=== PATIENT | male | born 1945 | race Caucasian/White ===

== ENCOUNTER 2021-07-11 19:16 | Emergency (ER) | payer MEDICARE, SELFPAY ==
[2021-07-11 19:18] VITALS: BP 145/95; PULSE 98; RESP 18; TEMP 36.8; O2SAT 99
--- NOTE | 2021-07-11 20:59 | ED.WOUNDLAC ---
HPI - Wound/Laceration General Chief Complaint: Wound/Laceration Stated Complaint: cellulitis Time Seen by Provider: 07/11/21 20:35 Source: patient History of Present Illness HPI narrative: Patient presents with concern for cellulitis. Ports a history of cellulitis and reports its painful and warm however his findings today are not the same but he was not sure what it was he came to ER for evaluation. Patient was been golfing all day had no injury that he can remember he got home and noted some redness on his right ankle that was on painful took pictures and his and was encouraged to go to the ER for further evaluation. Denies any trauma to the area denies any pain to the area denies any focal numbness or weakness denies any draining wounds denies any fevers, cough, congestion, nausea, vomiting Related Data Allergies Allergy/AdvReac Type Severity Reaction Status Date / Time No Known Allergies Allergy Unknown NONE Verified 07/11/21 19:22 Review of Systems Review of Systems: CONSTITUTIONAL: Denies fever, chills, or sweats. EYES: Denies visual changes, redness, or discharge. ENT: Denies rhinorrhea, congestion, sore throat, or otalgia. CARDIOVASCULAR: Denies chest pain, palpitations, or edema. RESPIRATORY: Denies cough or dyspnea. GASTROINTESTINAL: Denies abdominal pain, nausea, vomiting, or diarrhea. GENITOURINARY: Denies dysuria or hematuria. SKIN: Denies rash or itching. MUSCULOSKELETAL: Denies back pain, joint pain, or myalgia. NEUROLOGIC: Denies headache, numbness, dizziness, or weakness. PSYCHIATRIC: Denies anxiety or depression. All systems reviewed & are unremarkable except as noted in HPI and below PMFSH Family History Family History Other Family history of cardiovascular disease Social History Social History Smoking status: Smoker, status unknown Alcohol intake: current Exam Narrative: GENERAL: Well-appearing, well-nourished, and in no acute distress. HEAD: Normocephalic, atraumatic. EYES: PERRLA and EOMI. ENT: Nares clear, no rhinorrhea or epistaxis. Mucous membranes moist. NECK: Supple. No masses. No JVD EXTREMITIES: Normal range of motion. Nonblanching erythema on the medial aspect of the right ankle no tenderness no warmth no deformity no fluctuance SKIN: Warm, dry, no rash. NEURO: No focal deficits. Alert and oriented x3. PSYCH: Normal mood and affect. Course Vital Signs Vital signs: Vital Signs Temperature 36.8 C 07/11/21 19:18 Pulse Rate 98 07/11/21 19:18 Respiratory Rate 18 07/11/21 19:18 Blood Pressure 145/95 H 07/11/21 19:18 Pulse Oximetry 99 07/11/21 19:18 Oxygen Delivery Room Air 07/11/21 19:18 Temperature 36.8 C 07/11/21 19:18 Pulse Rate 98 07/11/21 19:18 Respiratory Rate 18 07/11/21 19:18 Blood Pressure 145/95 H 07/11/21 19:18 Pulse Oximetry 99 07/11/21 19:18 Oxygen Delivery Room Air 07/11/21 19:18 MDM - Wound/Laceration MDM Narrative Medical decision making narrative: H&P as above, vss, pt looks clinically well, exam redness without tenderness or warmth, labs/img considered, symptomatic relief available as needed, on reevaluation pt continues to looks clinically well. Suspect ruptured capillary, dns cellulitis, abscess's, fracture, major neurovascular compromise. plan to tx/monitor as op w/ pcm f/u findings/plan discussed with pt, pt agree/comfortable with plan, return precautions given Discharge Plan Discharge Clinical Impression: Blood vessel injury Patient Disposition: Home, Self-Care Condition: Improved Instructions: Antibiotic Form Additional Instructions: Please return if your symptoms worsen or fail to improve. If you develop a fever, can not eat/drink anything or if you have any other concerns. Follow-up/Referrals: Corey,Jesus Pritchard MD [Primary Care Provider] - Time of Disposition: 21:04
== END 2021-07-11 21:14 | disposition home or self-care (01) ==
LOC: ANHED 21:05
PROVIDERS: Emergency Provider Emergency Medicine; PCP Internal Medicine
DX: S95.901A Unspecified injury of unspecified blood vessel at ankle and foot level, right leg, initial encounter (principal); X58.XXXA Exposure to other specified factors, initial encounter
CPT/HCPCS: 99282

== ENCOUNTER 2021-11-05 10:45 | Outpatient (CLI) | payer MEDICARE, SELFPAY ==
--- NOTE | ~2021-11-05 | US_ITS ---
EXAMINATION:US venous doppler LE BI INDICATION:Lower extremity edema TECHNIQUE: Multiple grayscale, color flow and Doppler images of the right and left lower extremity de ep venous systems were obtained and reviewed. COMPARISON:No prior studies for comparison. FINDINGS: The common femoral, superficial femoral and popliteal veins demonstrate normal respiratory variation, augmentation and compressibility. Color flow is also seen within the posterior tibial, pe roneal, greater saphenous and profunda veins. IMPRESSION: 1: No lower extremity deep venous thrombosis. Reviewed, dictated and finalized at location B.
== END 2021-11-05 10:46 | disposition home or self-care (01) ==
PROVIDERS: PCP Internal Medicine; Visit Provider Orthopaedic Surgery
DX: R60.0 Localized edema (principal)
CPT/HCPCS: 93970

== ENCOUNTER 2021-12-18 12:32 | Outpatient (CLI) | payer MEDICARE, SELFPAY ==
--- NOTE | 2021-12-18 | ECHO_ITS ---
Patient Info Name: Aly Downey Age: 75 years : 1945 Gender: Male Ht: 67 in Wt: 189 lbs BSA: 2.04 m2 HR: 78 bpm BP: 136 / 88 mmHg Heart Rhythm: Sinus Rhythm Exam Date: 12/18/2021 1:06 PM Exam Location: [facility] Patient Status: Outpatient Admit Date: 12/18/2021 Staff Ordering Physician: Elin*Jesus MD Dry Starch Supervisor: Tali Garcia RDCS Attending Provider: Elin*Jesus MD Referring Physician: Corey CORTEZ; Exam Type: CA echo doppler color flow Study Info Indications - coronary microvascular disease Complete two-dimensional, color flow and Doppler transthoracic echocardiogram is performed. Summary 1. Complete two-dimensional, color flow and Doppler transthoracic echocardiogram is performed. 2. Left ventricular systolic function is normal, estimated at 50-55%. 3. Right ventricular chamber dimension is enlarged. 4. Right ventricular systolic function is normal. 5. Right atrial chamber dimension is mildly enlarged. 6. There is trace tricuspid valve regurgitation. 7. The aortic root size at the sinus of Valsalva is dilated. Left Ventricle Left ventricular chamber dimension is normal. Left ventricular systolic function is normal, estimated at 50-55%. There is no increased left ventricular wall thickness. Right Ventricle Right ventricular chamber dimension is enlarged. Right ventricular systolic function is normal. Left Atria Left atrial chamber dimension is normal. Right Atria Right atrial chamber dimension is mildly enlarged. Atrial Septum Intact interatrial septum visualized by color flow imaging. Aortic Valve The aortic valve is probable trileaflet. There is no aortic valve stenosis. There is no aortic valve regurgitation. Pulmonic Valve The pulmonic valve is not well visualized. Mitral Valve The mitral valve has normal leaflets. There is no mitral valve stenosis. There is no mitral valve regurgitation. Tricuspid Valve The tricuspid valve leaflets are normal. There is no significant tricuspid valve stenosis. There is trace tricuspid valve regurgitation. Pericardium/Pleural There is no pericardial effusion. Inferior Vena Cava Normal inferior vena cava with >50% collapse upon inspiration consistent with normal right atrial pressure. Aorta The aortic root size at the sinus of Valsalva is dilated. Left Ventricular Outflow Tract Name Value Normal LVOT 2D LVOT Diameter 2.0 cm LVOT Doppler LVOT Peak Gradient 3 mmHg LVOT Mean Gradient 2 mmHg LVOT VTI 15 cm LVOT VTI/AV VTI Ratio 0.7 LVOT Stroke Volume 48 ml LVOT CO 4.1 l/min LVOT CI 2.0 l/min/m2 Mitral Valve Name Value Normal MV Doppler
--- NOTE | 2021-12-19 12:44 | WPDPFTINT ---
PFT Procedure Performed PFT Procedure Performed Spirometry with Pre/Post Bronchodilator Plethysmography (Lung Vol) Diffusing Cap (DLCO) Flow Vol Loop PFT Interpretation Lung volumes were measured with the body plethysmography method. The elevated residual volume and FRC could be due to air trapping. Lung volumes are unremarkable. Spirometry showed normal FVC, normal FEV1 but diminished mid expiratory flow rates and a diminished FEV1 to FVC ratio 62%, suggestive of mild obstructive airway disease. Following administration of a bronchodilator there was no significant increase in expiratory flow rates. Lung diffusion capacity is within the normal range at 92% predicted. In comparison to previous study in 2019, the FVC is now greater by approximately 1.3 L and FEV1 is also greater by approximately 1.45 L. Lung volumes are essentially unchanged as is the lung diffusion capacity. Impression: Mild obstructive airway disease with no response to bronchodilators on this testing. Significantly improved since 2019.
== END 2021-12-18 12:33 | disposition home or self-care (01) ==
LOC: ANHCARD 12:33
PROVIDERS: PCP Internal Medicine; Visit Provider Internal Medicine
DX: I24.8 Other forms of acute ischemic heart disease (principal)
CPT/HCPCS: 93306; 94060; 94726; 94729

== ENCOUNTER 2022-03-15 21:37 | Emergency (ER) | payer MEDICARE, SELFPAY ==
--- NOTE | ~2022-03-15 | XR_ITS ---
Clinical Indication: Shortness of breath PA and lateral views of the chest: Comparison: None Findings: The lungs are clear, without evidence of focal consolidation or pleural effusion. Cardiome diastinal silhouette is within normal limits. Bones and soft tissues are unremarkable. Impression: Normal chest. Reviewed, dictated and finalized at [facility]. CAL AUTHORIZATION SPECIALIST Impression: Normal chest.
[2022-03-15 21:37] VITALS: BP 165/80; PULSE 90; RESP 18; TEMP 36.4; O2SAT 100
--- NOTE | 2022-03-15 21:59 | ECG_ITS ---
Measurements Intervals Wayne Rate: 80 P: 52 MD: 177 QRS: -71 QRSD: 174 T: 79 QT: 411 QTc: 475 Interpretive Statements SINUS RHYTHM RIGHT BUNDLE BRANCH BLOCK LEFT ANTERIOR FASCICULAR BLOCK LEFT VENTRICULAR HYPERTROPHY AND ST-T CHANGE CANNOT RULE OUT ANTEROSEPTAL INFARCT AGE INDETERMINATE ABNORMAL ECG NO PREVIOUS ECG AVAILABLE FOR COMPARISON Electronically Signed On 03-16-2022 16:15:20 SPECIAL PROCEDURES TECH by Storm Montano M.D.
[2022-03-15 22:28] LABS: Basophils Absolute Auto 0.1 K/mm3 (0.0-0.1); Basophils Percent Auto 0.8 % (0.2-1.2); Eosinophils Absolute Auto 0.5 K/mm3 (0-0.3); Eosinophils Percent Auto 7.5 % (0-4.4); Hematocrit 41.2 % (42.0-52.0); Immature Granulocyte Absolute 0.02 K/mm3 (0.00-0.031); Immature Granulocyte Percent A 0.3 % (0-0.5); Lymphocytes Absolute Auto 1.85 K/mm3 (0.9-3.2); Lymphocytes Percent Auto 25.7 % (18.3-44.2); Mean Corpuscular HGB Conc 31.6 g/dl (32-36); Mean Corpuscular Hemoglobin 29.2 pg (26-34); Mean Corpuscular Volume 92.6 fl (80-100); Mean Platelet Volume 9.7 fl (7.4-10.4); Monocytes Absolute Auto 0.6 K/mm3 (0.1-0.6); Monocytes Percent Auto 8.8 % (2.6-8.5); Neutrophils Absolute Auto 4.1 K/mm3 (1.3-6.7); Neutrophils Percent Auto 56.9 % (45.5-73.1); Platelet Count Result 232 k/mm3 (150-375); Red Blood Count 4.45 M/mm3 (4.6-6.20); Red Cell Distribution Width 13.2 % (11.5-14.5); White Blood Count 7.2 K/mm3 (4.5-10.0)
[2022-03-15 22:39] LABS: Alanine Aminotransferase 24 U/L (6-50); Albumin Level 3.9 g/dL (3.5-5.1); Alkaline Phosphatase 63 U/L (38-126); Anion Gap 4 mmol/L (8-16); Aspartate Amino Transferase 31 U/L (17-59); Bilirubin,Total 0.5 mg/dL (0.2-1.3); Blood Urea Nitrogen 18 mg/dL (9-20); Calcium 9.1 mg/dL (8.4-10.2); Carbon Dioxide 29 mmol/L (22-30); Chloride 106 mmol/L (98-107); Estimated CRCL calculation 61 ml/min; Estimated Glomerular Filt Rate > 60; Glucose 102 mg/dL (65-110); Potassium 4.4 mmol/L (3.4-5.0); Sodium 139 mmol/L (137-145)
--- NOTE | 2022-03-15 23:34 | ED.GENADULT ---
HPI - General Adult General Chief complaint: Shortness of Breath/Dyspnea Stated complaint: trouble breathing Time Seen by Provider: 03/15/22 23:06 History of Present Illness HPI narrative: 76-year-old male presented emerged department for evaluation of shakiness. Patient recently had his Symbicort switched and has been using his rescue inhaler more frequently. Patient states that intermittently after using the inhaler he had increased anxiety and shakiness. Patient states that he has been using inhaler multiple times a day but has not been using a spacer with this. Patient was concerned and using the inhaler more frequently because he felt that it was not working for him. Patient states he does have a spacer at home but has not been using it In the emergency room and patient states that he feels he is breathing without difficulty and denies any anxiety and has no shaking. Patient states he does have follow-up scheduled with his primary care physician to discuss the maintenance medication but they were concerned due to the shaking so they presented to the emergency department for evaluation Related Data Allergies Allergy/AdvReac Type Severity Reaction Status Date / Time No Known Allergies Allergy Unknown NONE Verified 07/11/21 19:22 Review of Systems Review of Systems: CONSTITUTIONAL: Denies fever, chills, or sweats. EYES: Denies visual changes, redness, or discharge. ENT: Denies rhinorrhea, congestion, sore throat, or otalgia. CARDIOVASCULAR: Denies chest pain, palpitations, or edema. RESPIRATORY: See HPI GASTROINTESTINAL: Denies abdominal pain, nausea, vomiting, or diarrhea. GENITOURINARY: Denies dysuria or hematuria. SKIN: Denies rash or itching. MUSCULOSKELETAL: Denies back pain, joint pain, or myalgia. NEUROLOGIC: Denies headache, numbness, or weakness. PSYCHIATRIC: Denies anxiety or depression. PMFSH Family History Family History Other Family history of cardiovascular disease Social History Social History Smoking status: Smoker, status unknown Alcohol intake: current Exam Narrative: APPEARANCE: Well appearing, no pain, no distress, well-nourished. HEAD: normocephalic, atraumatic. EYES: PERRLA/EOMI, conjunctivae clear. NOSE: Normal no drainage NECK: Supple. No adenopathy, no masses. RESPIRATORY: Airway patent, respirations nonlabored. Clear to auscultation bilaterally, no rales, rhonchi, wheezing. CARDIOVASCULAR: Regular rate and rhythm without murmurs rubs or gallops. ABDOMINAL: Soft, nontender, nondistended, normal bowel sounds MUSCULOSKELETAL: Moves all extremities. Strength/ROM intact, No edema, No calf tenderness. NEURO: Alert. Cranial nerves II through XII intact. Grossly intact SKIN: Warm, dry. Normal Color PSYCHIATRIC: Anxious affect Course Course Emergency Course: Patient is afebrile and is saturating 100% on room air. Patient did have elevated blood pressure upon arrival but this has improved. Patient's labs are within normal limits and chest x-ray showed no acute cardiopulmonary normality. Patient appears to be using his albuterol rescue inhaler increased frequency and incorrectly. Patient was advised to start using the spacer and to only use his albuterol 1 to 2 puffs every 4-6 hours. Patient and are comfortable with the plan for follow-up. They will have close follow-up with her primary care physician to discuss maintenance medication to help control his shortness of breath. At time of discharge patient's lungs were clear to auscultation he was saturating 100% on room air. Patient had no baseline tremor and patient's blood pressure was improved. Patient was afebrile with no leukocytosis. Patient's CMP was similar to his baseline. Differential diagnosis of pneumonia/rigors was also considered but with a negative chest x-ray and normal vitals this was less likely. Vital Signs Vital
[2022-03-16 00:18] VITALS: BP 134/59; PULSE 80; RESP 16; O2SAT 100
== END 2022-03-16 00:19 | disposition home or self-care (01) ==
PROVIDERS: Emergency Provider Emergency Medicine; PCP Internal Medicine
DX: T48.6X1A Poisoning by antiasthmatics, accidental (unintentional), initial encounter (principal); R25.8 Other abnormal involuntary movements; I45.2 Bifascicular block; R94.31 Abnormal electrocardiogram [ECG] [EKG]; I51.7 Cardiomegaly
CPT/HCPCS: 36415; 71046; 80053; 85025; 93005; 99284

== ENCOUNTER 2023-01-06 09:04 | Emergency (ER) | payer MEDICARE, SELFPAY ==
--- NOTE | ~2023-01-06 | US_ITS ---
EXAMINATION:US venous doppler LE LT INDICATION:Leg edema. TECHNIQUE: Multiple grayscale, color flow and Doppler images of the left lower extremity deep venous systems were obtained and reviewed. COMPARISON:11/05/2021 FINDINGS: The common femoral, superficial femoral and popliteal veins demonstrate normal respiratory variation, augmentation and compressibility. Color flow is also seen within the posterior tibial, pe roneal, greater saphenous and profunda veins. IMPRESSION: 1: No lower extremity deep venous thrombosis. Reviewed, dictated and finalized at location B. S AND EVENTS COORDINATOR
[2023-01-06 09:05] VITALS: BP 156/86; PULSE 98; RESP 16; TEMP 36.6; O2SAT 100
--- NOTE | 2023-01-06 10:02 | ED.EXTPRO ---
HPI - Extremity Problem General Chief complaint: Extremity Problem,Nontraumatic Stated complaint: extremity swelling Time Seen by Provider: 01/06/23 09:15 History of Present Illness HPI Narrative: 77-year-old male presenting to the emergency department for evaluation of left lower extremity swelling. Patient does have a history of a left hip replacement approximately 1 year ago. Patient states he has had some intermittent swelling of that left leg and has had previous ultrasounds that ruled out DVT. Patient reports that he was feeling poorly on Wednesday after smoking a turkey but then felt improved on Wednesday. Patient denies any other complaints. Patient states he has had swelling of the leg but denies any pain of the leg. Patient denies any associated chest pain or shortness of breath. Patient denies any fevers. Related Data Allergies Allergy/AdvReac Type Severity Reaction Status Date / Time No Known Allergies Allergy Unknown NONE Verified 01/06/23 09:08 Review of Systems Review of Systems: All systems reviewed & are unremarkable except as noted in HPI and below PMFSH Family History Family History Other Family history of cardiovascular disease Social History Social History Smoking status: Smoker, status unknown Alcohol intake: current Exam Narrative: APPEARANCE: Well appearing, no pain, no distress, well-nourished. HEAD: normocephalic, atraumatic. EYES: PERRLA/EOMI, conjunctivae clear. NOSE: Normal no drainage EARS:TMS clear with good light reflex. THROAT: Pharynx clear, no exudate. NECK: Supple. No adenopathy, no masses. RESPIRATORY: Airway patent, respirations nonlabored. Clear to auscultation bilaterally, no rales, rhonchi, wheezing. CARDIOVASCULAR: Regular rate and rhythm without murmurs rubs or gallops. ABDOMINAL: Soft, nontender, nondistended, normal bowel sounds MUSCULOSKELETAL: Left lower extremity edema, +3 pitting edema. NEURO: Alert. Cranial nerves II through XII intact. Good gait. Good coordination SKIN: No significant concerning for cellulitis bilateral lower legs, no skin breakdown between toes or on feet. Course Course Emergency Course: 77-year-old male presenting to the emergency department for evaluation of left lower extremity swelling. Patient is afebrile with no leukocytosis and a stable hemoglobin. No significant abnormalities on the CMP and patient was negative for the influenza RSV and for COVID. Doppler was negative for DVT. No evidence of cellulitis and patient is not being started on antibiotics. Patient was encouraged to have close follow-up with his primary care physician for the left lower extremity edema. All questions and concerns were addressed and patient was comfortable with the plan for discharge and close follow-up. Vital Signs Vital signs: Vital Signs Temperature 97.9 F 01/06/23 09:05 Pulse Rate 98 01/06/23 09:05 Respiratory Rate 16 01/06/23 09:05 Blood Pressure 156/86 H 01/06/23 09:05 Pulse Oximetry 100 01/06/23 09:05 Temperature 97.9 F 01/06/23 09:05 Pulse Rate 98 01/06/23 09:05 Respiratory Rate 16 01/06/23 09:05 Blood Pressure 156/86 H 01/06/23 09:05 Pulse Oximetry 100 01/06/23 09:05 MDM - Extremity (Nontraumatic) Differential Diagnosis Differential diagnosis: Likely cellulitis, superficial thrombophlebitis, lower extremity edema and deep vein thrombosis of lower extremity Lab Data 01/06/23 10:10 01/06/23 10:10 Labs: Lab Results 01/06/23 01/06/23 Range/Units 10:04 10:10 WBC 6.7 (4.5-10.0) K/mm3 RBC 4.67 (4.6-6.20) M/mm3 Hgb 13.6 L (14.0-18.0) g/dL Hct 43.2 (42.0-52.0) % MCV 92.5 (80-100) fl MCH 29.1 (26-34) pg MCHC 31.5 L (32-36) g/dl RDW 13.1 (11.5-14.5) % Plt Count 320 (150-375) k/mm3 MPV 9.8 (7.4-10.4) fl Immature Gr
[2023-01-06 10:17] LABS: Basophils Percent Auto 0.6 % (0.2-1.2); Eosinophils Absolute Auto 0.2 K/mm3 (0-0.3); Hematocrit 43.2 % (42.0-52.0); Hemoglobin 13.6 g/dL (14.0-18.0); Immature Granulocyte Absolute 0.08 K/mm3 (0.00-0.031); Immature Granulocyte Percent A 1.2 % (0-0.5); Lymphocytes Absolute Auto 1.45 K/mm3 (0.9-3.2); Lymphocytes Percent Auto 21.6 % (18.3-44.2); Mean Corpuscular HGB Conc 31.5 g/dl (32-36); Mean Corpuscular Hemoglobin 29.1 pg (26-34); Mean Corpuscular Volume 92.5 fl (80-100); Mean Platelet Volume 9.8 fl (7.4-10.4); Monocytes Absolute Auto 0.6 K/mm3 (0.1-0.6); Neutrophils Absolute Auto 4.3 K/mm3 (1.3-6.7); Neutrophils Percent Auto 64.6 % (45.5-73.1); Platelet Count Result 320 k/mm3 (150-375); Red Blood Count 4.67 M/mm3 (4.6-6.20); Red Cell Distribution Width 13.1 % (11.5-14.5); White Blood Count 6.7 K/mm3 (4.5-10.0)
[2023-01-06 10:24] LABS: Anion Gap 9 mmol/L (8-16); Blood Urea Nitrogen 13 mg/dL (9-20); Calcium 9.5 mg/dL (8.4-10.2); Carbon Dioxide 26 mmol/L (22-30); Chloride 104 mmol/L (98-107); Estimated CRCL calculation 78 ml/min; Estimated Glomerular Filt Rate > 60; Glucose 111 mg/dL (65-110); Potassium 4.2 mmol/L (3.4-5.0); Sodium 139 mmol/L (137-145)
[2023-01-06 10:31] LABS: INR 0.9; Prothrombin Time 13.1 Seconds (11.1-14.7)
[2023-01-06 10:32] LABS: Partial Thromboplastin Time 29.6 SECONDS (22.3-36.8)
[2023-01-06 10:46] LABS: Influenza A QL RT-PCR Negative (Negative); Influenza B QL RT-PCR Negative (Negative); RSV RNA, RT-PCR Negative (Negative); SARS-CoV-2 RNA PCR Negative (Negative)
== END 2023-01-06 13:32 | disposition home or self-care (01) ==
PROVIDERS: Emergency Provider Emergency Medicine; PCP Internal Medicine
DX: M79.89 Other specified soft tissue disorders (principal); Z20.822 Contact with and (suspected) exposure to COVID-19
CPT/HCPCS: 36415; 80048; 85025; 85610; 85730; 87637; 93971; 99284

== ENCOUNTER 2023-11-11 10:40 | Outpatient (CLI) | payer MEDICARE, SELFPAY ==
--- NOTE | ~2023-11-11 | MR_ITS ---
EXAMINATION: MR shoulder RT wo con DATE: 11/11/2023 11:34 INDICATION: Right shoulder pain TECHNIQUE: Magnetic resonance imaging (MRI) of the right shoulder was performed without intravenous c ontrast. Sequences included axial PD-weighted FS FSE, coronal oblique PD-weighted FS FSE, coronal obl ique T2-weighted FS FSE, sagittal PD-weighted FS FSE, and sagittal T1-weighted SE. COMPARISON: None. FINDINGS: Coracoacromial arch: The acromion undersurface is curved in morphology (type II). There is a normal variant unfused meso a cromial os acromiale he with tiny inferiorly directed osteophytes along the pseudoarthrosis. The cassie coacromial ligament is normal. Moderate acromioclavicular osteoarthritis. Rotator cuff: There is a full-thickness tear involving nearly the entire supraspinatus and infraspinatus tendons wi th only minimal residual intact portion of the posterior most infraspinatus and anterior most suprasp inatus tendons. Mild tendinopathy without tear of the teres minor tendon. The tear extends across the rotator cuff interval with complete subscapular tendon tear along the cephalad three fourths of the lesser tuberosity footplate. The caudal-most attachment of the the tendon and the subscapularis muscu lar attachment the lesser tuberosity remain intact. The bursal side of the more cephalad portion of t he tendon remains intact and contiguous with the intact transverse humeral ligament. There is mild fa tty atrophy of the supraspinatus, infraspinatus and subscapularis tendons. There is also prominent fe athery muscular edema in the infraspinatus muscle belly with mild feathery edema in the posterior sup raspinatus muscle belly. Biceps tendon, glenoid labrum and glenohumeral cartilage: Moderate tendinopathy of the long head biceps tendon without discrete tear. The biceps tendon is subl uxed across the medial rim of the intertubercular groove passing over the lesser tuberosity footplate of the torn portion of the subscapularis tendon. Glenoid labrum is normal. There is partial thicknes s cartilage loss along the superior glenoid with fissuring along the superior chondral labral junctio n with mild underlying subarticular edema-like signal change. There is additional partial thickness c hondral fissuring without degenerative subchondral changes which appears to involve at least 50% the cartilage thickness at the central to anterior glenoid. There is shallow chondral ulceration with cho ndral surface regularity at the anterior inferomedial aspect of the humeral head. There are small mar ginal osteophytes about the humeral head along the posterior rim of the glenoid. Fluid: Moderate-sized right humeral joint effusion which extends through the full-thickness rotator cuff tea r to communicate with additional moderate amount fluid in the subacromial/subdeltoid bursa. No loose osteochondral bodies. Bones: No fracture or pathologic marrow replacing process. Mild cortical irregularity and mild subcortical e za-like signal change along the greater tuberosity likely related to chronic rotator cuff disease. IMPRESSION: 1. Large full-thickness tear involving nearly the entire supraspinatus and infraspinatus tendons with additional tear involving the cephalad three fourths of the lesser tuberosity footplate of the subsc apularis tendon. There is mild fatty associated fatty muscular atrophy along with feathery muscular e za most prominent in the infraspinatus which along with the presence of a moderate-sized joint effu lona suggests the injury is relatively recent. 2. Moderate tendinopathy without tear of the long head biceps tendon which is subluxed across the med ial rim of the intertubercular groove and overlies the lesser tuberosity subscapularis tendon tear de fect. 3. Mild glenohumeral and moderate acromioclavicular osteoarthritis. Reviewed, dictated and finalized at lo
== END 2023-11-11 10:41 | disposition home or self-care (01) ==
LOC: GOSHIMG 10:42
PROVIDERS: PCP Orthopaedic Surgery; Visit Provider Orthopaedic Surgery
DX: S46.821A Laceration of other muscles, fascia and tendons at shoulder and upper arm level, right arm, initial encounter (principal); X58.XXXA Exposure to other specified factors, initial encounter; S46.221A Laceration of muscle, fascia and tendon of other parts of biceps, right arm, initial encounter; M62.521 Muscle wasting and atrophy, not elsewhere classified, right upper arm; M25.411 Effusion, right shoulder; M19.011 Primary osteoarthritis, right shoulder
CPT/HCPCS: 73221

== ENCOUNTER 2024-08-26 09:52 | Emergency (ER) | payer MEDICARE, SELFPAY ==
--- OUTSIDE RECORDS SUMMARY | 2024-08-26 09:54 | XMS_ITS | Encounter Summary ---
Author Organization [facility] Address [address] [place] [address] Care Team Providers Care School Director Name Role Phone Unavailable Primary Care Provider Unavailabl e Encounter Details Date Type Department Care Team (Late st Contact Info) Description 12/29/2022 Lab Requisition [facility] - DermPath Lab [address] [place] [address] Reena Barton DO [address] [facility] 3 [place] [address] Social History Tobacco Use Types Packs/Day Years Used Date Smoking Tobacco: Never Assessed Sex and Gender Information Value Date Recorded Sex Assigned at Not on file Legal Sex Male 11:53 AM CDT Gender Identity Not on file Sexual Orientation Not on file documented as of this encounter Plan of Treatment Not on file documented as of this encounter Procedures Procedure Name Priority Date/Time Associated Diagnosis Comments DERMATOPATHOLOGY Routine 12/29/2022 10:0 8 AM RADIOLOGY TRANSCRIPTIONIST documented in this encounter Results * DERMATOPATHOLOGY (12/29/2022 10:08 AM RADIOLOGY TRANSCRIPTIONIST) Case Report Dermatopathology Report Case: [id number] Authorizing Provider: Reena Barton DO Collected: 12/29/2022 10:08 AM Ordering Location: [facility] DermPath Lab Received: 12/29/2022 03:54 PM Pathologist: Mily Morgan MD Specimen: Skin, left upper arm 3 3:46 PM RADIOLOGY TRANSCRIPTIONIST DERMATOPATHOLOGY LABORATORY Final Diagnosis Specimen A. 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 The specimen consists of a shave biopsy measuring 7x6x1 mm. Jar 0. 3 3:46 PM [facility] DERMATOPATHOLOGY LABORATORY Microscopic Description Specimen A. SKIN, left upper arm: The epidermis shows parakeratosis, full thickness disorderly maturation of keratinocytes, mitoses at different levels, and dyskeratotic cells. 3 3:46 PM [facility] DERMATOPATHOLOGY LABORATORY Disclaimer An external and internal positive and negative controls are appropriate for the histochemical, immunohistochemical and immunofluorescence stain(s) in this case (if any), except where stated explicitly. The performance characteristics of the stain(s) cited in this report were developed and its performance characteristic determined by the Dermatopathology Laboratory at [facility], directed by Dr. Rosey Lipscomb. These tests need not be, and therefore are not, approved by the [place] Food and Drug Administration. The tests are used for clinical purposes. Billing Codes Specimen Charges Stain Charges 61954 1 3 3:46 PM [facility] DERMATOPATHOLOGY LABORATORY Embedded Images 3 3:46 PM [facility] DERMATOPATHOLOGY LABORATORY Pathology/Cytolo gy TISSUE SPECIMEN FROM SKIN / Unknown 12/29/2022 10:08 AM RADIOLOGY TRANSCRIPTIONIST 12/29/2022 3:54 PM [facility] us Reena Barton DO LAB - PATHOLOGY/CYTOLOGY ORDERABLES Final Result DERMATOPATHOLOGY LABORATORY [facility] - Department of Dermatology [address] [place] [address], [facility] [phone] documented in this encounter Visit Diagnoses Not on filedocumented in this encounter
--- OUTSIDE RECORDS SUMMARY | 2024-08-26 09:54 | XMS_ITS | Encounter Summary ---
Author Organization [facility] Address [address] [place] [address] Care Team Providers Care Adjunct Nursing Faculty Name Role Phone Unavailable Primary Care Provider Unavailabl e Encounter Details Date Type Department Care Team (Late st Contact Info) Description 02/24/2023 Lab Requisition [facility] - DermPath Lab [address] [facility] [place] [address] Reena Barton DO [address] [facility] 3 [place] [address] Social History Tobacco Use Types Packs/Day Years [...] Priority Date/Time Associated Diagnosis Comments DERMATOPATHOLOGY Routine 02/24/2023 8:43 AM PROGRAM HOST documented in this encounter Results * DERMATOPATHOLOGY (02/24/2023 8:43 AM PROGRAM HOST) Case Report Dermatopathology Report Case: [id number] Authorizing Provider: Reena Barton DO Collected: 02/24/2023 08:43 AM Ordering Location: [facility] DermPath Lab Received: 02/24/2023 01:31 PM Pathologist: Jennifer Galvez MD Specimen: Skin, left upper arm 4 4:06 PM PROGRAM HOST DERMATOPATHOLOGY LABORATORY Final Diagnosis Specimen A. SKIN, left upper arm: DERMAL SCAR RESIDUAL SQUAMOUS CELL CARCINOMA IN SITU NOT IDENTIFIED (L90.5) 4 4:06 PM PROGRAM HOST DERMATOPATHOLOGY LABORATORY at 1606 PROGRAM HOST Clinical History BX proven SCCIS 4 4:06 PM [facility] DERMATOPATHOLOGY LABORATORY Gross Description Specimen A: Received is one formalin filled container labeled with the patient's name and designated left upper arm. The specimen consists of a non-oriented ellipse of skin measuring 73x92u2 mm. The margin is inked green. The 12 o'clock and 6 o'clock tips are submitted in cassette 1. The remainder of the ellipse is serially sectioned and submitted in cassette 2 - 3. Jar 0. 4 4:06 PM [facility] DERMATOPATHOLOGY LABORATORY Microscopic Description Specimen A. SKIN, left upper arm: There are fibroblasts and collagen bundles oriented parallel to the skin surface. There are elongated blood vessels, some of which are oriented perpendicular to the skin surface. No residual squamous cell carcinoma is identified. 4 4:06 PM [facility] DERMATOPATHOLOGY LABORATORY Disclaimer An external and internal positive and negative controls are appropriate for the histochemical, immunohistochemical and immunofluorescence stain(s) in this case (if any), except where stated explicitly. The performance characteristics of the stain(s) cited in this report were developed and its performance characteristic determined by the Dermatopathology Laboratory at [facility], directed by Dr. Rosey Lipscomb. These tests need not be, and therefore are not, approved by the [place] Food and Drug Administration. The tests are used for clinical purposes. Billing Codes Specimen Charges Stain Charges 57419 1 4 4:06 PM [facility] DERMATOPATHOLOGY LABORATORY Embedded Images 4 4:06 PM [facility] DERMATOPATHOLOGY LABORATORY Pathology/Cytolo gy TISSUE SPECIMEN FROM SKIN / Unknown 02/24/2023 8:43 AM PROGRAM HOST 02/24/2023 1:31 PM [facility] us Reena Barton DO LAB - PATHOLOGY/CYTOLOGY ORDERABLES Final Result DERMATOPATHOLOGY LABORATORY [facility] - Department of Dermatology [address] Floor [address] [phone] documented in this encounter Visit Diagnoses Not on filedocumented in this encounter
--- OUTSIDE RECORDS SUMMARY | 2024-08-26 09:54 | XMS_ITS | Clinical Summary ---
Author Organization [facility] Address [address] [place] [address] Care Team Providers Care Customer Service Advocate Name Role Phone Unavailable Primary Care Provider Unavailabl e Source Comments [facility],non-owned Affiliates and Associated Physician Practices is amultiple site organization consisting of ambulatory clinics and hospital sitesin [place], [place], [place] and [place]. This disclosure is being madepursuant to the Care Everywhere program and may not contain all information available regarding this patient. Last updated 17.[facility] Social History Tobacco Use Types Packs/Day Years Used Date Smoking Tobacco: Never Assessed Sex and Gender Information Value Date Recorded Sex Assigned at Not on file Legal Sex Male 11:53 AM CDT Gender Identity Not on file Sexual Orientation Not on file Plan of Treatment Health Maintenance Due Date Last Done Comments MEDICARE AWV 12 MONTHS 1945 HEPATITIS C SCREENING 12/20/1965 DTAP/TDAP/TD VACCINES (1 - Tdap) 12/24/1966 PNEUMOCOCCAL VACCINE 50+ (1 of 1 - PCV) 12/24/1997 ZOSTER VACCINE (1 of 2) 12/24/1997 Respiratory Syncytial Virus (RSV) Vaccine Pt: or over 60 yrs (1 - 1-dose 75+ series) 12/24/2022 COVID-19 VACCINE (1 - 2023-2 5 season) 2023 DEPRESSION SCREENING 02/09/2024 INFLUENZA VACCINE (#1) 2024 HEPATITIS B VACCINE Aged Out No longe r eligible based on patient's age to complete this topic HIB VACCINE Aged Out No longer eligi ble based on patient's age to complete this topic HPV VACCINE Aged Out No longer eligi ble based on patient's age to complete this topic MENINGOCOCCAL (Group B) VACC INE SHARED DECISION-MAKING Aged Out No longer eligibl e based on patient's age to complete this topic MENINGOCOCCAL GROUPS A/C/Y/W VACCINE Aged Out No longer eligible b ased on patient's age to complete this topic Insurance MEDICARE [facility] Address: [address] [place] [address] MEDICARE [facility]
--- OUTSIDE RECORDS SUMMARY | 2024-08-26 09:54 | XMS_ITS | Referral Summary ---
Author Organization [facility] [address] Address [address] [place] [address] Care Team Providers Care Design Painter Name Role Phone Jesus Nicole MD Primary Care Provider Blayne Capone MD Unavailable [phone] Allergies No known active allergies Medications VENTOLIN HFA 90 mcg/actuation inhaler Take 2 puffs by mouth every 6 (six) hours as needed 0 8 Active levothyroxine (SYNTHROID, LEVOTHROID) 150 mcg tablet Take 150 mcg by mouth silk folder before breakfast 1 9 Active budesonide-form oterol (SYMBICORT) 160-4.5 mcg/actuation inhaler Inhale 2 puffs 2 (two) times a day Rinse mouth with water after use. Do not swallow. Active ezetimibe (ZETIA) 10 mg tablet Take 10 mg by mouth daily Active ibuprofen (ADVIL,MOTRIN) 200 mg tab/cap Take 400 mg by mouth every 6 (six) hours as needed for pain Active Active Problems Problem Noted Date Diagnosed Date Carpal tunnel syndrome on right 12/12/2020 Overview (12/12/2020): Added automatically from request for surgery [id number] Left carpal tunnel syndrome 11/08/2020 Overview (11/08/2020): Added automatically from request for surgery [id number] Social History Tobacco Use Types Packs/Day Years Used Date Smoking Tobacco: Never Smokeless Tobacco: Never Tobacco Cessation:Counseling Given: Not Answered Alcohol Use Standard Drinks/Week Comments Yes 7 (1 standard drink = 0.6 oz pur e alcohol) AUDIT-C Answer Date Recorded Q1: How often do you have a drink containing alcohol? 4 or more times a week 11/14/2020 Q2: How many drinks containi ng alcohol do you have on a typical day when you are drinking? 1 or 2 Q3: How often do you have si x or more drinks on one occasion? Less than monthly 11/14/2020 Sex and Gender Information Value Date Recorded Sex Assigned at Not on file Legal Sex Male 12:59 PM CATEGORY CONSULTANT Gender Identity Not on file Sexual Orientation Not on file Last Filed Vital Signs Vital Sign Reading Time Taken Comments Blood Pressure 158/84 12/02/2021 8:23 AM CDT Pulse 90 12/02/2021 8:23 AM CDT Temperature 36.4 C (97.5 F) 02/24/2021 8:49 AM CATEGORY CONSULTANT Respiratory Rate 15 12/02/2021 8:23 AM CDT Oxygen Saturation 98% 12/24/2020 8:15 AM CATEGORY CONSULTANT Inhaled Oxygen Concentration - - Weight 85.3 kg (188 lb) 12/02/2021 8:23 AM CDT Height 170.2 cm (5' 7) 12/02/2021 8:23 AM CDT Body Mass Index 29.44 12/02/2021 8:23 AM CDT Plan of Treatment Not on file Insurance MEDICARE [facility] MEDICARE [facility] Care Teams Design Painter Relationship Specialty Start Date End Date Jesus Nicole MD PCP - General Internal Medicine 02/21/18 Blayne Capone MD Consulting Physician Plastic Surgery 11/26/20
--- OUTSIDE RECORDS SUMMARY | 2024-08-26 09:54 | XMS_ITS | Continuity of Care Document ---
Author Organization [facility] Address [address] [place] [address] [address] [place] [address] Phone Care Team Providers Care Textile Converter Name Role Phone Mitchell Hughes Unavailable Unavailable Procedures Procedure Date Eye Exam Established Pt Advance Directives Directive Yes / No Effective Date File Name No Information Encounters Encounter Description Practice Location Reason(s) For Visit Diagnoses Date Provider Providers Copied on Encounter [facility], [address] [place] [address] [address], [place], [place], [id number], [place] tel:[phone] [facility] No Information [address] [facility] , [address], [place], [address], [place]. tel:[phone] Family History Family Member Type Diagnosis Age At Onset No Information Payers Payer name Insurance type Covered alliance party ID Authoriza tion(s) No Information Social History Type Description Quantity Date Captured Comments Sex Male Smoking Status No Information Chief Complaint And Reason For Visit No Information Reason For Referral Reason For Referral No Information History Of Present Illness Encounter Date Complaint History Of Prese nt Illness No Information Functional Status Date Functional Assessmen t No Information Instructions Date Instruction Additional Infor mation No Information Assessments Type Assessment Date No Information Patient Care Teams Name Effective Dates (start - stop) Status Members No Information
--- OUTSIDE RECORDS SUMMARY | 2024-08-26 09:54 | XMS_ITS | Clinical Summary ---
Author Organization [facility] Address [address] [place] [address] Care Team Providers Care Information Technology Project Manager Name Role Phone Jesus Nicole MD Primary Care Provider [phone] Social History Tobacco Use Types Packs/Day Years Used Date Smoking Tobacco: Never Assessed Sex and Gender Information Value Date Recorded Sex Assigned at Not on file Legal Sex Male 8:17 AM CDT Gender Identity Not on file Sexual Orientation Not on file Plan of Treatment Health Maintenance Due Date Last Done Comments Hepatitis C 12/24/1965 Annual Medicare Wellness Visit 12/24/2012 Zoster Vaccines (2 of 3) 01/04/2013 11/09/2012 DTaP, Tdap and Td Vaccines (2 - Tdap) 09/23/2022 09/23/2012 RSV Immunization or 60+ Years (1 - 1-dose 75+ series) 12/24/2022 COVID-19 Vaccine ( season) 2023 10/31/2022, 07/02/2022, 10/21/2021, Additional history exists Pneumococcal Vaccine: 50+ Years Completed 11/17/2015, 11/14/2014 Meningococcal B Vaccine Aged Out No l onger eligible based on patient's age to complete this topic Meningococcal Vaccine Aged Out No justin jennifer eligible based on patient's age to complete this topic RSV Immunizations Under 20 Months Aged Out No longer eligible based on patient's age to complete this topic Insurance MEDICARE [facility] Care Teams Information Technology Project Manager Relationship Specialty Start Date End Date Jesus Nicole MD [address] [address] PCP - General INTERNAL MEDICINE 12/08/22
--- OUTSIDE RECORDS SUMMARY | 2024-08-26 09:54 | XMS_ITS | Clinical Summary ---
Author Organization [facility] [address] Address [address] [place] [address] Care Team Providers Care Server Name Role Phone Jesus Nicole MD Primary Care Provider Blayne Capone MD Unavailable [phone] Allergies No known active allergies Medications VENTOLIN HFA 90 mcg/actuation inhaler Take 2 puffs by mouth every 6 (six) hours as needed 0 8 Active levothyroxine (SYNTHROID, LEVOTHROID) 150 mcg tablet Take 150 mcg by mouth early childhood associate teacher before breakfast 1 9 Active budesonide-form oterol [...] (12/12/2020): Added automatically from request for surgery [id number] Left carpal tunnel syndrome 11/08/2020 Overview (11/08/2020): Added automatically from request for surgery [id number] Surgical History Surgery Date Site/Laterality Comments CATARACT EXTRACTION 02/08/2017 - 02/07/2018 Right CARDIAC CATHETERIZATION 02/08/2017 - 02/07/2018 Negative per pt UMBILICAL HERNIA REPAIR 02/08/2017 - 02/07/2018 CARPAL TUNNEL RELEASE 11/26/2020 Left release left carpal tunnel Medical History Medical History Date Comments Hyperlipidemia Thyroid disease Allergic rhinitis Sinusitis Acid indigestion Cataract Asthma Bronchitis Hypothyroidism Sciatica Bilateral, R>L History of shortness of breath P t states was having increasing SOB, and was given NTG, as PCP thought it could be R/T cardiac issues. After cardiac testing and PFT, SOB was R/T asthma exacerbation. History of hyperthyroidism Pt [facility] was given R.I., and now has hypothyroidism. Family History Medical History Relation Name Comments Heart attack Brother Heart attack Father Heart attack Mother Relation Name Status Comments Brother (Age 66) Father (Age 51) Mother (Age 59) Sister Alive Social History Tobacco Use Types Packs/Day Years [...] on file Legal Sex Male 12:59 PM INVENTORY MANAGEMENT SPECIALIST Gender Identity Not on file Sexual Orientation Not on file Obstetrics History Last Filed Vital Signs Vital Sign Reading Time Taken Comments Blood Pressure 158/84 12/02/2021 8:23 AM CDT Pulse 90 12/02/2021 8:23 AM CDT Temperature 36.4 C (97.5 F) 02/24/2021 8:49 AM INVENTORY MANAGEMENT SPECIALIST Respiratory Rate 15 12/02/2021 8:23 AM CDT Oxygen Saturation 98% 12/24/2020 8:15 AM INVENTORY MANAGEMENT SPECIALIST Inhaled Oxygen Concentration - - Weight 85.3 kg (188 lb) 12/02/2021 8:23 AM CDT Height 170.2 cm (5' 7) 12/02/2021 8:23 AM CDT Body Mass Index 29.44 12/02/2021 8:23 AM CDT Plan of Treatment Health Maintenance Due Date Last Done Comments Depression Screening 1945 Hepatitis C Screening 1945 Hepatitis B Screening 12/24/1965 Abdominal Aortic Aneurysm (A AA) Screen 12/24/2012 Well Visit 65+ 12/24/2012 Zoster Vaccine (2 of 3) 01/04/2013 11/09/2012 DTaP/Tdap/Td Vaccine (2 - Tdap) 09/23/2022 3 Fall Risk Assessment 12/02/2022 12/02/2021, 11/26/2020, 04/13/2018 Influenza Vaccine (Season Ended) 2024 11/04/2021, 11/09/2019, 10/13/2019, Additional history exists Pneumococcal vaccine 65+ Completed 11/17/2015, 08/2014 Insurance [facility]ICARE [facility] Care Teams Server Relationship Specialty Start Date End Date Jesus Nicole MD PCP - General Internal Medicine 02/21/18 Blayne Capone MD Consulting Physician Plastic Surgery 11/26/20
--- OUTSIDE RECORDS SUMMARY | 2024-08-26 09:54 | XMS_ITS | Patient Health Record ---
Author Organization [facility] Address [address] [place] [address] [place] [address] Care Team Providers Care Net Fisher Name Role Phone JEM SANDHU MD Primary Care Provider Bernarda paige ALLERGIES No Known Allergies REASON FOR REFERRAL No Information MEDICATIONS Medication SIG (Take, Route, Frequency, Duration) Notes Start Date End Date Status Ezetimibe 10 MG 1 tablet Orally Once a day for 30 day(s) Active Levothyroxine Sodium 150 MCG 1 tablet in the morning on an empty stomach Orally Once a day for 30 day(s) Active Advil 200 MG 1 tablet with food o r milk as needed Orally Three times a day Active Symbicort 160-4.5 MCG/ACT 2 puffs Inhala tion Twice a day Active Ventolin HFA 108 (90 Base) MCG/ACT 1 puff as needed Inhalation every 4 hrs Active PROBLEMS Problem Type ICD Code Onset Dates Problem Status W/U Status Risk SNOMED Code Notes Problem Osseous stenosis of neural canal of lumbar region (M99.33) Active confirmed Spinal stenosis of lumbar region (44430681) Problem Radiculopathy, lumbar region (M54.16) Active confirmed Lumbar radiculopathy (358923071) Problem Other intervertebral disc degeneration, lumbar region (M51.36) Active confirmed Degeneration of lumbar intervertebral disc (60343982) Problem Spondylosis without myelopathy or radiculopathy, lumbosacral region (M47.817) Active confirmed Lumbosacral spondylosis without myelopathy (disorder) (91215546) Problem Spondylosis without myelopathy or radiculopathy, lumbar region (M47.816) Active confirmed Lumbosacral spondylosis without myelopathy (34631903) Problem Pain in left hip (M25.552) Active confirmed Pain of left hi p joint (finding) (463309300723216) Problem Osteoarthritis of hip, unspecified (M16.9) Active confirmed Osteoarthritis of hip (702566755) Problem Unilateral primary osteoarthritis, left hip (M16.12) Active confirmed Localized, primary osteoarthritis of the pelvic region and thigh (432984709) Problem Sacroiliitis, not elsewhere classified (M46.1) Active confirmed Solitary sacroiliitis (498770719) PLAN OF TREATMENT No Information Insurance Providers Payer Name Payer Address Payer Phone Subscriber Number Group Number Insured Name Patient Relationship to Insured Coverage Start Date Coverage End Date Medicare [place] [address] [address] [place] [address] [id number] BO MARTINEZ Self - patient is the insured [facility] [address] [place] [address] [id number] BO MARTINEZ Self - patient is the insured MEDICAL (GENERAL) HISTORY Medical History History ICD Code Hyperthyroidism Asthma BPH Umbilical hernia Skin cancer Hypothyroidism Surgical History Surgery Date(Month/Year) Bilateral carpal tunnel release 2020
--- OUTSIDE RECORDS SUMMARY | 2024-08-26 09:55 | XMS_ITS | Encounter Summary ---
Author Organization [facility] Address [address] [place] [address] Care Team Providers Care Advance Agent Name Role Phone Unavailable Primary Care Provider Unavailabl e Encounter Details Date Type Department Care Team (Late st Contact Info) Description 08/05/2022 Lab Requisition [facility] - DermPath Lab [address] [place] [id number] Naveed Borges MD [address] [place] [address] Social History Tobacco Use Types Packs/Day Years [...] Priority Date/Time Associated Diagnosis Comments DERMATOPATHOLOGY Routine 08/04/2022 12:0 0 AM CDT documented in this encounter Results * DERMATOPATHOLOGY (08/04/2022 12:00 AM CDT) Case Report Dermatopathology Report Case: [id number] Authorizing Provider: Naveed Borges MD Collected: 08/04/2022 12:00 AM Ordering Location: [facility] DermPath Lab Received: 08/05/2022 02:24 PM Pathologist: Sophy Galvez MD Specimen: Skin, left preauricular cheek 4:50 PM CDT DERMATOPATHOLOGY LABORATORY Final Diagnosis Specimen A. SKIN, left preauricular cheek: SQUAMOUS CELL CARCINOMA, WELL DIFFERENTIATED (C44.329) (see microscopic description) 3 4:50 PM CDT DERMATOPATHOLOGY LABORATORY at 1650 CDT Clinical History R/O SCC 3 4:50 PM CDT DERMATOPATHOLOGY LABORATORY Gross Description Specimen A: Received is one formalin filled container labeled with the patient's name and designated left preauricular cheek. The specimen consists of a shave biopsy measuring 71m85n4 mm. Jar 0. 3 4:50 PM CDT DERMATOPATHOLOGY LABORATORY Microscopic Description Specimen A. SKIN, left preauricular cheek: Arising in the epidermis and extending into the dermis there are irregularly shaped aggregates of keratinocytes showing evidence of premature cornification. Focal acantholysis is noted. 3 4:50 PM CDT DERMATOPATHOLOGY LABORATORY Disclaimer An external and internal positive and negative controls are appropriate for the histochemical, immunohistochemical and immunofluorescence stain(s) in this case (if any), except where stated explicitly. The performance characteristics of the stain(s) cited in this report were developed and its performance characteristic determined by the Dermatopathology Laboratory at [facility], directed by Dr. Rosey Lipscomb. These tests need not be, and therefore are not, approved by the [place] Food and Drug Administration. The tests are used for clinical purposes. Billing Codes Specimen Charges Stain Charges 60332 1 3 4:50 PM CDT DERMATOPATHOLOGY LABORATORY Embedded Images 3 4:50 PM CDT DERMATOPATHOLOGY LABORATORY Pathology/Cytolog y TISSUE SPECIMEN FROM SKIN / Unknown 08/04/2022 08/05/2022 2:24 PM CDT Naveed Borges MD LAB - PATHOLOGY/CYTOLOGY ORD ERABLES Final Result DERMATOPATHOLOGY LABORATORY [facility] - Department of Dermatology [address], [address] [phone] documented in this encounter Visit Diagnoses Not on filedocumented in this encounter
--- OUTSIDE RECORDS SUMMARY | 2024-08-26 09:55 | XMS_ITS | Data Portability ---
Author Organization [facility], Main Office Address [address] [place] [address] Care Team Providers Care Nicker Name Role Phone JEM NICOLE Primary Care Provider JEM NICOLE Referring Provider Assessment Encounter Date Assessment Date Assessment LastModified by Organization Details LastModified Time 01/08/2023 01/08/2023 HPI: Patient returns. 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 Hip is doing very well having no complaints or problems with it. Physical exam: Patient is walking very well today. He has no limp. He has excellent range of motion of the hip without discomfort. He has elhc-hu-[id number] e edema in the left lower extremity none on the right. 2+ dorsalis pedis pulse. impression patient is 1 year out left anterior total hip arthroplasty. His x-rays look excellent. Has chronic swelling in left lower extremity that has been evaluated for DVT in the past. This has gotten a little bit more problematic over last year he states. I did recommend that he use compression sock on a full-time basis. He is at risk for cellulitis in the leg if it gets too swollen which could in turn cause in infection into his hip. We talked about all this. He is going to go purchase compression stockings start wearing them on a regular basis. He also had some issues with his right foot and ankle. He has severe pes planus and overpronation. Recommended some custom orthotics script for that as well. With regards to his hip he is doing very well and we can see back 5 years for routine x-ray surveillance or sooner if he problems. 20 minutes was spent in treatment patient more than half of this [id number] conversation [email or web address] Not available 01/08/2023 10:29:04 Plan of Treatment Reminders Order Date Submit Date Provider Last Modified By Organization Details Last Modified Time Details Appointments None recorded. Lab PSA, serum or plasma 2024 025 [employer] [facility], [address], [place], [place], [address], 5 08:14:30 lipid panel, serum 2024 025 [email or web address] [facility], [address], [place], [place], [address], 5 08:18:55 lipid panel, serum 2024 025 [employer] [facility], [address], [place], [place], [address], 5 08:14:24 CMP, serum or plasma 2024 025 [employer] [facility], [address], [place], [address], 5 08:14:26 TSH, serum or plasma 2024 025 [employer] [facility], [address], [place], [place], [address], 5 08:14:29 CBC w/ auto diff 2024 025 [employer] [facility], [address], [place], [address], 5 08:14:27 T4, free, serum 2024 025 [employer] [facility], [address], [place], [address], 5 08:14:28 lipoprotein a, qn, serum 2024 025 [employer] [facility], [address], [place], [address], 5 08:14:31 TSH, serum or plasma 2023 024 [employer] [facility], [address], [place], [place], [address], 4 04:15:03 T4, free, serum 2023 024 [employer] [facility], [address], [place], [address], 4 04:15:01 lipid panel, serum 2023 024 [employer] [facility], [address], [place], [address], 4 04:14:57 CMP, serum or plasma 2023 024 [employer] [facility], [address], [place], [address], 4 04:14:59 CBC w/ auto diff 2023 024 [employer] [facility], [address], [place], [address], 4 04:15:00 PSA, serum or plasma 2022 023 [email or web address] [employer] [facility], [address], [place], [address], 3 12:51:22 lipid panel, serum 2022 023 [email or web address] [employer] [facility], [address], [place], [address], 3 12:51:22 CMP, serum or plasma 2022 023 [id number] [employer] [facility], [address], [place], [address], 12:51:22 Referral None recorded. Procedures None recorded. Surgeries None recorded. Imaging XR, hip + pelvis, unilateral 2022 023 [email or web address] [facility], [address], [place], [address], 11:34:53 Medication Orders None recorded. Patient TargetsNo targets recorded. Patient Instructions Encounter Date Encounter Id Patient Instructions Last Modified By Organization Details Last Modified Time 12/22/2022 [id number] Hypertension, hyperlipidemia, asthma and spinal stenosis of the cervical area. Will continue on current Rx. Will check a lipid panel and PSA at the end of next month. Otherwise is clinically stable. Follow-up in six months Portions of the record may have been created with voice recognition software. Occasional wrong-word or mdhup-a-kjik substitutions may have occurred due to the inherent limitations of voice recognition software. Read the chart carefully and recognize, using context, where substitutions have occurred. [email or web address] Not available 12/22/2022 11:54:52 06/24/2023 [id number] Follow-up hypertension, hypothyroidism, hyperlipidemia, asthma, cervical radiculopathy and obesity class one. All clinically stable. Overall is doing approximately the same. Still has some problems with the neck in cervical radicular symptoms but no balance problems. Has been seen by Neurology who recommends no additional testing at this time. Overall is doing reasonably well. Had blood work performed back in February. At that time cholesterol 209 HDL 65 LDL 125. Last PSA in January was 2.92. Will continue on current Rx follow-up in six months. Next Appointment: 6 Months Approximate Date: 12/21/2023 Portions of the record may have been created with voice recognition software. Occasional wrong-word or dibki-r-bhhu substitutions may have occurred due to the inherent limitations of voice recognition software. Read the chart carefully and recognize, using context, where substitutions have occurred. [email or web address] Not available 06/24/2023 10:39:03 12/23/2023 [id number] dementia rating scale-2* [email or web address] Not available 12/23/2023 11:11:25 alcohol misuse* Not available 12/23/2023 11:11:25 depression screening* [email or web address] Not available 12/23/2023 11:11:25 multi-dimensiona l health assessment questionnaire* Not available 12/23/2023 11:11:25 Personalized Hea lt Plan and Screening Recommendations Advance Directives - Do you have one? Yes Advance Directives - Do we have your advance directive on file in your health record? No, please bring in a copy at your earliest convenience Primary Prevention/Interven tion (prevents or decreases the chance of common diseases from occurring) Smoking Risk: Non Smoker Alcohol Misuse Screening: Negative Weight: Overweight try to lose 10% of your body weight Physical activity: Need more exercise/physical activity Nutrition: Average Eat heart healthy diet Fall Risk (screened today): Low Vaccines Pneumococcal: No further needed Influenza: Your next one in the fall of this year Chronic Disease Risks Stroke: Intermediate Risk Active diagnosis, Continue current treatment plan Heart Attack: Intermediate Risk Active diagnosis, Continue current treatment plan Clogging of the Arteries: Intermediate Risk Active diagnosis, Continue current treatment plan Diabetes: Low Risk I have no recommendations Secondary Prevention/Interven tion (detects treatable diseases before they may cause symptoms, disability, or ) Prostate Cancer Screening: up to date Colon Cancer Screening: Colonoscopy Recommended Date Screening Last Performed: __2013___ Eye Disease Screening: Your next exam in: goes yearly Dementia Risk: Low I have no recommendations Depression Screening: Negative I have no recommendations [email or web address] Not available 12/23/2023 11:01:58 Medicare wellnes s examination and risk assessment stable. Follow-up for essential hypertension, hyperlipidemia, acquired hypothyroidism and asthma all clinically stable. No interval complaints of any new problems. Will check blood work in the form of CBC, CMP, lipid and thyroid. Is not quite due for a PSA. Does need a Cologuard test. Has had his influenza as well as COVID booster. Follow-up in six months. Additional Orders - Directives - Recommendations 1. Cologuard Follow Up: 6 Months Approximate Date: 06/20/2024 [email or web address] Not available 12/23/2023 11:11:04 06/22/2024 [id number] Follow-up essent ial hypertension, hyperlipidemia, hypothyroidism as well as asthma. Check blood work consisting of CBC, CMP, lipid, thyroid, Lipoprotein A and PSA. Continue on current medications follow-up in six months Portions of record are template driven. When necessary additional context will be provided. Additionally some portions have been created with voice recognition software. Occasional wrong-word or ktbhz-k-obgu substitutions may have occurred due to the inherent limitations of voice recognition software. Read the chart carefully and recognize, using context, where substitutions may have occurred. Created: Jem Nicole M.D. 06.22.2024 09:53 AM [email or web address] Not available 06/22/2024 10:53:07 Reason for Referral None Reported. Results Created Date Observation Date Name Description Value Unit Range Abnormal Flag Note LastModifiedBy Organization Detail LastModifiedTime 01/29/2002/02/2023 LIPID PANEL , STAND GOPAL cholesterol, total 209 mg/dL <200 high Not Available [address] [address] [place], [address], 02/02/2023 18:36:29 01/29/20 23 02/02/2023 LIPID PANEL , STAND GOPAL HDL cholesterol 65 mg/dL > or = 40 normal Not Available [address] [address] [place], [address], 02/02/2023 18:36:29 01/29/20 23 02/02/2023 LIPID PANEL , STAND GOPAL triglyceride s 90 mg/dL <150 normal Not Available [address] [address] [place], [address], 02/02/2023 18:36:29 01/29/2002/02/2023 LIPID PANEL , STAND GOPAL LDL-choleste rol 125 mg/dL _(quintin c) high Refer ence range : <100 Paola able range <100 mg/dL for prima ry preve ntion ; <70 mg/dL for patie nts with CHD or diabe tic patie nts with > or = 2 CHD risk facto rs. LDL-C is now calcu lated using the Unique n-Hop kins calcu osman n, which is a valid ated novel metho d jessika sapp r accur acy than the Fried krissy equat ion in the estim ation of LDL-C . Unique holman SS et al. MARIANO. 2013; 310(1 9): 2061- 2068 (http ://ed ucati on.[employer] [place] guid[employer]Spot. com/f aq/FA Q164) Not Available [facility] [address] [address] [place], [address], 02/02/2023 18:36:29 01/29/20 23 02/02/2023 LIPID PANEL , STAND GOPAL chol/HDLC ratio 3.2 (calc ) <5.0 normal Not Available [address] [address] [address], [place], [address], 02/02/2023 18:36:29 01/29/2002/02/2023 LIPID PANEL , STAND GOPAL non HDL cholesterol 144 mg/dL _(quintin c) <130 high For patie nts with diabe mahesh plus 1 major ASCVD risk facto r, treat ing to a non-H DL-C goal of <100 mg/dL (LDL- C of <70 mg/dL ) is consi dered a thera peuti c optio n. Not Available [address] [address] [place], [address], 02/02/2023 18:36:29 01/29/2002/02/2023 COMPR EHENS GENEVIEVE METAB OLIC PANEL glucose 105 mg/dL 65-99 high Fasti ng refer ence inter cruz For someo ne witho ut known diabe mahesh, a gluco se value betwe en 100 and 125 mg/dL is consi stent with predi abete s and shoul d be confi rmed with a follo w-up test. Not Available [facility] [address] [address] [place], [address], 02/02/2023 18:36:30 01/29/20 23 02/02/2023 COMPR EHENS GENEVIEVE METAB OLIC PANEL urea nitrogen (BUN) 15 mg/dL 7-25 normal Not Available [facility] [address] [address] [place], [address], 02/02/2023 18:36:30 01/29/20 23 02/02/2023 COMPR EHENS GENEVIEVE METAB OLIC PANEL creatinine 0.90 mg/dL 0.70-1 .28 normal Not Available [address], [address], 02/02/2023 18:36:30 01/29/20 23 02/02/2023 COMPR EHENS GENEVIEVE METAB OLIC PANEL eGFR 89 mL/mi n/1.7 3m2 > or = 60 normal Not Available [address], [address], 02/02/2023 18:36:30 01/29/20 23 02/02/2023 COMPR EHENS GENEVIEVE METAB OLIC PANEL BUN/creatini ne ratio SEE NOTE: (calc ) 6-22 Not Repor ligia: BUN and Creat inine are withi n refer ence range . Not Available [address], [address], 02/02/2023 18:36:30 01/29/20 23 02/02/2023 COMPR EHENS GENEVIEVE METAB OLIC PANEL sodium 140 mmol/ L 135-14 6 normal Not Available [address], [address], 02/02/2023 18:36:30 01/29/20 23 02/02/2023 COMPR EHENS GENEVIEVE METAB OLIC PANEL potassium 4.3 mmol/ L 3.5-5. 3 normal Not Available [address], [address], 02/02/2023 18:36:30 01/29/20 23 02/02/2023 COMPR EHENS GENEVIEVE METAB OLIC PANEL chloride 104 mmol/ L 98-110 normal Not Available [address], [address], 02/02/2023 18:36:30 01/29/20 23 02/02/2023 COMPR EHENS GENEVIEVE METAB OLIC PANEL carbon dioxide 28 mmol/ L 20-32 normal Not Available [address], [address], 02/02/2023 18:36:30 01/29/20 23 02/02/2023 COMPR EHENS GENEVIEVE METAB OLIC PANEL calcium 9.2 mg/dL 8.6-10 .3 normal Not Available [address], [address], 02/02/2023 18:36:30 01/29/20 23 02/02/2023 COMPR EHENS GENEVIEVE METAB OLIC PANEL protein, total 7.0 g/dL 6.1-8. 1 normal Not Available [address], [address], 02/02/2023 18:36:30 01/29/20 23 02/02/2023 COMPR EHENS GENEVIEVE METAB OLIC PANEL albumin 4.3 g/dL 3.6-5. 1 normal Not Available [address], [address], 02/02/2023 18:36:30 01/29/20 23 02/02/2023 COMPR EHENS GENEVIEVE METAB OLIC PANEL globulin 2.7 g/dL_ (calc ) 1.9-3. 7 normal Not Available [address], [address], 02/02/2023 18:36:30 01/29/20 23 02/02/2023 COMPR EHENS GENEVIEVE METAB OLIC PANEL albumin/glob ulin ratio 1.6 (calc ) 1.0-2. 5 normal Not Available [address], [address], 02/02/2023 18:36:30 01/29/20 23 02/02/2023 COMPR EHENS GENEVIEVE METAB OLIC PANEL bilirubin, total 0.6 mg/dL 0.2-1. 2 normal Not Available [facility] [address] [address] [place], [address], 02/02/2023 18:36:30 01/29/20 23 02/02/2023 COMPR EHENS GENEVIEVE METAB OLIC PANEL alkaline phosphatase 63 U/L 35-144 normal Not Available [facility] [employer] [address] [address] [place], [address], 02/02/2023 18:36:30 01/29/20 23 02/02/2023 COMPR EHENS GENEVIEVE METAB OLIC PANEL AST 18 U/L 10-35 normal Not Available [facility] [address] [address] [place], [address], 02/02/2023 18:36:30 01/29/20 23 02/02/2023 COMPR EHENS GENEVIEVE METAB OLIC PANEL ALT 13 U/L 9-46 normal Not Available [address] [address] [place], [address], 02/02/2023 18:36:30 01/29/20 23 02/02/2023 PSA, POST- PROST ATECT CALEB PSA, icma 2.92 NG/mL REFER ENCE RANGE S for PSA: LESS THAN 0.10 ng/mL AFTER RADIC AL PROST ATECT CALEB. 4.0 ng/mL OR LESS IN HEALT HY MALES WITHO UT PROST ATECT CALEB. PSA value s obtai bonny with diffe rent assay metho ds or kits canno t be used inter roth eably . This test was perfo rmed using the Beck an Coult er DxI metho d. PSA, ICMA is not to be used as a diagn ostic proce dure witho ut confi rmati on of the diagn osis by anoth er estab lishe d produ ct or proce dure. The lower limit of accur ate quant ifica tion for this assay is 0.02 ng/mL . PSA value s less than 0.02 ng/mL canno t be accur ately measu red and will be repor ligia as less than 0.02 ng/mL . Speci mens with PSA level s below the lower limit of accur ate quant ifica tion shoul d be consi dered as negat genevieve. In patie nts with a negat genevieve resul t for post prost atect caleb PSA, javier silva of PSA level s at regul ar inter vals, along with physi quintin exami natio ns and other tests , may help to detec t recur rent prost ate cance r. Not Available [address] [address] [place], [address], 02/02/2023 18:36:31 12/27/19 24 12/28/2023 LIPID PANEL , STAND GOPAL cholesterol, total 192 mg/dL <200 normal Not Available [address], [address], 12/28/2023 04:14:57 12/27/19 24 12/28/2023 LIPID PANEL , STAND GOPAL HDL cholesterol 60 mg/dL > or = 40 normal Not Available [address] [address] [place], [address], 12/28/2023 04:14:57 12/27/19 24 12/28/2023 LIPID PANEL , STAND GOPAL triglyceride s 80 mg/dL <150 normal Not Available [address], [address], 12/28/2023 04:14:57 12/27/19 24 12/28/2023 LIPID PANEL , STAND GOPAL LDL-choleste rol 115 mg/dL _(quintin c) high Refer ence range : <100 Paola able range <100 mg/dL for prima ry preve ntion ; <70 mg/dL for patie nts with CHD or diabe tic patie nts with > or = 2 CHD risk facto rs. LDL-C is now calcu lated using the Unique n-Hop kins calcu osman n, which is a valid ated novel metho d provi ding sekou r accur acy than the Fried krissy equat ion in the estim ation of LDL-C . Unique holman SS et al. MARIANO. 2013; 310(1 9): 2061- 2068 (http ://ed ucati on.[employer] [place] [employer]. com/f aq/FA Q164) Not Available [address] [address] [place], [address], 12/28/2023 04:14:57 12/27/19 24 12/28/2023 LIPID PANEL , STAND GOPAL chol/HDLC ratio 3.2 (calc ) <5.0 normal Not Available [facility] [address] [address] [place], [address], 12/28/2023 04:14:57 12/27/1912/28/2023 LIPID PANEL , STAND GOPAL non HDL cholesterol 132 mg/dL _(quintin c) <130 high For patie nts with diabe mahesh plus 1 major ASCVD risk facto r, treat ing to a non-H DL-C goal of <100 mg/dL (LDL- C of <70 mg/dL ) is consi dered a thera peuti c optio n. Not Available [address] [address] [place], [address], 12/28/2023 04:14:57 12/27/1912/28/2023 COMPR EHENS GENEVIEVE METAB OLIC PANEL glucose 107 mg/dL 65-99 high Fasti ng refer ence inter cruz For someo ne witho ut known diabe mahesh, a gluco se value betwe en 100 and 125 mg/dL is consi stent with predi abete s and shoul d be confi rmed with a follo w-up test. Not Available [facility] [address] [address] [place], [address], 12/28/2023 04:14:59 12/27/1912/28/2023 COMPR EHENS GENEVIEVE METAB OLIC PANEL urea nitrogen (BUN) 17 mg/dL 7-25 normal Not Available [facility] [address] [address] [place], [address], 12/28/2023 04:14:59 12/27/19 24 12/28/2023 COMPR EHENS GENEVIEVE METAB OLIC PANEL creatinine 0.88 mg/dL 0.70-1 .28 normal Not Available [address], [address], 12/28/2023 04:14:59 12/27/19 24 12/28/2023 COMPR EHENS GENEVIEVE METAB OLIC PANEL eGFR 89 mL/mi n/1.7 3m2 > or = 60 normal Not Available [address], [address], 12/28/2023 04:14:59 12/27/1912/28/2023 COMPR EHENS GENEVIEVE METAB OLIC PANEL BUN/creatini ne ratio SEE NOTE: (calc ) 6-22 Not Repor ligia: BUN and Creat inine are withi n refer ence range . Not Available [address], [address], 12/28/2023 04:14:59 12/27/19 24 12/28/2023 COMPR EHENS GENEVIEVE METAB OLIC PANEL sodium 140 mmol/ L 135-14 6 normal Not Available [address], [address], 12/28/2023 04:14:59 12/27/19 24 12/28/2023 COMPR EHENS GENEVIEVE METAB OLIC PANEL potassium 4.6 mmol/ L 3.5-5. 3 normal Not Available [address], [address], 12/28/2023 04:14:59 12/27/19 24 12/28/2023 COMPR EHENS GENEVIEVE METAB OLIC PANEL chloride 105 mmol/ L 98-110 normal Not Available [address], [address], 12/28/2023 04:14:59 12/27/19 24 12/28/2023 COMPR EHENS GENEVIEVE METAB OLIC PANEL carbon dioxide 29 mmol/ L 20-32 normal Not Available [address], [address], 12/28/2023 04:14:59 12/27/19 24 12/28/2023 COMPR EHENS GENEVIEVE METAB OLIC PANEL calcium 9.1 mg/dL 8.6-10 .3 normal Not Available [address], [address], 12/28/2023 04:14:59 12/27/19 24 12/28/2023 COMPR EHENS GENEVIEVE METAB OLIC PANEL protein, total 6.5 g/dL 6.1-8. 1 normal Not Available [address], [address], 12/28/2023 04:14:59 12/27/19 24 12/28/2023 COMPR EHENS GENEVIEVE METAB OLIC PANEL albumin 4.0 g/dL 3.6-5. 1 normal Not Available [address], [address], 12/28/2023 04:14:59 12/27/19 24 12/28/2023 COMPR EHENS GENEVIEVE METAB OLIC PANEL globulin 2.5 g/dL_ (calc ) 1.9-3. 7 normal Not Available [address], [address], 12/28/2023 04:14:59 12/27/19 24 12/28/2023 COMPR EHENS GENEVIEVE METAB OLIC PANEL albumin/glob ulin ratio 1.6 (calc ) 1.0-2. 5 normal Not Available [address], [address], 12/28/2023 04:14:59 12/27/19 24 12/28/2023 COMPR EHENS GENEVIEVE METAB OLIC PANEL bilirubin, total 0.5 mg/dL 0.2-1. 2 normal Not Available [address] [address] [place], [address], 12/28/2023 04:14:59 12/27/19 24 12/28/2023 COMPR EHENS GENEVIEVE METAB OLIC PANEL alkaline phosphatase 58 U/L 35-144 normal Not Available [facility] [employer] [address] [address] [place], [address], 12/28/2023 04:14:59 12/27/19 24 12/28/2023 COMPR EHENS GENEVIEVE METAB OLIC PANEL AST 23 U/L 10-35 normal Not Available [address], [address], 12/28/2023 04:14:59 12/27/19 24 12/28/2023 COMPR EHENS GENEVIEVE METAB OLIC PANEL ALT 16 U/L 9-46 normal Not Available [address], [address], 12/28/2023 04:14:59 12/27/19 24 12/28/2023 CBC (INCL UDES DIFF/ PLT) white blood cell count 6.2 thous and/u L 3.8-10 .8 normal Not Available [address], [address], 12/28/2023 04:15:00 12/27/19 24 12/28/2023 CBC (INCL UDES DIFF/ PLT) red blood cell count 4.69 abigail on/uL 4.20-5 .80 normal Not Available [address] [address] [place], [address], 12/28/2023 04:15:00 12/27/19 24 12/28/2023 CBC (INCL UDES DIFF/ PLT) hemoglobin 13.9 g/dL 13.2-1 7.1 normal Not Available [facility] [address], [address], 12/28/2023 04:15:00 12/27/19 24 12/28/2023 CBC (INCL UDES DIFF/ PLT) hematocrit 42.8 % 38.5-5 0.0 normal Not Available [address], [address], 12/28/2023 04:15:00 12/27/19 24 12/28/2023 CBC (INCL UDES DIFF/ PLT) MCV 91.3 fL 80.0-1 00.0 normal Not Available [address], [address], 12/28/2023 04:15:00 12/27/1912/28/2023 CBC (INCL UDES DIFF/ PLT) MCH 29.6 pg 27.0-3 3.0 normal Not Available [address], [address], 12/28/2023 04:15:00 12/27/19 24 12/28/2023 CBC (INCL UDES DIFF/ PLT) MCHC 32.5 g/dL 32.0-3 6.0 normal For adult s, a sligh t decre ase in the calcu lated MCHC value (in the range of 30 to 32 g/dL) is most likel y not clini parisa signi fican t; stefani er, it shoul d be inter prete d with cauti on in [facility] n with other red cell zac eters and the patie nt's clini quintin condi tion. Not Available [address], [address], 12/28/2023 04:15:00 12/27/1912/28/2023 CBC (INCL UDES DIFF/ PLT) RDW 12.3 % 11.0-1 5.0 normal Not Available [address], [address], 12/28/2023 04:15:00 12/27/19 24 12/28/2023 CBC (INCL UDES DIFF/ PLT) platelet count 261 thous and/u L 140-40 0 normal Not Available [address], [address], 12/28/2023 04:15:00 12/27/19 24 12/28/2023 CBC (INCL UDES DIFF/ PLT) MPV 10.4 fL 7.5-12 .5 normal Not Available [address], [address], 12/28/2023 04:15:00 12/27/1912/28/2023 CBC (INCL UDES DIFF/ PLT) absolute neutrophils 3993 cells /uL 1500-7 800 normal Not Available [address], [address], 12/28/2023 04:15:00 12/27/1912/28/2023 CBC (INCL UDES DIFF/ PLT) absolute lymphocytes 1277 cells /uL 850-39 00 normal Not Available [address], [address], 12/28/2023 04:15:00 12/27/1912/28/2023 CBC (INCL UDES DIFF/ PLT) absolute monocytes 471 cells /uL 200-95 0 normal Not Available [address], [address], 12/28/2023 04:15:00 12/27/1912/28/2023 CBC (INCL UDES DIFF/ PLT) absolute eosinophils 409 cells /uL 15-500 normal Not Available [address], [address], 12/28/2023 04:15:00 12/27/19 24 12/28/2023 CBC (INCL UDES DIFF/ PLT) absolute basophils 50 cells /uL 0-200 normal Not Available [address], [address], 12/28/2023 04:15:00 12/27/19 24 12/28/2023 CBC (INCL UDES DIFF/ PLT) neutrophils 64.4 % normal Not Available [address], [address], 12/28/2023 04:15:00 12/27/19 24 12/28/2023 CBC (INCL UDES DIFF/ PLT) lymphocytes 20.6 % normal Not Available [address], [address], 12/28/2023 04:15:00 12/27/19 24 12/28/2023 CBC (INCL UDES DIFF/ PLT) monocytes 7.6 % normal Not Available [address], [address], 12/28/2023 04:15:00 12/27/19 24 12/28/2023 CBC (INCL UDES DIFF/ PLT) eosinophils 6.6 % normal Not Available [address], [address], 12/28/2023 04:15:00 12/27/19 24 12/28/2023 CBC (INCL UDES DIFF/ PLT) basophils 0.8 % normal Not Available [address] [address], [address], 12/28/2023 04:15:00 12/27/19 24 12/28/2023 T4, FREE T4, free 1.3 NG/dL 0.8-1. 8 normal Not Available [address], [address], 12/28/2023 04:15:01 12/27/19 24 12/28/2023 TSH TSH 0.84 mIU/L 0.40-4 .50 normal Not Available [address], [address], 12/28/2023 04:15:03 12/31/19 24 12/31/2023 COLOG UARD cologuard result reportable NEGATI VE negati ve normal NEGAT GENEVIEVE TEST RESUL T. A negat genevieve Colog uard resul t indic ates a low likel ihood that a color ectal cance r (CRC) or advan clint adeno ma (ishmael omato us polyp s with more advan clint pre-m align ant featu res) is prese nt. The chanc e that a perso n with a negat genevieve Colog uard test has a color ectal cance r is less than 1 in 1500 (nega tive predi ctive value >99.9 %) or has an advan clint adeno ma is less than 5.3% (nega tive predi ctive value 94.7% ). These data are based on a prosp ectiv e cross -sect ional study of ,00 0 indiv idual s at [facility] risk for color ectal cance r who were scree bonny with both Colog uard and colon oscop y. (Bharathi Pritchard et al, N Engl J Med 2014; 370(1 4):12 86-12 97) The mary l value (refe rence range ) for this assay is negat genevieve. COLOG UARD RE-SC REENI NG RECOM MENDA TION: Perio dic color ectal cance r scree caitie is an impor tant part of preve ntive healt hcare for asymp tomat ic indiv idual s at [facility] risk for color ectal cance r. Follo wing a negat genevieve Colog uard resul t, the Ameri can Cance r Socie ty and U.S. Multi -Soci ety Task Force scree caitie guide lines recom mend a Colog uard re-sc reeni ng inter cruz of 3 years . Refer ences : Ameri can Cance r Socie ty Guide line for Color ectal Cance r Scree caitie: https ://niyah w.can cer.o rg/ca ncer/ colon -rect al-ca ncer/ detec tion- diagn osis- stagi ng/ac s-rec ommen datio ns.ht ml.; Kyler QUEVEDO, [place] CR, Domin belkys JK, Color ectal Cance r Scree caitie: Recom menda tions for Physi cians and Patie nts from the U.S. Multi -Soci ety Task Force on Color ectal Cance r Scree caitieGrant caballero y 2017; 112:1 016-1 030. TEST DESCR IPTIO N: [place] 2 site algor ithmi c alhaji sis of stool DNA-b iomar kers with hemog lobin immun oassa y. Quant itati ve value s of indiv idual bioma rkers are not repor table and are not assoc iated with indiv idual bioma rker resul t refer ence range s. Colog uard is inten ded for color ectal cance r scree caitie of adult s of eithe r sex, 45 years or older , who are at [facility] for color ectal cance r (CRC) . Colog uard has been appro jacob for use by the U.S. FDA. The perfo rmanc e of Colog uard was estab lishe d in a cross secti onal study of [facility] adult s aged 50-84 . Colog uard perfo rmanc e in patie nts ages 45 to 49 years was estim ated by missy-g umeshp lahaji sis of near- age group s. Colon oscop ies perfo rmed for a posit genevieve resul t may find as the most clini parisa signi fican t lesio n: color ectal cance r [4.0% ], advan clint adeno ma (incl uding sessi le eliza ligia polyp s great er than or equal to 1cm diame ter) [20%] or non- advan clint adeno ma [31%] ; or no color ectal neopl torey [45%] . These estim ates are deriv ed from a prosp ectiv e cross -sect ional scree caitie study of 10,00 0 indiv idual s at [facility] risk for color ectal cance r who were scree bonny with both Colog uard and colon oscop y. (Bharathi Pritchard et al, N Engl J Med 2014; 370(1 4):12 86-12 97.) Colog uard may produ ce a false negat genevieve or false posit genevieve resul t (no color ectal cance r or preca ncero us polyp prese nt at colon oscop y follo w up). A negat genevieve Colog uard test resul t does not guara ntee the absen ce of CRC or advan clint adeno ma (pre- cance r). The curre nt Colog uard scree caitie inter cruz is every 3 years . (Amer ican Cance r Socie ty and U.S. Multi -Soci ety Task Force ). Colog uard perfo rmanc e data in a 10,00 0 patie nt pivot al study using colon oscop y as the refer ence metho d can be acces sed at the follo wing locat ion: www.e xactl abs.c om/re saleem . Addit ional descr iptio n of the Colog uard test proce ss, warni ngs and preca ution s can be found at www.c ologu gopal.c om. Not Available [facility] (Cologuard Orders Only) [address], [place], [address], 01/09/2024 03:21:14 06/28/19 25 06/29/2024 LIPID PANEL , STAND GOPAL cholesterol, total 195 mg/dL <200 normal Not Available [facility] [address] [address] [place], [address], 06/29/2024 08:14:24 06/28/19 25 06/29/2024 LIPID PANEL , STAND GOPAL HDL cholesterol 61 mg/dL > or = 40 normal Not Available [facility] [address] [address] [place], [address], 06/29/2024 08:14:24 06/28/19 25 06/29/2024 LIPID PANEL , STAND GOPAL triglyceride s 75 mg/dL <150 normal Not Available [facility] [address] [address] [place], [address], 06/29/2024 08:14:24 06/28/19 25 06/29/2024 LIPID PANEL , STAND GOPAL LDL-choleste rol 117 mg/dL _(quintin c) high Refer ence range : <100 Paola able range <100 mg/dL for prima ry preve ntion ; <70 mg/dL for patie nts with CHD or diabe tic patie nts with > or = 2 CHD risk facto rs. LDL-C is now calcu lated using the Unique n-Hop kins calcu osman n, which is a valid ated novel metho d provi ding sekou r accur acy than the Fried krissy equat ion in the estim ation of LDL-C . Unique holman SS et al. MARIANO. 2013; 310(1 9): 2061- 2068 (http ://ed ucati on.Qu [employer]. com/f aq/FA Q164) Not Available [facility] [address] [address] [place], [address], 06/29/2024 08:14:24 06/28/19 25 06/29/2024 LIPID PANEL , STAND GOPAL chol/HDLC ratio 3.2 (calc ) <5.0 normal Not Available [facility] [address] [place], [address], 06/29/2024 08:14:24 06/28/19 25 06/29/2024 LIPID PANEL , STAND GOPAL non HDL cholesterol 134 mg/dL _(quintin c) <130 high For patie nts with diabe mahesh plus 1 major ASCVD risk facto r, treat ing to a non-H DL-C goal of <100 mg/dL (LDL- C of <70 mg/dL ) is consi dered a thera peuti c optio n. Not Available [facility] [address] [place], [address], 06/29/2024 08:14:24 06/28/19 25 06/29/2024 COMPR EHENS GENEVIEVE METAB OLIC PANEL glucose 107 mg/dL 65-99 high Fasti ng refer ence inter cruz For someo ne witho ut known diabe mahesh, a gluco se value betwe en 100 and 125 mg/dL is consi stent with predi abete s and shoul d be confi rmed with a follo w-up test. Not Available [address], [address], 06/29/2024 08:14:26 06/28/19 25 06/29/2024 COMPR EHENS GENEVIEVE METAB OLIC PANEL urea nitrogen (BUN) 15 mg/dL 7-25 normal Not Available [address], [address], 06/29/2024 08:14:26 06/28/19 25 06/29/2024 COMPR EHENS GENEVIEVE METAB OLIC PANEL creatinine 0.88 mg/dL 0.70-1 .28 normal Not Available [address], [address], 06/29/2024 08:14:26 06/28/19 25 06/29/2024 COMPR EHENS GENEVIEVE METAB OLIC PANEL eGFR 89 mL/mi n/1.7 3m2 > or = 60 normal Not Available [address], [address], 06/29/2024 08:14:26 06/28/19 25 06/29/2024 COMPR EHENS GENEVIEVE METAB OLIC PANEL BUN/creatini ne ratio SEE NOTE: (calc ) 6-22 Not Repor ligia: BUN and Creat inine are withi n refer ence range . Not Available [address], [address], 06/29/2024 08:14:26 06/28/19 25 06/29/2024 COMPR EHENS GENEVIEVE METAB OLIC PANEL sodium 142 mmol/ L 135-14 6 normal Not Available [address], [address], 06/29/2024 08:14:26 06/28/19 25 06/29/2024 COMPR EHENS GENEVIEVE METAB OLIC PANEL potassium 4.2 mmol/ L 3.5-5. 3 normal Not Available [address], [address], 06/29/2024 08:14:26 06/28/19 25 06/29/2024 COMPR EHENS GENEVIEVE METAB OLIC PANEL chloride 107 mmol/ L 98-110 normal Not Available [address], [address], 06/29/2024 08:14:26 06/28/19 25 06/29/2024 COMPR EHENS GENEVIEVE METAB OLIC PANEL carbon dioxide 27 mmol/ L 20-32 normal Not Available [address], [address], 06/29/2024 08:14:26 06/28/19 25 06/29/2024 COMPR EHENS GENEVIEVE METAB OLIC PANEL calcium 9.0 mg/dL 8.6-10 .3 normal Not Available [address], [address], 06/29/2024 08:14:26 06/28/19 25 06/29/2024 COMPR EHENS GENEVIEVE METAB OLIC PANEL protein, total 6.6 g/dL 6.1-8. 1 normal Not Available [address], [address], 06/29/2024 08:14:26 06/28/19 25 06/29/2024 COMPR EHENS GENEVIEVE METAB OLIC PANEL albumin 4.1 g/dL 3.6-5. 1 normal Not Available [address], [address], 06/29/2024 08:14:26 06/28/19 25 06/29/2024 COMPR EHENS GENEVIEVE METAB OLIC PANEL globulin 2.5 g/dL_ (calc ) 1.9-3. 7 normal Not Available [address], [address], 06/29/2024 08:14:26 06/28/19 25 06/29/2024 COMPR EHENS GENEVIEVE METAB OLIC PANEL albumin/glob ulin ratio 1.6 (calc ) 1.0-2. 5 normal Not Available [address], [address], 06/29/2024 08:14:26 06/28/19 25 06/29/2024 COMPR EHENS GENEVIEVE METAB OLIC PANEL bilirubin, total 0.5 mg/dL 0.2-1. 2 normal Not Available [address], [address], 06/29/2024 08:14:26 06/28/19 25 06/29/2024 COMPR EHENS GENEVIEVE METAB OLIC PANEL alkaline phosphatase 62 U/L 35-144 normal Not Available [address], [address], 06/29/2024 08:14:26 06/28/19 25 06/29/2024 COMPR EHENS GENEVIEVE METAB OLIC PANEL AST 21 U/L 10-35 normal Not Available [address], [address], 06/29/2024 08:14:26 06/28/19 25 06/29/2024 COMPR EHENS GENEVIEVE METAB OLIC PANEL ALT 16 U/L 9-46 normal Not Available [address], [address], 06/29/2024 08:14:26 06/28/19 25 06/29/2024 CBC (INCL UDES DIFF/ PLT) white blood cell count 6.9 thous and/u L 3.8-10 .8 normal Not Available [address], [address], 06/29/2024 08:14:27 06/28/19 06/29/2024 CBC (INCL UDES DIFF/ PLT) red blood cell count 4.60 abigail on/uL 4.20-5 .80 normal Not Available [address], [address], 06/29/2024 08:14:27 06/28/1906/29/2024 CBC (INCL UDES DIFF/ PLT) hemoglobin 13.5 g/dL 13.2-1 7.1 normal Not Available [address], [address], 06/29/2024 08:14:27 06/28/1906/29/2024 CBC (INCL UDES DIFF/ PLT) hematocrit 43.1 % 38.5-5 0.0 normal Not Available [address], [address], 06/29/2024 08:14:27 06/28/1906/29/2024 CBC (INCL UDES DIFF/ PLT) MCV 93.7 fL 80.0-1 00.0 normal Not Available [address], [address], 06/29/2024 08:14:27 06/28/1906/29/2024 CBC (INCL UDES DIFF/ PLT) MCH 29.3 pg 27.0-3 3.0 normal Not Available [address], [address], 06/29/2024 08:14:27 06/28/1906/29/2024 CBC (INCL UDES DIFF/ PLT) MCHC 31.3 g/dL 32.0-3 6.0 low For adult s, a sligh t decre ase in the calcu lated MCHC value (in the range of 30 to 32 g/dL) is most likel y not clini parisa signi kris t; stefani er, it shoul d be inter prete d with cauti on [place] [facility] [place] with other red cell zac eters and the patie nt's clini quintin condi tion. Not Available [facility] [address], [address], 06/29/2024 08:14:27 06/28/1906/29/2024 CBC (INCL UDES DIFF/ PLT) RDW 12.7 % 11.0-1 5.0 normal Not Available [address], [address], 06/29/2024 08:14:27 06/28/1906/29/2024 CBC (INCL UDES DIFF/ PLT) platelet count 249 thous and/u L 140-40 0 normal Not Available [address], [address], 06/29/2024 08:14:27 06/28/1906/29/2024 CBC (INCL UDES DIFF/ PLT) MPV 10.7 fL 7.5-12 .5 normal Not Available [address], [address], 06/29/2024 08:14:27 06/28/1906/29/2024 CBC (INCL UDES DIFF/ PLT) absolute neutrophils 4533 cells /uL 1500-7 800 normal Not Available [facility] [address], [address], 06/29/2024 08:14:27 06/28/1906/29/2024 CBC (INCL UDES DIFF/ PLT) absolute lymphocytes 1449 cells /uL 850-39 00 normal Not Available [facility] [address], [address], 06/29/2024 08:14:27 06/28/1906/29/2024 CBC (INCL UDES DIFF/ PLT) absolute monocytes 518 cells /uL 200-95 0 normal Not Available [facility] [address], [address], 06/29/2024 08:14:27 06/28/19 25 06/29/2024 CBC (INCL UDES DIFF/ PLT) absolute eosinophils 373 cells /uL 15-500 normal Not Available [facility] [address], [address], 06/29/2024 08:14:27 06/28/19 25 06/29/2024 CBC (INCL UDES DIFF/ PLT) absolute basophils 28 cells /uL 0-200 normal Not Available [facility] [address], [address], 06/29/2024 08:14:27 06/28/19 25 06/29/2024 CBC (INCL UDES DIFF/ PLT) neutrophils 65.7 % normal Not Available [facility] [address], [address], 06/29/2024 08:14:27 06/28/19 25 06/29/2024 CBC (INCL UDES DIFF/ PLT) lymphocytes 21.0 % normal Not Available [facility] [address], [address], 06/29/2024 08:14:27 06/28/19 25 06/29/2024 CBC (INCL UDES DIFF/ PLT) monocytes 7.5 % normal Not Available [facility] [address], [address], 06/29/2024 08:14:27 06/28/19 25 06/29/2024 CBC (INCL UDES DIFF/ PLT) eosinophils 5.4 % normal Not Available [facility] [address], [address], 06/29/2024 08:14:27 06/28/19 25 06/29/2024 CBC (INCL UDES DIFF/ PLT) basophils 0.4 % normal Not Available [facility] [address], [address], 06/29/2024 08:14:27 06/28/19 25 06/29/2024 T4, FREE T4, free 1.4 NG/dL 0.8-1. 8 normal Not Available [facility] [address], [address], 06/29/2024 08:14:28 06/28/19 25 06/29/2024 TSH TSH 0.32 mIU/L 0.40-4 .50 low Not Available [facility] [address], [address], 06/29/2024 08:14:29 06/28/1906/29/2024 PSA, TOTAL PSA, total 3.93 NG/mL < or = 4.00 normal The total PSA value from this assay syste m is stand ardiz ed again st the WHO stand gopal. The test resul t will be appro ximat alec 20% lower when lázaro red to the equim olar- stand ardiz ed total PSA (Johansen man Coult er). Lázaro rison of seria l PSA resul ts shoul d be inter prete d with this fact in mind. This test was perfo rmed using the [employer] chemi lumin escen t metho d. Value s obtai bonny from diffe rent assay metho ds canno t be used inter roth eably . PSA level s, regar dless of value , shoul d not be inter prete d as absol onelia evide nce of the prese nce or absen ce of disea se. Not Available [facility] [address], [address], 06/29/2024 08:14:30 06/28/1906/29/2024 CARDI O IQ(R) LIPOP ROTEI N (A) lipoprotein (A) 147 nmol/ L <75 high Risk: Optim al <75 nmol/ L; Moder ate 75-12 5 nmol/ L; High >125 nmol/ L. Cardi ovasc ular event risk categ ory cut point s (opti mal, moder ate, high) are based on Jacob Kelly. JACC 2017; 69:69 2-711 . Not Available [facility] [address] [address], [place], [address], 06/29/2024 08:14:31 01/07/20 23 01/06/2023 US, doppl er, venou s No observ ation record ed. [email or web address] [facility] [address], [place], [address], 03/24/2023 12:56:54 01/09/20 23 XR, hip + pelvi s, unila teral No observ ation record ed. [email or web address] [facility] [address], [place], [address], 01/08/2023 10:27:07 11/02/19 24 XR, shoul alessandro, 2 or more view [facility] [address] [place] [address] Patien t Name: BO SOLORZANO Access ion #: [id number] Sex: M : 1945 8 Dictat ed By: Venita Pa Attend ing Physic swati: JUSTIN NICOLE CE Orderi Physic swati: JUSTIN NICOLE CE Exam Date: 2023 10:12 AM Exam Name: XR SHOULD ER RT 2V+ Admitt ing Diagno sis(es ): CLINIC AL INDICA TION: pain rt should er TECHNI QUE: 5 radiog raphic views of the right should er were obtain ed. Compar john: None FINDIN GS/IMP RESSIO N: There is no eviden ce of acute fractu re or disloc ation. The visual ized joint space is well mainta ined. The alignm ent is anatom ical. There is no radiop aque foreig n body. Electr onical ly Signed by: Venita Pa at 2023 10:34: 05 AM Page 1 [email or web address] [facility] (Imaging) [address] [place], [address], 11/02/2023 12:39:54 Result Notes Documentation Provider Name and Address Organization Details Recorded Time Xr, Shoulder, 2 Or More View : [facility] [address] [place] [address] Patient Name: BO DOWNEY Sex: M : 1945 Dictated By: Venita Pa Attending Physician: JEM NICOLE Ordering Physician: JEM NICOLE Exam Date: 11/02/2023 10:12 AM Exam Name: XR SHOULDER RT 2V+ Admitting Diagnosis(es): CLINICAL INDICATION: pain rt shoulder TECHNIQUE: 5 radiographic views of the right shoulder were obtained. Comparison: None FINDINGS/IMPRESSION: There is no evidence of acute fracture or dislocation. The visualized joint space is well maintained. The alignment is anatomical. There is no radiopaque foreign body. Page 1 Jem Nicole MD [address] [facility], [facility] [address], [place], [address], [place] [facility] 11/02/2023 12:39:54 Problems Name Problem SNOMED Code Status Onset Date Resolution Date Notes Provider Name and Address Organization Details Recorded Time Acquired hypothyroi dism 433556042 Active Not Available [facility] 3 12:43:10 Hyperchole sterolemia 10514934 Active Not Available [facility] 3 12:43:10 Asthma 770763766 Active Not Available [facility] 3 12:43:10 Hyperthyro idism 94406237 Active Not Available [facility] 3 12:43:10 Umbilical hernia 110307847 Active Not Available [facility] 3 12:43:10 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 Not Available [facility] 3 12:43:10 Cervical radiculopa thy 58715801 Active Not Available [facility] 3 12:43:10 Right bundle branch block 68261053 Active Not Available [facility] 3 12:43:10 Benign prostatic hyperplasi a 020173987 Active 2017 Not Available [facility] 3 12:43:10 Disorder of muscle 368731046 Active 2020 Not Available [facility] 3 12:43:10 Sciatica 30695147 Active 2021 Not Available [facility] 3 12:43:10 Pain in lumbar spine 901473050 Active 2021 Not Available [facility] 3 12:43:10 Pain of left hip joint 1346462736151 00 Active 2021 Not Available [facility] 3 12:43:10 Acute ischemic heart disease 138358460 Active 2021 Not Available [facility] 3 12:43:10 Right bundle branch block 57567597 Active 2021 Not Available [facility] 3 12:43:11 Essential hypertensi on 08568712 Active 2021 Not Available [facility] 3 12:43:11 Osteoarthr itis 803586137 Active 2021 Not Available [facility] 3 12:43:10 Cough 16523671 Active 2022 Not Available [facility] 3 12:43:10 Acute bronchitis 17894649 Active 2022 Not Available [facility] 3 12:43:10 Pneumonia 787801069 Active 2022 Not Available [facility] 3 12:43:10 Spinal stenosis in cervical region 59892587 Active 2022 Not Available [facility] 3 12:43:11 Disorder of prostate 37872589 Active 2022 Jem Nicole MD [address] [place] [address], [address] , [facility] 3 11:54:43 Acquired bilateral pes planus 6691178168742 9109 Active 2022 Kiesha Marx CMA null, [facility] 3 10:12:00 COVID-19 278260157 Active 2023 Jem Nicole MD [address], [place], [address] , [facility] 4 12:42:22 Obese class I 7018114385497 07 Active 2023 Jem Nicole MD [address], [place], [address] , [facility] 4 10:35:57 Pain of right shoulder joint 1319601436176 [address] Active 2023 Yumiko Jung CMA null, [facility] 4 11:48:52 Notes:Some problems listed i n Document: #[id number] could not be added to this patient's chart. Please review this document and add these problems to the patient's chart manually as needed. Problem Notes None recorded. Procedures Surgical History Date Name Laterality Status Provider Name and Address Organization Details Recorded Time 4 Medicare Wellness CPT Code, subsequent completed Sara Downey RN [facility] 12/23/2023 10:55:41 3 Medicare Wellness CPT Code, subsequent completed Sara Downey RN [facility] 06/23/2022 10:38:05 hernia repair completed CRISTAL Rodriguez [facility] 01/08/2023 09:45:53 Imaging Results None recorded. Procedure Notes None recorded. Medical Equipment None Reported. Allergies No known drug allergies Medications Name Sig Start Date Stop Date Status Note LastModified by Organization Details LastModified Time losartan 50 mg tablet TAKE 1 TABLET BY MOUTH ONCE DAILY active Not Available Not Available No t Available amoxicillin 500 mg capsule TAKE FOUR CAPSULES BY MOUTH ONE HOUR BEFORE APPOINTME NT 06/22 completed Not Available Not Available Not Available atorvastati n 20 mg tablet TAKE ONE TABLET BY MOUTH ONCE DAILY 12/20 completed Not Available Not Available Not Available azithromyci n 250 mg tablet TK 2 TS PO ON DAY 1, THEN TK 1 T PO D FOR 4 DAYS 06/23 completed Not Available Not Available Not Available aspirin 325 mg tablet Take 1 tablet every day by oral route. 01/17 completed Not Available Not Available Not Available fluconazole 150 mg tablet TAKE 1 TABLET BY MOUTH EVERY WEEK 12/20 completed Not Available Not Available Not Available benzonatate 200 mg capsule TAKE 1 CAPSULE BY MOUTH THREE TIMES DAILY 06/23 completed Not Available Not Available Not Available acetaminoph en 500 mg tablet TAKE 2 TABLETS BY MOUTH EVERY 6 HOURS. MAX 4000 MG ACETAMINO PHEN TYLENOL PER 24 HOURS 03/06 completed Not Available Not Available Not Available amoxicillin 500 mg tablet take 4tab (2gms) po 1hr prior to dental procedure active Not Available Not Available No t Available cephalexin 500 mg capsule TAKE 4 CAPSULES BY MOUTH ONE HOUR BEFORE SURGERY 12/22 completed Not Available Not Available Not Available tobramycin 0.3 % eye drops INSTILL 1 DROP INTO AFFECTED EYE(S) BY OPHTHALMI C ROUTE EVERY 4 HOURS active Not Available Not Available No t Available levothyroxi ne 150 mcg tablet Take 1 tablet by mouth once daily 2024 active Not Available Not Available Not Avai lable Advair Diskus 250 mcg-50 mcg/dose powder for inhalation Inhale 1 puff twice a day by inhalatio n route. 2012 active Not Available Not Available Not Avai lable montelukast 10 mg tablet TAKE 1 TABLET BY MOUTH EVERY DAY 01/11 completed Not Available Not Available Not Available mupirocin 2 % topical ointment APPLY TOPICALLY TO BOTH NOSTRILS TWICE DAILY FOR 5 DAYS STARTING 01-01-22 active Not Available Not Available No t Available albuterol sulfate HFA 90 mcg/actuati on aerosol inhaler INHALE 2 PUFFS BY MOUTH 4 TIMES DAILY active Not Available Not Available No t Available celecoxib 100 mg capsule TAKE 1 CAPSULE BY MOUTH EVERY DAY 01/19 completed Not Available Not Available Not Available itraconazol e 100 mg capsule Take 2 capsules every day by oral route. 09/17 completed Not Available Not Available Not Available Hibiclens 4 % topical liquid Perform daily total body-wash for 5 days starting 01-01-2201/19 completed Not Available Not Available Not Available amoxicillin 875 mg-potassiu m clavulanate 125 mg tablet TAKE 1 TABLET BY MOUTH TWICE DAILY FOR 10 DAYS 01/21 completed Not Available Not Available Not Available oxycodone 5 mg tablet TAKE 1 TABLET BY MOUTH EVERY 4 HOURS 01/19 completed Not Available Not Available Not Available ezetimibe 10 mg tablet Take 1 tablet by mouth once daily 2024 active Not Available Not Available Not Avai lable Nasacort 12/01 completed Not Available Not Available Not Available Symbicort 160 mcg-4.5 mcg/actuati on HFA aerosol inhaler Inhale 2 puffs by mouth twice daily 2024 active Not Available Not Available Not Avai lable Eliquis 2.5 mg tablet Take by oral route for 34 days. 06/23 completed Not Available Not Available Not Available Stimulant Laxative Plus 8.6 mg-50 mg tablet 01/19 completed Not Available Not Available Not Available fluticasone 113 mcg-salmete rol 14 mcg/actuati on breath activated powdr INHALE 1 PUFF BY MOUTH TWICE DAILY active Not Available Not Available No t Available AirDuo Digihaler 113 mcg-14 mcg/actuati on breath act,powder sensor Inhale 1 puff twice a day by inhalatio n route. 06/22 completed Not Available Not Available Not Available Paxlovid 300 mg (150 mg x 2)-100 mg tablets in a dose pack TAKE 3 TABLETS TOGETHER (TWO 150 MG NIRMATREL VIR TABLETS AND ONE 100 MG RITONAVIR TABLET) BY MOUTH TWICE DAILY FOR 5 DAYS. 06/23 completed Not Available Not Available Not Available Vitals Date Recorded Body height Body mass index (BMI) Body weight Heart rate Body temperature Oxygen saturation Oxygen saturation in Arterial blood by Pulse oximetry Systolic And Diastolic Provider Name and Address Organization Details Last Updated DateTime 5 170.18 cm 32 kg/m2 46482.8 4 g 82 /min 97 [degF] 94 % 94 % 120/78 mm[Hg] Virgen Maxwell [facility] 5 10:32:38 Date Recorded Body height Body mass index (BMI) Body weight Heart rate Body temperature Oxygen saturation Oxygen saturation in Arterial blood by Pulse oximetry Systolic And Diastolic Provider Name and Address Organization Details Last Updated DateTime 4 170.18 cm 32.1 kg/m2 66927.4 4 g 75 /min 97.3 [degF] 97 % 97 % 126/74 mm[Hg] Roxanna Agustin [facility] [employer] [facility] 4 10:17:15 Date Recorded Body height Body mass index (BMI) Body weight Heart rate Body temperature Oxygen saturation Oxygen saturation in Arterial blood by Pulse oximetry Systolic And Diastolic Provider Name and Address Organization Details Last Updated DateTime 3 175.26 cm 30.4 kg/m2 84560.0 3 g 78 /min 97 [degF] 96 % 96 % 122/80 mm[Hg] Virgen Lindsay [facility] [employer] [facility] 3 11:21:08 Date Recorded Body height Body mass index (BMI) Body weight Heart rate Body temperature Oxygen saturation Oxygen saturation in Arterial blood by Pulse oximetry Systolic And Diastolic Provider Name and Address Organization Details Last Updated DateTime 4 170.18 cm 32 kg/m2 83778.8 4 g 69 /min 97 [degF] 95 % 95 % 136/80 mm[Hg] Roxanna Agustin [facility] [employer] [facility] 4 10:48:08 Date Recorded Body height Body mass index (BMI) Body weight Provider Name and Address Organization Details Last Updated DateTime 01/08/2023 170.18 cm 32 kg/m2 31811.84 g Tonia Silveira [facility] [employer] [facility] 01/08/2023 09:49:24 Social History Question Answer Notes LastModified by Organizat ion Details LastModified Time Tobacco Smoking Status Never Smoker Not Available [facility] 04/08/2022 14:45:24 Do You Have An Advance Directive? Yes MIGRATION. Information not available 04/08/2022 Are You Blind Or Do You Have Difficulty Seeing? No MIGRATION.[id number] Information not available 04/08/2022 In The 14 Days Before Symptom Onset, Have You Had Close Contact With A Laboratory-confir med COVID-19 While That Case Was Ill? No MIGRATION. Information not available 04/08/2022 In The 14 Days Before Symptom Onset, Have You Had Close Contact With A Person Who Is Under Investigation For COVID-19 While That Person Was Ill? No MIGRATION. Information not available 04/08/2022 Are You Deaf Or Do You Have Serious Difficulty Hearing? Yes [email or web address] Information not available 12/23/2023 What Type Of Diet Are You Following? REGULAR MIGRATION.[id number] [id number] Information not available 04/08/2022 Have There Been Any Changes To Your Family Or Social Situation? No MIGRATION.39897 00356 Information not available 04/08/2022 What Is The Fluoride Status Of Your Home? Unknown [email or web address] Information not available 06/23/2022 Are There Any Guns Present In Your Home? No MIGRATION.75048 65167 Information not available 04/08/2022 Do You Use Insect Repellent Routinely? No MIGRATION.35671 46768 Information not available 04/08/2022 Where Do You Live? [place]House MIGRATION.92314 14058 Information not available 04/08/2022 Guns Present In The Home? No [email or web address] Information not available 12/23/2023 Are You Able To Care For Yourself? Yes [email or web address] Information not available 06/23/2022 Are You Blind Or Do Yo Have Difficulty Seeing? No [email or web address] Information not available 06/23/2022 Are You Deaf Or Do You Have Serious Difficulty Hearing? No [email or web address] Information not available 06/23/2022 Live Alone Of With Others? With Others [email or web address] Information not available 06/23/2022 Do You Have A Medical Power Of Shirt Closer? Yes MIGRATION.26770 65431 Information not available 04/08/2022 What Was The Date Of Your Most Recent Tobacco Screening? 12/23/2023 Information not available 12/23/2023 Do You Have Any Pets? No MIGRATION.05488 43643 Information not available 04/08/2022 What Is Your Relationship Status? MIGRATION.42998 37559 Information not available 04/08/2022 Do You Use Your Seat Belt Or Car Seat Routinely? Yes MIGRATION.65738 66885 Information not available 04/08/2022 Do You Have Smoke And Carbon Monoxide Detectors In Your Home? Yes MIGRATION.90840 29662 Information not available 04/08/2022 Are You Passively Exposed To Smoke? No MIGRATION.83449 40216 Information not available 04/08/2022 Are There Any Smokers In Your House? No MIGRATION.23276 51224 Information not available 04/08/2022 Do You Use Sunscreen Routinely? No MIGRATION.75269 52740 Information not available 04/08/2022 Have You Recently Traveled Abroad? No MIGRATION.68044 46202 Information not available 04/08/2022 Do You Have Difficulty Walking Or Climbing Stairs? No MIGRATION.22758 54845 Information not available 04/08/2022 Do You Have Any Dietary Restrictions? No MIGRATION.92613 08820 Information not available 04/08/2022 Sex: Male Functional Status Question Answer Note LastModified by Organizat ion Details LastModified Time What is your level of alcohol consumption? Moderate maybe 1 daily Information not available 12/23/2023 Do you have transportation difficulties? No MIGRATION.768953 6265 Information not available 04/08/2022 Are you able to walk? YESWOREST MIGRATION.560801 8793 Information not available 04/08/2022 Do you have difficulty doing errands alone? No MIGRATION.093639 0765 Information not available 04/08/2022 Are you able to care for yourself? Yes MIGRATION.699586 3700 Information not available 04/08/2022 Do you have difficulty dressing or bathing? No MIGRATION.393990 4159 Information not available 04/08/2022 What is your exercise level? Occasional [email or web address] Information not available 06/23/2022 Mental Status Question Answer Note LastModified by Organizat ion Details LastModified Time Do you have difficulty concentrating, remembering or making decisions? No MIGRATION.[id number] 6 Information not available 04/08/2022 Family History Nothing Reported Notes:Mother 59 yea rs old Father 51 years old 1 Brothers from CAD 1 Sisters 1 Living Mother Hx Pulmonary Embolism Father Hx ASHD Medical History Condition Response NERVE DISEASE N BLINDNESS N RHEUMATIC FEVER N KIDNEY STONES N BLADDER PROBLEMS N MRSA N OTHER # 1 N POLIO N LUNG DISEASE/DISORDER N HISTORY OF DRUG ABUSE N COPD N RADIATION / CHEMOTHERAPY N Other # 2 N BLOOD DISEASES N EAR OR HEARING PROBLEMS N MUMPS N SHINGLES N DEPRESSION (INCLUDING POST ) N BOWEL PROBLEMS N STROKE/TIA N ULCERS N BENIGN PROSTATIC HYPERPLASIA N MEASLES N HYPOTENSION N MYOCARDIAL INFARCTION N OBESITY N GERD/NAUSEA N ANEURYSM N URINARY/BLADDER/KIDNEY PROBLEMS N CORONARY ARTERY DISEASE (CAD) N ADDICTION CONCERNS N Impotence N ENDOMETRIOSIS N USE OF BLOOD THINNERS N SKIN PROBLEMS N GASTROINTESTINAL DISORDER N PERIPHERAL VASCULAR DISEASE N MUSCLE,JOINT OR BONE PROBLEMS N GASTROINTESTINAL BLEEDING N BLOOD CLOTS N ASTHMA Y CATARACTS N ERECTILE DYSFUNCTION N VARICOSITIES N GI PROBLEMS N Low Testosterone N INFERTILITY N AIDS/HIV N CHEMOTHERAPY / RADIATION N LIVER DISEASE N MALE HYPOGONADISM N HYPERTENSION N Deficiency N TOURETTE'S N ANXIETY DISORDER N BLOOD TRANSFUSION N ANEMIA/BLOOD DISORDER N CHRONIC EAR INFECTIONS N BRONCHITIS N TUBERCULOSIS N GLAUCOMA N FOOT PROBLEM N DIVERTICULITIS N SLEEP APNEA N CHICKENPOX N INFECTIOUS DISEASE N PROSTATE N HEART ARRHYTHMIA N INSOMNIA N HIGH CHOLESTEROL / HYPERLIPIDEMIA Y EYE PROBLEMS N HYPERTHYROIDISM Y EDEMA N CHRONIC PAIN SYNDROME N HYPOTHYROIDISM Y CAROTID BLOCKAGE N CONSTIPATION N BACK / NECK PROBLEMS N HAVE YOU BEEN HOSPITALIZED OR SEEN IN [facility] IN THE PAST YEAR ? N ATHEROSCLEROSIS N BREAST PROBLEMS N DIALYSIS N ECZEMA N OSTEOPOROSIS N ARTHRITIS Y NO SIGNIFICANT PAST MEDICAL HISTORY N APPENDICITIS N DIABETES, TYPE N BAD TEETH N ENT N HEARTBURN / REFLUX N AUTISM SPECTRUM DISORDER (ASD) N HEPATITIS / LIVER DISEASE N GOUT N SLEEP DISORDER N ALZHEIMER'S DISEASE N Brain Problems N DEMENTIA N HERPES N SEIZURES/EPILEPSY N HEADACHES/MIGRAINES N VASCULAR DISEASE N PACEMAKER N Blood Disorder N DIZZINESS N HEART DISEASE/HEART PROBLEMS Y KIDNEY DISEASE N MULTIPLE SCLEROSIS N CANCER: SPECIFY N CARDIAC ARRHYTHMIA N ATRIAL FIBRILLATION N Gall Stones N PULMONARY EMBOLISM N AUTOIMMUNE DISEASE N Immunizations Vaccine Type Date Status Note Provider Nam e and Address Organization Details Recorded Time SARS-COV-2 (COVID-19) vaccine, UNSPECIFIED 3 completed Virgen Musea [employer] [facility] 07/03/2022 16:12:40 influenza, unspecified formulation 3 completed Virgen Slecka [employer] [facility] 12/17/2022 16:22:07 SARS-COV-2 (COVID-19) vaccine, UNSPECIFIED 3 completed Virgen Slecka null [employer] [facility] [employer] [facility] 12/22/2022 11:23:10 influenza, unspecified formulation 3 completed Virgen Seracka [employer] [facility] 12/22/2022 11:23:44 Influenza, split virus, trivalent, preservative 3 completed Not Available [facility] 04/08/2022 14:51:31 zoster live 3 completed Not Available [facility] 04/08/2022 14:51:31 Influenza, high-dose, trivalent, PF 6 completed Not Available [facility] 04/08/2022 14:51:31 DTaP 3 completed Not Available [facility] 04/08/2022 14:51:31 COVID-19, mRNA, LNP-S, PF, 100 mcg/0.5mL dose or 50 mcg/0.25mL dose 2 completed Not Available [facility] 04/08/2022 14:51:31 Influenza, high-dose, trivalent, PF 7 completed Not Available [facility] 04/08/2022 14:51:31 Influenza, high-dose, trivalent, PF 2 completed Not Available [facility] 04/08/2022 14:51:31 Influenza, split virus, quadrivalent, preservative 2 completed Not Available [facility] 04/08/2022 14:51:31 COVID-19, mRNA, LNP-S, PF, 100 mcg/0.5mL dose or 50 mcg/0.25mL dose 1 completed Not Available [facility] 04/08/2022 14:51:31 SARS-COV-2 (COVID-19) vaccine, UNSPECIFIED 1 completed Not Available [facility] 04/08/2022 14:51:32 SARS-COV-2 (COVID-19) vaccine, UNSPECIFIED 1 completed Not Available [facility] 04/08/2022 14:51:32 Influenza, split virus, quadrivalent, preservative 0 completed Not Available [facility] 04/08/2022 14:51:32 Influenza, high-dose, trivalent, PF 4 completed Not Available [facility] 04/08/2022 14:51:32 Past Encounters Encounter ID Performer Location Encounter Start Date Encounter Closed Date Diagnosis/Indication Diagnosis SNOMED-CT Code Diagnosis ICD10 Code Diagnosis Note [id number] Jem Nicole MD [facility] Internal Med [place] [address] [facility] , [facility] [place] [address] 06/07/2020 00:00:00 06/07/2020 11:42:34 [id number] Jem [facility] [address] [place] [address] [place] [address] 12/20/2020 00:00:00 12/20/2020 12:10:32 [id number] MD MARCUS [facility] [address] [place] [address] [place] [address] 01/21/2021 00:00:00 01/21/2021 11:16:54 [id number] Pollo Martinez MD [facility] [place] [address] [place] [address] 11/05/2021 00:00:00 11/13/2021 07:54:27 [id number] MD EUGENE [facility] [address] [place] [address] [place] [address] 12/23/2021 00:00:00 12/23/2021 10:54:13 [id number] Pollo Martinez MD [facility] [place] [address] [place] [address] 12/24/2021 00:00:00 2021 09:10:16 [id number] Pollo Martinez MD [facility] [place] [address] [place] [address] 01/19/2022 00:00:00 01/19/2022 14:42:42 [id number] Pollo Martinez MD [facility] [place] [address] [place] [address] 02/04/2022 00:00:00 02/04/2022 11:15:40 [id number] Pollo Martinez MD [facility] [place] [address] [place] [address] 03/06/2022 00:00:00 03/06/2022 09:29:06 [id number] Jem Nicole MD [facility] Internal Med [facility] [address] [address] 03/18/2022 00:00:00 03/18/2022 11:11:37 [id number] Jem Nicole MD [facility] Internal Med [facility] [address] [place] [address] [address] 05/13/2022 14:20:04 05/13/2022 14:41:21 Acute bronchitis 70540728 J20.9 [id number] Jem Nicole MD [facility] Internal Med [place] [address] [facility] [place] [address] 06/23/2022 10:32:13 06/23/2022 11:14:28 Adult health examination 166091192 Z00.00 Screening for disorder 335985999 Z13.9 Asthma 372274296 J45.90 9 Essential hypertension 00151308 I10 Hypercholesterolemia 136 38571 E78.00 Cervical radiculopathy 62327876 M54.12 [id number] Jem Nicole MD [facility] [address] [facility] [place] [address] 12/22/2022 10:44:18 12/22/2022 12:00:37 Essential hypertension 20337303 I10 Hypercholesterolemia 136 43757 E78.00 Asthma 359770983 J45.90 9 Spinal nir nosis in cervical region 43108087 M48.02 Disorder of prostate 302 27584 N42.9 [id number] Pollo Martinez MD [facility] [place] [address] [place] [address] 01/08/2023 09:26:30 01/08/2023 10:31:52 History of total replacement of left hip joint 1441702054 179334 Z96.070 [id number] Jem Nicole MD [facility] Internal Med [facility] [address] [place] [address] [address] 06/24/2023 10:06:59 06/24/2023 10:42:01 Acquired hypothyroidism 920126259 E03.9 Cervical radiculopathy 92530072 M54.12 Essential hypertension 60988864 I10 Asthma 157227776 J45.90 9 Hypercholesterolemia 136 62448 E78.00 Obese class I 2315970406 13504 E66.9 [id number] Jem Nicole MD [facility] Internal Med [facility] [address] [facility] [place] [address] 12/23/2023 10:23:04 12/23/2023 11:19:17 Adult health examination 760689555 Z00.00 Screening for disorder 525451431 Z13.9 Asthma 717076482 J45.90 9 Essential hypertension 24270838 I10 Hypercholesterolemia 136 20981 E78.00 Acquired hypothyroidism 757670112 E03.9 [id number] Jem Nicole MD [facility] Internal Med [facility] 24 [address] [facility] [address] [place] [address] 06/22/2024 10:30:13 06/22/2024 11:01:47 Acquired hypothyroidism 461898107 E03.9 Essential hypertension 49579207 I10 Hypercholesterolemia 136 76838 E78.00 Asthma 817146714 J45.90 9 Disorder of prostate 302 72693 N42.9 Health Concerns Section Related Observation LastModified by Organization Detai ls LastModified Time None Recorded Concern Status LastModified by Organization Details LastModified Time None Recorded Advance Directives Directive Y: Payers Insurance Date Sequence Insurance Name Policy Number Policy Flores Covered Member ID Flores Member ID Guarantor Name 06/22/2024 1 [place] Bo Downey [id number] Bo Downey 06/22/2024 2 [place] [id number] Bo Downey [id number] Bo Downey 06/22/2024 [employer] - DMEPOS ASSIGNED (MEDICARE DME REGION B) Bo Downey [id number] Bo Downey Notes Date Note Type Note Provider Name and Address Organization Details Recorded Time 12/23/19 23 text/htm l Patient Name: Bo DowneyDate Of Service: Wednesday ( 12.22.2022 ): 1945 Age: 76 There has been approximately a 9 lb weight gain since 06/23/2022. This represents approximately a 4.6% change in weight. Weight change attributable to lifestyle changes. Vital Signs:Blood Pressure: Sitting Rt. Arm 122/80Pulse: Sitting 78 /min and RegularRespiratory Rate: 12Height 69 in or 1.8 mWeight 206 lb or 93.4 kgBMI 30.4Temperature: 97 F or 36.1 CPulse Oximetry: 96 % at rest on no oxygen Chief Complaint: Addressed in HPI Problems or conditions discussed in the HPI were the only ones reviewed during the encounter.Only social and family history addressed in the HPI were reviewed during this encounter. Attendant(s): NoneConstitutional and Systemic Symptoms:none Medication Reconciliation: from medication list. Zvotbrztbrf22/10/2022 echocardiogram and PFTs: PFTs demonstrate some very mild chronic obstructive pulmonary disease not responsive to bronchodilators. Significantly improved since the test performed in 2019. Echocardiogram showed normal left ventricular function. There was some slight increase in the right ventricular cavity size possibly related to his underlying mild chronic obstructive lung disease. No evidence of any pulmonary dfttynetfefs53/23/2023: MRI of the cervical spine without contrast demonstrated advanced degenerative joint disease with moderate spinal stenosis at C3-C4 -qlvt-vb-azwlemaa spinal stenosis at C5-C6 and C6-C7 -mild spinal stenosis at C4-C5. There is mass effect on the cervical cord at C3-C4 C5-C6 and C6-C7. Multiple level of neural foraminal stenosis are noted. Recommend neurosurgical consult at least to see if anything further should be done at this time. History of Present Illness #1. Essential Hypertension: Stage: Stage I Interval Neurological Complaints no headaches, dizziness, weakness, visual changes, ataxia, aphasia and apraxia. No shortness of breath, orthopnea or cardiovascular symptoms. No other symptoms related to end organ damage. Pressure has been under excellent control. Currently normal. No other end organ symptoms or findings. Therapy reviewed regarding management of hypertension and includes salt restriction and Losartan Potassium. #2. Type II Hypercholesterolaemia: Currently not taking medication. No interval complaints of any muscle pain or arthralgia. No significant liver changes with medications. Last lipid panel: fair control. Therapy reviewed regarding treatment of cholesterol management and include diet and Zetia. #3. Hx of asthma. Daily medications: Airduo Digihaler and Proventil-hfa. Uses bronchodilators very infrequently. Night time exacerbations: 3-4 times monthly There has been no cough, congestion, or sputum production. No changes in exercise tolerance. Denies any fever or chills. Tolerating the medications without problems. The current status could be classified as mild persistent asthma. Using nebulizer Treatments: No. #4. History of cervical spinal stenosis. Is being followed on a regular basis by Neurosurgery. This point they are using physical therapy and pain management to control much of the symptomatology. Has had some problems recently with pain and discomfort down the right leg. This usually occurs with ambulation. Does not sound like claudication as a result of vascular since his good peripheral pulses noted more likely possibly curb represent neurogenic claudication. Is scheduled to see Orthopedics later in the week. Will wait and see what they have to say as far as any further evaluation for vascular etiologies.:Medication List Reviewed and Reconciled 12/22/2022Synthroid 0.15 MG (TABLET - ORAL) One Daily For ThyroidZetia 10 MG (TABLET - ORAL) Once DailyProventil-hfa 0.09 MG /INH Two Puffs Qid Prn For WheezingAirduo Digihaler 113; 14 UG; UG POWDER, METERED One Inhalation BidLosartan Potassium 50 MG TABLET One DailyVaccination and Atswcrvogvne2329-97 Vbnoqwupg5580-01 Covid Booster Bjqxncp7567-03 Covid Qlrjaus1730-32 Zsorpdiil9148-64 Prevnar 13 Ll3880-49 DtapSurgical HistoryLeft NYDIA, Bilateral CTS, Ventral Hernia Repair, Squamous Cell Left Ear, TonsillectomyPreventative Testing Confirmed by Our Kdrmosz4107/02/2022 ALBUMIN 3.9 G/DL N103/30/2021 PSA 3.16 NG/ML N103/12/2013 COLONOSCOPY (10 YEARS) 01/10/2024Social HistorySmoking Hx: Does not smoke cigarettes. Also smokes PipeDrinking Hx: < 6 beers per week, 3 Cups of coffee per day, <6 cans of soft drinks per day.Exercise: WeeklySexual Hx: Sexually ActiveOccupation: Health careFamily HistoryMother 59 years oldFather 51 years old1 Brothers from CAD1 Sisters 1 LivingMother Hx: Pulmonary EmbolismFather Hx: ROSETTA Nicole MD [address] [facility], [facility] [address], [place], [address], [place] [facility] 12/22/2022 11:55:36 06/24/19 24 text/htm l Patient Name: Bo DowneyDate Of Service: June ( 06.24.2023 ): 1945 Age: 77 Vital Signs:Blood Pressure: Sitting Rt. Arm 126/74Pulse: Sitting 75 /min and RegularRespiratory Rate: 12Height 67 in or 1.7 mWeight 205 lb or 93.0 kgBMI 32.1Temperature: 97.3 F or 36.3 CPulse Oximetry: 97 % at rest on no oxygen Chief Complaint: Addressed in HPI Problems or conditions discussed in the HPI were the only ones reviewed during the encounter.Only social and family history addressed in the HPI were reviewed during this encounter. Attendant(s): NoneConstitutional and Systemic Symptoms:none Medication Reconciliation: from medication list. Zmxompuovzb26/10/2022 echocardiogram and PFTs: PFTs demonstrate some very mild chronic obstructive pulmonary disease not responsive to bronchodilators. Significantly improved since the test performed in 2019. Echocardiogram showed normal left ventricular function. There was some slight increase in the right ventricular cavity size possibly related to his underlying mild chronic obstructive lung disease. No evidence of any pulmonary hypertension 06/30/2022: MRI of the cervical spine without contrast demonstrated advanced degenerative joint disease with moderate spinal stenosis at C3-C4 -epzn-ku-nszgycxi spinal stenosis at C5-C6 and C6-C7 -mild spinal stenosis at C4-C5. There is mass effect on the cervical cord at C3-C4 C5-C6 and C6-C7. Multiple level of neural foraminal stenosis are noted. Recommend neurosurgical consult at least to see if anything further should be done at this time. History of Present Illness #1. Essential Hypertension: Stage: Stage I Interval Neurological Complaints no headaches, dizziness, weakness, visual changes, ataxia, aphasia and apraxia. No shortness of breath, orthopnea or cardiovascular symptoms. No other symptoms related to end organ damage. Pressure has been under excellent control. Currently normal. No other end organ symptoms or findings. Therapy reviewed regarding management of hypertension and includes salt restriction and Losartan Potassium. #2. Type II Hypercholesterolaemia: Currently taking medication and tolerating well. No interval complaints of any muscle pain or arthralgia. No significant liver changes with medications. Last lipid panel: fair control. Therapy reviewed regarding treatment of cholesterol management and include cannot tolerate statins or related agents and Zetia. #3. Hx of hypothyroidism currently stable. Heat intolerance: no Fatigue: no Weight gain: no Difficulty concentrating: no Muscle Symptoms: none Skin Texture: normal Skin Color: normal Currently taking synthroid. #4. Hx of asthma. Daily medications: Airduo Digihaler and Proventil-hfa. Uses bronchodilators several times per month. Night time exacerbations: 3-4 times monthly There has been no cough, congestion, or sputum production. No changes in exercise tolerance. Denies any fever or chills. Tolerating the medications without problems. The current status could be classified as mild persistent asthma. Using nebulizer Treatments: No. #5. Cervical Radiculopathy: Hx of a cervical pain on both sides. There is radiation of the pain both arms. There is no decrease in muscle strength. There has been some improvement since last examination. There is no numbness, tingling, weakness and balance problems associated with the problem. Has been taking Motrin. Has been taking no physical therapy. #6. Hx of obesity. Currently Class 1 Obesity BMI 30-34.99. Has tried numerous dietary support and supplements with no benefit. Instructed on the health consequences of the obese status particularly cancer - diabetes and heart disease. Discussed new modalities of weight loss including GLP-1 medications that are used to treat diabetes. Potential candidate for bariatric surgery: Yes. Wishes to be evaluated by Dietary: Yes. Active Medication ListSynthroid 0.15 MG (TABLET - ORAL) One Daily For ThyroidZetia 10 MG (TABLET - ORAL) Once DailyProventil-hfa 0.09 MG /INH Two Puffs Qid Prn For WheezingAirduo Digihaler 113; 14 UG; UG POWDER, METERED One Inhalation BidLosartan Potassium 50 MG TABLET One Daily Vaccination and Uomucjzitlga3314-31 Cvatwclee3956-96 Covid Booster Rxcdomz8607-95 Covid Ddygcwf4297-64 Ccnvtuduc0523-74 Prevnar 13 Cz5198-37 Dtap Surgical Kujjkxm5156-36 Left AHV1748-04 Bilateral WOL5831-22 Ventral Hernia Skkrgi8006-67 Squamous Cell Left Tcx1376-96 Tonsillectomy Preventative Fafwebg9501/28/2023 ALBUMIN 4.3 G/DL N103/31/2022 PSA 2.92 NG/ML01/09/2014 COLONOSCOPY (10 YEARS) 01/10/2024 Social HistorySmoking Hx: Does not smoke cigarettes. Also smokes PipeDrinking Hx: < 6 beers per week, 3 Cups of coffee per day, <6 cans of soft drinks per day.Exercise: WeeklySexual Hx: Sexually ActiveOccupation: Health care Family HistoryMother 59 years oldFather 51 years old1 Brothers from CAD1 Sisters 1 LivingMother Hx: Pulmonary EmbolismFather Hx: ROSETTA Nicole MD [address] [place] [address], [place] [address], [place], [address], [place] - [facility] [employer] 06/24/2023 10:39:22 12/23/19 24 text/htm l Patient Name: Bo Costarivera Of Service: December ( 12.23.2023 ): 1945 Age: 77 Vital Signs:Blood Pressure: Sitting Rt. Arm 136/80Pulse: Sitting 69 /min and RegularRespiratory Rate: 16Height 67 in or 1.7 mWeight 204 lb or 92.5 kgBMI 31.9Temperature: 97 F or 36.1 CPulse Oximetry: 95 % at rest on no oxygen Chief Complaint: Addressed in HPI Problems or conditions discussed in the HPI were the only ones reviewed during the encounter.Only social and family history addressed in the HPI were reviewed during this encounter. A significant, separate E/M service was performed to evaluate the current and new problems. Attendant(s): NoneConstitutional and Systemic Symptoms:none Medication Reconciliation: from medication list. Nhlyshsdzpj36/23/2023: MRI of the cervical spine without contrast demonstrated advanced degenerative joint disease with moderate spinal stenosis at C3-C4 -injv-ha-akrdeqwk spinal stenosis at C5-C6 and C6-C7 -mild spinal stenosis at C4-C5. There is mass effect on the cervical cord at C3-C4 C5-C6 and C6-C7. Multiple level of neural foraminal stenosis are noted. Recommend neurosurgical consult at least to see if anything further should be done at this time. History of Present Illness Reviewed the findings of the preventative health visit. Addressed all areas with the patient, patient's family or caregivers. Preventative examinations and testing immunizations - vaccinations, colonic neoplasm screening and PSA all reviewed and ordered where patient was amenable to the recommendations. Cognitive function was normal. Depression addressed and where necessary medications were adjusted or instituted. End of life and living will briefly discussed with patient and where these can be filled out and legally executed. Other blood and imaging studies were ordered if considered necessary. Other recommendations may be found in the encounter note. #1. Essential Hypertension: Stage: Stage I Interval Neurological Complaints no headaches, headaches, dizziness, weakness, visual changes, ataxia, aphasia and apraxia. No shortness of breath, orthopnea or cardiovascular symptoms. No other symptoms related to end organ damage. Pressure has been under excellent control. Currently normal. No other end organ symptoms or findings. Therapy reviewed regarding management of hypertension and includes salt restriction and Losartan Potassium. #2. Type II Hypercholesterolaemia: Currently taking medication and tolerating well. No interval complaints of any muscle pain or arthralgia. No significant liver changes with medications. Last lipid panel: suboptimal by ATP III guidelines. Therapy reviewed regarding treatment of cholesterol management and include diet and Zetia. #3. Hx of hypothyroidism currently stable. Heat intolerance: no Fatigue: no Weight gain: no Difficulty concentrating: no Muscle Symptoms: none Skin Texture: normal Skin Color: normal Currently taking synthroid. #4. Hx of asthma. Daily medications: Airduo Digihaler and Proventil-hfa. Uses bronchodilators several times per month. Night time exacerbations: 3-4 times monthly There has been no cough, congestion, or sputum production. No changes in exercise tolerance. Denies any fever or chills. Tolerating the medications without problems. The current status could be classified as mild persistent asthma. Using nebulizer Treatments: No. #5. Hx of obesity. Currently Class 1 Obesity BMI 30-34.99. Has tried numerous dietary support and supplements with no benefit. Instructed on the health consequences of the obese status particularly cancer - diabetes and heart disease. Discussed other modalities of weight loss no . Potential candidate for bariatric surgery: No. Wishes to be evaluated by Dietary: No and was offered to be evaluated and instructed by brush clearer surveying on weight loss diet. Active Medication ListSynthroid 0.15 MG (TABLET - ORAL) One Daily For ThyroidZetia 10 MG (TABLET - ORAL) Once DailyProventil-hfa 0.09 MG /INH Two Puffs Qid Prn For WheezingAirduo Digihaler 113; 14 UG; UG POWDER, METERED One Inhalation BidLosartan Potassium 50 MG TABLET One Daily Vaccination and Immunization( ) 2012-09 DTAP( ) 2023-12 INFLUENZA( ) 2014-11 PREVNAR 13 GC(X) 2015-11 PNEUMOVAX PREVNAR 20 Needed( ) 2020-11 COVID MODERNA( ) 2023-12 COVID BOOSTER MODERNA Surgical Uyhfcxg5302-57 Left DVU2932-51 Bilateral ZUH7492-25 Ventral Hernia Hramfv5947-01 Squamous Cell Left Osf1948-87 Tonsillectomy Preventative Testing( ) 01/28/2023 Albumin 4.3 G/DL N( ) 01/28/2023 PSA 2.92 NG/ML 01/28/2025( ) 01/09/2014 Colonoscopy (10 Years) 01/10/2024 Social HistorySmoking Hx: Does not smoke cigarettes. Also smokes PipeDrinking Hx: < 6 beers per week, 3 Cups of coffee per day, <6 cans of soft drinks per day.Exercise: WeeklySexual Hx: Sexually ActiveOccupation: Health care Family HistoryMother 59 years oldFather 51 years old1 Brothers from CAD1 Sisters 1 LivingMother Hx: Pulmonary EmbolismFather Hx: ASHD TEST RESULT RANGE UNITSCOMPREHENSIVE METABOLIC PANEL Date: 01/28/2023SODIUM 140 135-146 MMOL/LPOTASSIUM 4.3 3.5-5.3 MMOL/LGLUCOSE 105 65-99 MG/DLUREA NITROGEN (BUN) 15 7-25 MG/DLCREATININE 0.90 0.70-1.28 MG/DLEGFR 89 > OR = 60 ML/MIN/1.64S1DNOJO PANEL, STANDARD Date: 3CHOLESTEROL, TOTAL 209 <200 MG/DLHDL CHOLESTEROL 65 > OR = 40 MG/DLTRIGLYCERIDES 90 <150 MG/DLLDL-CHOLESTEROL 125 MG/DL (CALC)PSA, POST-PROSTATECTOMY Date: 3PSA, ICMA 2.92 NG/ML Jem Nicole MD [address] [facility], [address], [place], [address], [place] [facility] 12/23/2023 11:11:31 06/23/19 25 text/htm l Patient Name: Bo Page Of Service: June ( 06.22.2024 ): 1945 Age: 78 Vital Signs:Blood Pressure: Sitting Rt. Arm 120/78Pulse: Sitting 82 /min and RegularRespiratory Rate: 16Height 67 in or 1.7 mWeight 204 lb or 92.5 kgBMI 31.9Temperature: 97 F or 36.1 CPulse Oximetry: 94 % at rest on no oxygen Chief Complaint: Addressed in HPI Problems or conditions discussed in the HPI were the only ones reviewed during the encounter.Only social and family history addressed in the HPI were reviewed during this encounter. Attendant(s): NoneConstitutional and Systemic Symptoms:none Medication Reconciliation: from medication list. Kghyjgckyhk15/23/2023: MRI of the cervical spine without contrast demonstrated advanced degenerative joint disease with moderate spinal stenosis at C3-C4 -filz-tw-kuqfxceb spinal stenosis at C5-C6 and C6-C7 -mild spinal stenosis at C4-C5. There is mass effect on the cervical cord at C3-C4 C5-C6 and C6-C7. Multiple level of neural foraminal stenosis are noted. Recommend neurosurgical consult at least to see if anything further should be done at this time. History of Present Illness #1. Essential Hypertension: Stage: Stage I Interval Neurological Complaints no headaches, dizziness, weakness, visual changes, ataxia, aphasia and apraxia. No shortness of breath, orthopnea or cardiovascular symptoms. No other symptoms related to end organ damage. Pressure has been under excellent control. Currently normal. No other end organ symptoms or findings. Therapy reviewed regarding management of hypertension and includes salt restriction and Losartan Potassium. #2. Type II Hypercholesterolaemia: Currently taking medication and tolerating well. No interval complaints of any muscle pain or arthralgia. No significant liver changes with medications. Last lipid panel: fair control. Therapy reviewed regarding treatment of cholesterol management and include diet and Zetia. #3. Hx of hypothyroidism currently stable. Heat intolerance: no Fatigue: no Weight gain: no Difficulty concentrating: no Muscle Symptoms: none Skin Texture: normal Skin Color: normal Currently taking synthroid. #4. Hx of asthma. Daily medications: Symbicort. Uses bronchodilators very infrequently. Night time exacerbations: 3-4 times monthly There has been no cough, congestion, or sputum production. No changes in exercise tolerance. Denies any fever or chills. Tolerating the medications without problems. The current status could be classified as mild persistent asthma. Using nebulizer Treatments: No. Active Medication ListSynthroid 0.15 MG (TABLET - ORAL) One Daily For ThyroidZetia 10 MG (TABLET - ORAL) Once DailyProventil-hfa 0.09 MG /INH Two Puffs Qid Prn For WheezingLosartan Potassium 50 MG TABLET One DailySymbicort 160; 4.5 UG; UG AEROSOL Inhale 2 Puff Twice A Day Vaccination and ImmunizationImmunizations and Vaccinations Discussed and Implemented if feasible In the Office. Else referred to pharmacies. ( ) 2012-09 DTAP( ) 2023-12 INFLUENZA( ) 2014-11 PREVNAR 13 GC(X) 2015-11 PNEUMOVAX PREVNAR 20 Needed( ) 2020-11 COVID MODERNA( ) 2023-12 COVID BOOSTER MODERNA Surgical Owofoqk4316-33 Left NRX4425-81 Bilateral HFA9820-12 Ventral Hernia Vvjogp0938-63 Squamous Cell Left Hjs8920-91 Tonsillectomy Preventative TestingPreventative Testing Discussed and Scheduled if Acceptable to Patient ( ) 12/31/2023 Cologuard 12/30/2026( ) 12/27/2023 Albumin 4.0 G/DL N( ) 01/28/2023 PSA 2.92 NG/ML 01/28/2025 Social HistorySmoking Hx: Does not smoke cigarettes. Also smokes PipeDrinking Hx: < 6 beers per week, 3 Cups of coffee per day, <6 cans of soft drinks per day.Exercise: WeeklySexual Hx: Sexually ActiveOccupation: Health care Family HistoryMother 59 years oldFather 51 years old1 Brothers from CAD1 Sisters 1 LivingMother Hx: Pulmonary EmbolismFather Hx: ASHD TEST RESULT RANGE UNITSCBC (INCLUDES DIFF/PLT) Date: 12/27/2023WHITE BLOOD CELL COUNT 6.2 3.8-10.8 THOUSAND/ULHEMOGLOBIN 13.9 13.2-17.1 G/DLHEMATOCRIT 42.8 38.5-50.0 %PLATELET COUNT 261 140-400 THOUSAND/ULCOMPREHENSIVE METABOLIC PANEL Date: 12/27/2023SODIUM 140 135-146 MMOL/LPOTASSIUM 4.6 3.5-5.3 MMOL/LGLUCOSE 107 65-99 MG/DLUREA NITROGEN (BUN) 17 7-25 MG/DLCREATININE 0.88 0.70-1.28 MG/DLEGFR 89 > OR = 60 ML/MIN/1.75I6DXICMGDCX, TOTAL 0.5 0.2-1.2 MG/DLALKALINE PHOSPHATASE 58 35-144 U/LAST 23 10-35 U/LALT 16 9-46 U/LLIPID PANEL, STANDARD Date: 4CHOLESTEROL, TOTAL 192 <200 MG/DLHDL CHOLESTEROL 60 > OR = 40 MG/DLTRIGLYCERIDES 80 <150 MG/DLLDL-CHOLESTEROL 115 MG/DL (CALC)T4, FREE Date: 12/27/2023T4, FREE 1.3 0.8-1.8 NG/DLTSH Date: 12/27/2023TSH 0.84 0.40-4.50 MIU/L Jem Nicole MD [address] [facility], [facility] [address], [place], [address], [facility] 06/22/2024 10:53:25
--- OUTSIDE RECORDS SUMMARY | 2024-08-26 09:55 | XMS_ITS | Encounter Summary ---
Author Organization [facility] Address [address] [place] [address] Care Team Providers Care Coremaker Supervisor Name Role Phone Unavailable Primary Care Provider Unavailabl e Encounter Details Date Type Department Care Team (Late st Contact Info) Description 04/09/2022 Lab Requisition [facility] [address] [facility], [place] [id number] Naveed Borges MD [address] [place] [address] Social History Tobacco Use Types Packs/Day Years [...] Priority Date/Time Associated Diagnosis Comments DERMATOPATHOLOGY Routine 04/08/2022 3:33 AM APPLICATION SECURITY SPECIALIST documented in this encounter Results * DERMATOPATHOLOGY (04/08/2022 3:33 AM APPLICATION SECURITY SPECIALIST) Case Report Dermatopathology Report Case: [id number] Authorizing Provider: Naveed Borges MD Collected: 04/08/2022 03:33 AM Ordering Location: [facility] Received: 04/09/2022 02:13 PM Pathologist: Linh Lipscomb MD Specimen: Skin, neck - behind right earlobe 3 4:41 PM APPLICATION SECURITY SPECIALIST DERMATOPATHOLOGY LABORATORY Final Diagnosis Specimen A. 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 Please Check Margins. 3 4:41 PM [facility] DERMATOPATHOLOGY LABORATORY Gross Description Specimen A: Received is one formalin filled container labeled with the patients name and designated neck - behind right earlobe. The specimen consists of a shave removal measuring 43y53q5my and it is inked. Jar 0. 3 4:41 PM [facility] DERMATOPATHOLOGY LABORATORY Microscopic Description Specimen A. SKIN, neck - behind right earlobe: The epidermis shows parakeratosis, full thickness disorderly maturation of keratinocytes, mitoses at different levels, and dyskeratotic cells. This lesion is not present at the sampled margin of the specimen. 3 4:41 PM [facility] DERMATOPATHOLOGY LABORATORY Disclaimer An external and internal positive and negative controls are appropriate for the histochemical, immunohistochemical and immunofluorescence stain(s) in this case (if any), except where stated explicitly. The performance characteristics of the stain(s) cited in this report were developed and its performance characteristic determined by the Dermatopathology Laboratory at [facility], directed by Dr. Rosey Lipscomb. These tests need not be, and therefore are not, approved by the [place] Food and Drug Administration. The tests are used for clinical purposes. Billing Codes Specimen Charges Stain Charges 08822 1 3 4:41 PM [facility] DERMATOPATHOLOGY LABORATORY Embedded Images 3 4:41 PM [facility] DERMATOPATHOLOGY LABORATORY Pathology/Cytolo gy TISSUE SPECIMEN FROM SKIN / Unknown 04/08/2022 3:33 AM APPLICATION SECURITY SPECIALIST 04/09/2022 2:13 PM [facility] Naveed Borges MD LAB - PATHOLOGY/CYTOLOGY ORD ERABLES Final Result DERMATOPATHOLOGY LABORATORY [facility] - Department of Dermatology [address], [address] [phone] documented in this encounter Visit Diagnoses Not on filedocumented in this encounter
--- OUTSIDE RECORDS SUMMARY | 2024-08-26 09:55 | XMS_ITS | Encounter Summary ---
Author Organization [facility] Address [address] [place] [address] Care Team Providers Care Clerical Investigator Name Role Phone Unavailable Primary Care Provider Unavailabl e Encounter Details Date Type Department Care Team (Late st Contact Info) Description 06/25/2020 Lab Requisition [facility] DermPath Lab [address] [facility], [facility] [place] [phone] Naveed Borges MD [address] [place] [address] Social History Tobacco Use Types Packs/Day Years [...] Priority Date/Time Associated Diagnosis Comments DERMATOPATHOLOGY Routine 06/24/2020 12:0 0 AM CDT documented in this encounter Results * DERMATOPATHOLOGY (06/24/2020 12:00 AM CDT) Case Report Dermatopathology Report Case: [id number] Authorizing Provider: Naveed Borges MD Collected: 06/24/2020 12:00 AM Ordering Location: [facility]erm[facility] Lab Received: 06/25/2020 12:39 PM Pathologist: Linh Lipscomb MD Specimen: Skin, nail 7:09 PM CDT DERMATOPATHOLOGY LABORATORY Final Diagnosis Specimen A. SKIN, nail: NAIL PLATE WITH FUNGAL YEAST FORMS (B35.1) (see microscopic description and comment) 7:09 PM CDT DERMATOPATHOLOGY LABORATORY at 1909 CDT Clinical History R/O fungus. 1 7:09 PM CDT DERMATOPATHOLOGY LABORATORY Gross Description Specimen A: Received is one formalin filled container labeled with the patient's name and designated nail. The specimen consists of a nail (3 pieces) clipping measuring 6u2q6dt, 9f7c2ft, 4p3t6jt. Jar 0. 1 7:09 PM CDT DERMATOPATHOLOGY LABORATORY Microscopic Description Specimen A. SKIN, nail: Sections show nail plate. Fungal yeast forms are present on Periodic acid-Brianna (PAS) stained sections. COMMENT: Some of the histologic findings are suggestive of a non dermatophyte infection; therefore, correlation with culture is recommended. 7:09 PM CDT DERMATOPATHOLOGY LABORATORY Disclaimer An external and internal positive and negative controls are appropriate for the histochemical, immunohistochemical and immunofluorescence stain(s) in this case (if any), except where stated explicitly. The performance characteristics of the stain(s) cited in this report were developed and its performance characteristic determined by the Dermatopathology Laboratory at [facility], directed by Dr. Rosey Lipscomb. These tests need not be, and therefore are not, approved by the [place] Food and Drug Administration. The tests are used for clinical purposes. Billing Codes Specimen Charges Stain Charges 42890 1 65926 1 7:09 PM CDT DERMATOPATHOLOGY LABORATORY Embedded Images 7:09 PM CDT DERMATOPATHOLOGY LABORATORY Pathology/Cytolog y TISSUE SPECIMEN FROM SKIN / Unknown 06/24/2020 06/25/2020 12:39 PM CDT Naveed Borges MD LAB - PATHOLOGY/CYTOLOGY ORD ERABLES Final Result DERMATOPATHOLOGY LABORATORY [facility] - Department of Dermatology [address], [address] [phone] documented in this encounter Visit Diagnoses Not on filedocumented in this encounter
[2024-08-26 10:02] VITALS: BP 150/78; PULSE 85; RESP 20; O2SAT 97
[2024-08-26 10:30] VITALS: BP 119/74; PULSE 70; RESP 16; TEMP 36.6; O2SAT 96
--- OUTSIDE RECORDS SUMMARY | 2024-08-26 10:53 | XMS_ITS | Encounter Summary ---
Author Organization [facility] Address [address] [place] [address] Care Team Providers Care Managing Jeweler Name Role Phone Unavailable Primary Care Provider Unavailabl e Encounter Details Date Type Department Care Team (Late st Contact Info) Description 12/29/2022 Lab Requisition [facility] - DermPath Lab [address] [facility], [place] [address] Reena Barton DO [address] [facility] [address] [place] [address] Social History Tobacco Use Types Packs/Day Years [...] Comments DERMATOPATHOLOGY Routine 12/29/2022 10:0 8 AM SOIL FIELD TECHNICIAN documented in this encounter Results * DERMATOPATHOLOGY (12/29/2022 10:08 AM SOIL FIELD TECHNICIAN) Case Report Dermatopathology Report Case: [id number] Authorizing Provider: Reena Barton DO Collected: 12/29/2022 10:08 AM Ordering Location: [facility] Derm[facility] Lab Received: 12/29/2022 03:54 PM Pathologist: Mily Morgan MD Specimen: Skin, left upper arm 3 3:46 PM SOIL FIELD TECHNICIAN DERMATOPATHOLOGY LABORATORY Final Diagnosis Specimen A. 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 The specimen consists of a shave biopsy measuring 7x6x1 mm. Jar 0. 3 3:46 PM [facility] DERMATOPATHOLOGY LABORATORY Microscopic Description Specimen A. SKIN, left upper arm: The epidermis shows parakeratosis, full thickness disorderly maturation of keratinocytes, mitoses at different levels, and dyskeratotic cells. 3 3:46 PM [facility] DERMATOPATHOLOGY LABORATORY Disclaimer An external and internal positive and negative controls are appropriate for the histochemical, immunohistochemical and immunofluorescence stain(s) in this case (if any), except where stated explicitly. The performance characteristics of the stain(s) cited in this report were developed and its performance characteristic determined by the Dermatopathology Laboratory at [facility], directed by Dr. Rosey Lipscomb. These tests need not be, and therefore are not, approved by the [place] Food and Drug Administration. The tests are used for clinical purposes. Billing Codes Specimen Charges Stain Charges 66403 1 3 3:46 PM [facility] DERMATOPATHOLOGY LABORATORY Embedded Images 3 3:46 PM [facility] DERMATOPATHOLOGY LABORATORY Pathology/Cytolo gy TISSUE SPECIMEN FROM SKIN / Unknown 12/29/2022 10:08 AM SOIL FIELD TECHNICIAN 12/29/2022 3:54 PM [facility] us Reena Barton DO LAB - PATHOLOGY/CYTOLOGY ORDERABLES Final Result DERMATOPATHOLOGY LABORATORY [facility] - Department of Dermatology [address] [place] [address], [facility] [phone] documented in this encounter Visit Diagnoses Not on filedocumented in this encounter
--- OUTSIDE RECORDS SUMMARY | 2024-08-26 10:53 | XMS_ITS | Encounter Summary ---
Author Organization [facility] Address [address] [place] [address] Care Team Providers Care Production Worker Name Role Phone Unavailable Primary Care Provider Unavailabl e Encounter Details Date Type Department Care Team (Late st Contact Info) Description 06/25/2020 Lab Requisition [facility] DermPath Lab [address] [facility], [facility] [place] [id number] Naveed Borges MD [address] [place] [address] Social History Tobacco Use Types [...] AM CDT) Case Report Dermatopathology Report Case: [id number] Authorizing Provider: Naveed Borges MD Collected: 06/24/2020 12:00 AM Ordering Location: [facility]erm[facility] Lab Received: 06/25/2020 12:39 PM Pathologist: [...] of a nail (3 pieces) clipping measuring 1c4l8qk, 9v5i6kq, 3t0e7jp. Jar 0. 1 7:09 PM CDT DERMATOPATHOLOGY [...] characteristic determined by the Dermatopathology Laboratory at [facility], directed by Dr. Rosey Lipscomb. These tests need not be, and therefore are not, approved by the [place] Food and Drug Administration. The tests are used for clinical purposes. Billing Codes Specimen Charges Stain Charges 75757 1 09469 1 7:09 PM CDT DERMATOPATHOLOGY LABORATORY Embedded Images 7:09 PM CDT DERMATOPATHOLOGY LABORATORY Pathology/Cytolog y TISSUE SPECIMEN FROM SKIN / Unknown 06/24/2020 06/25/2020 12:39 PM CDT Naveed Borges MD LAB - PATHOLOGY/CYTOLOGY ORD ERABLES Final Result DERMATOPATHOLOGY LABORATORY [facility] - Department of Dermatology [address], [address] [phone] documented in this encounter Visit Diagnoses Not on filedocumented in this encounter
--- OUTSIDE RECORDS SUMMARY | 2024-08-26 10:53 | XMS_ITS | Encounter Summary ---
Author Organization [facility] Address [address] [place] [address] Care Team Providers Care Shrub Grower Name Role Phone Unavailable Primary Care Provider Unavailabl e Encounter Details Date Type Department Care Team (Late st Contact Info) Description 04/09/2022 Lab Requisition [facility] DermPath Lab [address] [place] [id number] Naveed Borges MD [address] [place] [address] Social History Tobacco Use Types Packs/Day Years [...] Diagnosis Comments DERMATOPATHOLOGY Routine 04/08/2022 3:33 AM CUSTOMS COMPLIANCE MANAGER documented in this encounter Results * DERMATOPATHOLOGY (04/08/2022 3:33 AM CUSTOMS COMPLIANCE MANAGER) Case Report Dermatopathology Report Case: [id number] Authorizing Provider: Naveed Borges MD Collected: 04/08/2022 03:33 AM Ordering Location: [facility] DermPath Lab Received: 04/09/2022 02:13 PM Pathologist: Linh Lipscomb MD Specimen: Skin, neck - behind right earlobe 3 4:41 PM CUSTOMS COMPLIANCE MANAGER DERMATOPATHOLOGY LABORATORY Final Diagnosis Specimen A. 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 Please Check Margins. 3 4:41 PM [facility] DERMATOPATHOLOGY LABORATORY Gross Description Specimen A: Received is one formalin filled container labeled with the patients name and designated neck - behind right earlobe. The specimen consists of a shave removal measuring [id number] and it is inked. Jar 0. 3 4:41 PM [facility] DERMATOPATHOLOGY LABORATORY Microscopic Description Specimen A. SKIN, neck - behind right earlobe: The epidermis shows parakeratosis, full thickness disorderly maturation of keratinocytes, mitoses at different levels, and dyskeratotic cells. This lesion is not present at the sampled margin of the specimen. 3 4:41 PM [facility] DERMATOPATHOLOGY LABORATORY Disclaimer An external and internal positive and negative controls are appropriate for the histochemical, immunohistochemical and immunofluorescence stain(s) in this case (if any), except where stated explicitly. The performance characteristics of the stain(s) cited in this report were developed and its performance characteristic determined by the Dermatopathology Laboratory at [facility], directed by Dr. Rosey Lipscomb. These tests need not be, and therefore are not, approved by the [place] Food and Drug Administration. The tests are used for clinical purposes. Billing Codes Specimen Charges Stain Charges 00377 1 3 4:41 PM [facility] DERMATOPATHOLOGY LABORATORY Embedded Images 3 4:41 PM [facility] DERMATOPATHOLOGY LABORATORY Pathology/Cytolo gy TISSUE SPECIMEN FROM SKIN / Unknown 04/08/2022 3:33 AM CUSTOMS COMPLIANCE MANAGER 04/09/2022 2:13 PM [facility] Naveed Borges MD LAB - PATHOLOGY/CYTOLOGY ORD ERABLES Final Result DERMATOPATHOLOGY LABORATORY [facility] - Department of Dermatology [address], [address] [phone] documented in this encounter Visit Diagnoses Not on filedocumented in this encounter
--- OUTSIDE RECORDS SUMMARY | 2024-08-26 10:53 | XMS_ITS | Encounter Summary ---
Author Organization [facility] Address [address] [address] Care Team Providers Care Third Loader Name Role Phone Unavailable Primary Care Provider Unavailabl e Encounter Details Date Type Department Care Team (Late st Contact Info) Description 08/05/2022 Lab Requisition [facility] - DermPath Lab [address] [facility] [place] [phone] Naveed Borges MD [address] [place] [address] Social History Tobacco Use Types Packs/Day Years [...] AM CDT) Case Report Dermatopathology Report Case: [id number] Authorizing Provider: Naveed Borges MD Collected: 08/04/2022 12:00 AM Ordering Location: [facility] DermPath Lab Received: 08/05/2022 02:24 PM Pathologist: [...] specimen consists of a shave biopsy measuring 91y21m6 mm. Jar 0. 3 4:50 PM CDT [...] characteristic determined by the Dermatopathology Laboratory at [facility], directed by Dr. Rosey Lipscomb. These tests need not be, and therefore are not, approved by the [place] Food and Drug Administration. The tests are used for clinical purposes. Billing Codes Specimen Charges Stain Charges 82511 1 3 4:50 PM CDT DERMATOPATHOLOGY LABORATORY Embedded Images 3 4:50 PM CDT DERMATOPATHOLOGY LABORATORY Pathology/Cytolog y TISSUE SPECIMEN FROM SKIN / Unknown 08/04/2022 08/05/2022 2:24 PM CDT Naveed Borges MD LAB - PATHOLOGY/CYTOLOGY ORD ERABLES Final Result DERMATOPATHOLOGY LABORATORY [facility] - Department of Dermatology [address] [phone] documented in this encounter Visit Diagnoses Not on filedocumented in this encounter
--- OUTSIDE RECORDS SUMMARY | 2024-08-26 10:53 | XMS_ITS | Referral Summary ---
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 1 9 Active budesonide-form oterol [...] (12/12/2020): Added automatically from request for surgery [id number] Left carpal tunnel syndrome 11/08/2020 Overview (11/08/2020): Added automatically from request for surgery [id number] Social History Tobacco Use Types Packs/Day Years [...] on file 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 Gender Identity Not on file Sexual Orientation Not on file Last Filed Vital Signs Vital Sign Reading Time Taken Comments Blood Pressure 158/84 12/02/2021 8:23 AM CDT Pulse 90 12/02/2021 8:23 AM CDT Temperature 36.4 C (97.5 F) 02/24/2021 8:49 AM GAS UTILITY WORKER Respiratory Rate 15 12/02/2021 8:23 AM CDT Oxygen Saturation 98% 12/24/2020 8:15 AM GAS UTILITY WORKER Inhaled Oxygen Concentration - - Weight 85.3 kg (188 lb) 12/02/2021 8:23 AM CDT Height 170.2 cm (5' 7) 12/02/2021 8:23 AM CDT Body Mass Index 29.44 12/02/2021 8:23 AM CDT Plan of Treatment Not on file Insurance MEDICARE [facility] MEDICARE [facility] Care Teams Gasket Inspector Relationship Specialty Start Date End Date Jesus Nicole MD PCP - General Internal Medicine 02/21/18 Blayne Capone MD Consulting Physician Plastic Surgery 11/26/20
--- OUTSIDE RECORDS SUMMARY | 2024-08-26 10:53 | XMS_ITS | Encounter Summary ---
Author Organization [facility] Address [address] [facility] [place] [address] Care Team Providers Care Driver License Reviewing Officer Name Role Phone Unavailable Primary Care Provider Unavailabl e Encounter Details Date Type Department Care Team (Late st Contact Info) Description 02/24/2023 Lab Requisition [facility] - DermPath Lab [address] [facility], [place] [address] Reena Barton DO [address] [facility] [address] [place] [address] Social History Tobacco Use Types Packs/Day Years [...] Diagnosis Comments DERMATOPATHOLOGY Routine 02/24/2023 8:43 AM PUMPING STATION ENGINEER documented in this encounter Results * DERMATOPATHOLOGY (02/24/2023 8:43 AM PUMPING STATION ENGINEER) Case Report Dermatopathology Report Case: [id number] Authorizing Provider: Reena Barton DO Collected: 02/24/2023 08:43 AM Ordering Location: [facility] DermPath Lab Received: 02/24/2023 01:31 PM Pathologist: Jennifer Galvez MD Specimen: Skin, left upper arm 4 4:06 PM PUMPING STATION ENGINEER DERMATOPATHOLOGY LABORATORY Final Diagnosis Specimen A. 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 The specimen consists of a non-oriented ellipse of skin measuring 40r92x6 mm. The margin is inked green. The 12 o'clock and 6 o'clock tips are submitted in cassette 1. The remainder of the ellipse is serially sectioned and submitted in cassette 2 - 3. Jar 0. 4 4:06 PM [facility] DERMATOPATHOLOGY LABORATORY Microscopic Description Specimen A. SKIN, left upper arm: There are fibroblasts and collagen bundles oriented parallel to the skin surface. There are elongated blood vessels, some of which are oriented perpendicular to the skin surface. No residual squamous cell carcinoma is identified. 4 4:06 PM [facility] DERMATOPATHOLOGY LABORATORY Disclaimer An external and internal positive and negative controls are appropriate for the histochemical, immunohistochemical and immunofluorescence stain(s) in this case (if any), except where stated explicitly. The performance characteristics of the stain(s) cited in this report were developed and its performance characteristic determined by the Dermatopathology Laboratory at [facility], directed by Dr. Rosey Lipscomb. These tests need not be, and therefore are not, approved by the [place] Food and Drug Administration. The tests are used for clinical purposes. Billing Codes Specimen Charges Stain Charges 88109 1 4 4:06 PM [facility] DERMATOPATHOLOGY LABORATORY Embedded Images 4 4:06 PM [facility] DERMATOPATHOLOGY LABORATORY Pathology/Cytolo gy TISSUE SPECIMEN FROM SKIN / Unknown 02/24/2023 8:43 AM PUMPING STATION ENGINEER 02/24/2023 1:31 PM [facility] us Reena Barton DO LAB - PATHOLOGY/CYTOLOGY ORDERABLES Final Result DERMATOPATHOLOGY LABORATORY [facility] - Department of Dermatology [address] [phone] documented in this encounter Visit Diagnoses Not on filedocumented in this encounter
--- OUTSIDE RECORDS SUMMARY | 2024-08-26 10:53 | XMS_ITS | Clinical Summary ---
Author Organization [facility] [employer] Address [address] [place] [address] Care Team Providers Care Rotary Helper Name Role Phone Unavailable Primary Care Provider Unavailabl e Source Comments [facility] [employer],non-owned Affiliates and Associated Physician Practices is amultiple site organization consisting of ambulatory clinics and hospital sitesin [place], [place], [place] and [place]. This disclosure is being madepursuant to the Care Everywhere program and may not contain all information available regarding this patient. Last updated 17.[facility] [employer] Social History Tobacco Use Types Packs/Day Years [...] age to complete this topic Insurance MEDICARE COUNT INCLUDES THE [facility] MEDICARE COUNT INCLUDES THE [facility]
--- OUTSIDE RECORDS SUMMARY | 2024-08-26 10:53 | XMS_ITS | Clinical Summary ---
Author Organization [facility] Address [address] [place] [address] Care Team Providers Care Chili Powder Mixer Name Role Phone Jesus Nicole MD Primary Care Provider [phone] Social History Tobacco Use Types Packs/Day Years [...] age to complete this topic Insurance MEDICARE [facility] Care Teams Chili Powder Mixer Relationship Specialty Start Date End Date Jesus Nicole MD [address] [address] PCP - General INTERNAL MEDICINE 12/08/22
--- OUTSIDE RECORDS SUMMARY | 2024-08-26 10:53 | XMS_ITS | Clinical Summary ---
Author Organization [facility] [address] Address [address] [place] [address] Care Team Providers Care Application Support Administrator Name Role Phone Jesus Nicole MD Primary Care Provider Blayne Capone MD Unavailable [phone] Allergies No known active allergies Medications VENTOLIN HFA 90 mcg/actuation inhaler Take 2 puffs by mouth every 6 (six) hours as needed 0 8 Active levothyroxine (SYNTHROID, LEVOTHROID) 150 mcg tablet Take 150 mcg by mouth care professionals before breakfast 1 9 Active budesonide-form oterol [...] (12/12/2020): Added automatically from request for surgery [id number] Left carpal tunnel syndrome 11/08/2020 Overview (11/08/2020): Added automatically from request for surgery [id number] Surgical History Surgery Date Site/Laterality Comments CATARACT [...] on file 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 Gender Identity Not on file Sexual Orientation Not on file Obstetrics History Last Filed Vital Signs Vital Sign Reading Time Taken Comments Blood Pressure 158/84 12/02/2021 8:23 AM CDT Pulse 90 12/02/2021 8:23 AM CDT Temperature 36.4 C (97.5 F) 02/24/2021 8:49 AM CURATOR Respiratory Rate 15 12/02/2021 8:23 AM CDT Oxygen Saturation 98% 12/24/2020 8:15 AM CURATOR Inhaled Oxygen Concentration - - Weight 85.3 [...] vaccine 65+ Completed 11/17/2015, 08/2014 Insurance MEDICARE [facility] MEDICARE [facility] Care Teams Application Support Administrator Relationship Specialty Start Date End Date Jesus Nicole MD PCP - General Internal Medicine 02/21/18 Blayne Capone MD Consulting Physician Plastic Surgery 11/26/20
--- OUTSIDE RECORDS SUMMARY | 2024-08-26 10:53 | XMS_ITS | Continuity of Care Document ---
Author Organization [facility] Address [address] [place] [address] [address] [place] [address] Phone Care Team Providers Care Investment Associate Name Role Phone Mitchell Hughes Unavailable Unavailable Procedures Procedure Date Eye Exam Established Pt Advance Directives Directive Yes / No Effective Date File Name No Information Encounters Encounter Description Practice Location Reason(s) For Visit Diagnoses Date Provider Providers Copied on Encounter [facility], [id number] [place] [address] [address], [place], [place], [id number], [place] tel:[phone] [facility] [place] No Information [address]. [address] [facility] , [address], [place], [address], [place]. tel:[phone] Family History Family Member Type Diagnosis Age At Onset No Information Payers Payer name Insurance type Covered democrat ID Authoriza tion(s) No Information Social History [...]
--- NOTE | 2024-08-26 11:09 | ED_ITS ---
HPI - General Adult General Chief complaint: Extremity Injury, Upper Stated complaint: right arm skin tear 2 days ago Time Seen by Provider: 08/26/24 10:04 History of Present Illness HPI narrative: 78-year-old male presents emergency department for evaluation for a skin tear that occurred yesterday. Family did had attempt to repair the skin tear but they were concerned about infection so they brought the patient in for evaluation. Skin tears approximately 15 cm flap but is otherwise well-appearing with no evidence of underlying infection Related Data Home Medications ?Medication ?Instructions ?Recorded ?Confirmed ?Last Taken ?Type albuterol sulfate 90 mcg/actuation inhalation 11/09/23 11/23/23 Unknown History aerosol inhaler ezetimibe 10 mg tablet mg PO DAILY 11/09/23 11/23/23 Unknown History fluticasone 113 mcg-salmeterol 14 inh inhalation 11/09/23 11/23/23 Unknown History mcg/actuation breath activated powdr levothyroxine 150 mcg tablet mcg PO DAILY 11/09/23 11/23/23 Unknown History losartan 50 mg tablet mg PO DAILY 11/09/23 11/23/23 Unknown History Allergies Allergy/AdvReac Type Severity Reaction Status Date / Time No Known Allergies Allergy Unknown NONE Verified 11/23/23 07:48 Review of Systems Review of Systems: All systems reviewed & are unremarkable except as noted in HPI and below PMFSH Past Medical History Medical History Allergies Hypertension Thyroid disorder Surgical History Surgical History S/P total left hip arthroplasty Family History Family History Other Family history of cardiovascular disease Social History Social History Smoking status: Never smoker Alcohol intake: current Alcohol use details: occasionally Substance use: never Substance use type: does not use Current Housing: Decline to Answer Concerned About Future Housing: Decline to Answer Difficulty Paying Gas/Electric Bills: Decline to Answer Difficulty Paying for Meds: Decline to Answer Currently Unemployed: Decline to Answer Education: Decline to Answer Difficulty w/ Childcare or Family Care: Decline to Answer Exam Narrative: APPEARANCE: Well appearing, no pain, no distress, well-nourished. HEAD: normocephalic, atraumatic. EYES: PERRLA/EOMI, conjunctivae clear. NOSE: Normal no drainage EARS:TMS clear with good light reflex. THROAT: Pharynx clear, no exudate. NECK: Supple. No adenopathy, no masses. RESPIRATORY: Airway patent, respirations nonlabored. Clear to auscultation bilaterally, no rales, rhonchi, wheezing. CARDIOVASCULAR: Regular rate and rhythm without murmurs rubs or gallops. ABDOMINAL: Soft, nontender, nondistended, normal bowel sounds MUSCULOSKELETAL: Moves all extremities. Strength/ROM intact, No edema, No calf tenderness. NEURO: Alert. Cranial nerves II through XII intact. Good gait. Good coordination SKIN: 15 cm skin tear on right forearm Course Vital Signs Vital signs: Vital Signs Pulse Rate 85 08/26/24 10:02 Respiratory Rate 20 08/26/24 10:02 Blood Pressure 150/78 H 08/26/24 10:02 Pulse Oximetry 97 08/26/24 10:02 Oxygen Delivery Room Air 08/26/24 10:02 Temperature 97.9 F 08/26/24 10:30 Pulse Rate 70 08/26/24 10:30 Respiratory Rate 16 08/26/24 10:30 Blood Pressure 119/74 08/26/24 10:30 Pulse Oximetry 96 08/26/24 10:30 Oxygen Delivery Room Air 08/26/24 10:02 Procedures Laceration Laceration 1: Time: 11:10 Site: upper extremity Side (If applicable): right Size (cm): 15 Description: flap Depth: simple, single layer Local Anesthetic: none Pre-repair: wound explored and irrigated ====== Skin Level ====== Skin layer closed with: steri strips ====== Subcutaneous Layer ====== ====== Muscle Layer ====== ====== Tendon Layer ====== Medical Decision Making MDM Narrative Medical decision making narrative: 78-year-old male present to the ED for evaluation for a skin tear. No evidence of associated skin infection. Wound was repaired was Steri-Strips and patient was discharged home with wound care instructions. Patient and family are comfortable be with the discharge and treatment plan. Differential Diagnosis Differential Diagnosis: Skin tear, cellulitis Vital Signs Vital Signs: Vital Signs Pulse Rate 85 08/26/24 10:02 Respiratory Rate 20 08/26/24 10:02 Blood Pressure 150/78 H 08/26/24 10:02 Pulse Oximetry 97 08/26/24 10:02 Oxygen Delivery Room Air 08/26/24 10:02 Temperature 97.9 F 08/26/24 10:30 Pulse Rate 70 08/26/24 10:30 Respiratory Rate 16 08/26/24 10:30 Blood Pressure 119/74 08/26/24 10:30 Pulse Oximetry 96 08/26/24 10:30 Oxygen Delivery Room Air 08/26/24 10:02 Discharge Plan Discharge Clinical Impression: Skin tear Patient Disposition: Home Condition: Stable Instructions: Antibiotic Form, Skin Adhesive Strips (ED) Additional Instructions: Your tetanus was updated today. Wound care as directed. Have close follow-up with your primary care physician. Patient Language: Croatian Prescriptions: No Action fluticasone propion-salmeterol 113-14 mcg/actuation aerosol powdr breath activated inhalation levothyroxine 150 mcg tablet PO DAILY ezetimibe 10 mg tablet PO DAILY losartan 50 mg tablet PO DAILY albuterol sulfate 90 mcg/actuation HFA aerosol inhaler inhalation Follow-up/Referrals: Corey,Jesus Pritchard MD [Primary Care Provider] -
[2024-08-26] MEDS: TETANUS,DIPHTHERIA,AC PERTUSSIS ADULT (0.5 ML) BOOSTRIX IM (11:34)
== END 2024-08-26 11:46 | disposition home or self-care (01) ==
PROVIDERS: Emergency Provider Emergency Medicine; PCP Internal Medicine
DX: S51.811A Laceration without foreign body of right forearm, initial encounter (principal); Z23 Encounter for immunization; I10 Essential (primary) hypertension; E07.9 Disorder of thyroid, unspecified; Z96.642 Presence of left artificial hip joint; Z79.899 Other long term (current) drug therapy; W01.0XXA Fall on same level from slipping, tripping and stumbling without subsequent striking against object, initial encounter
CPT/HCPCS: 90471; 90715; 99282

== ENCOUNTER 2024-09-11 08:45 | Outpatient (CLI) | payer MEDICARE, SELFPAY ==
--- OUTSIDE RECORDS SUMMARY | 2024-09-11 08:49 | XMS_ITS | Referral Summary ---
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 1 9 Active budesonide-form [...] (12/12/2020): Added automatically from request for surgery [id number] Left carpal tunnel syndrome 11/08/2020 Overview (11/08/2020): Added automatically from request for surgery [id number] Social History Tobacco Use Types Packs/Day Years [...] on file Legal Sex Male 12:59 PM RELATIONS MGR Gender Identity Not on file Sexual Orientation Not on file Last Filed Vital Signs Vital Sign Reading Time Taken Comments Blood Pressure 158/84 12/02/2021 8:23 AM CDT Pulse 90 12/02/2021 8:23 AM CDT Temperature 36.4 C (97.5 F) 02/24/2021 8:49 AM RELATIONS MGR Respiratory Rate 15 12/02/2021 8:23 AM CDT Oxygen Saturation 98% 12/24/2020 8:15 AM RELATIONS MGR Inhaled Oxygen Concentration - - Weight 85.3 kg (188 lb) 12/02/2021 8:23 AM CDT Height 170.2 cm (5' 7) 12/02/2021 8:23 AM CDT Body Mass Index 29.44 12/02/2021 8:23 AM CDT Plan of Treatment Not on file Insurance MEDICARE [facility] MEDICARE [facility] Care Teams Material Stress Tester Relationship Specialty Start Date End Date Jesus Nicole MD PCP - General Internal Medicine 02/21/18 Blayne Capone MD Consulting Physician Plastic Surgery 11/26/20
--- OUTSIDE RECORDS SUMMARY | 2024-09-11 08:49 | XMS_ITS | Clinical Summary ---
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 1 9 Active budesonide-form [...] (12/12/2020): Added automatically from request for surgery [id number] Left carpal tunnel syndrome 11/08/2020 Overview (11/08/2020): Added automatically from request for surgery [id number] Surgical History Surgery Date Site/Laterality Comments CATARACT [...] on file Legal Sex Male 12:59 PM CLARIFIER Gender Identity Not on file Sexual Orientation Not on file Obstetrics History Last Filed Vital Signs Vital Sign Reading Time Taken Comments Blood Pressure 158/84 12/02/2021 8:23 AM CDT Pulse 90 12/02/2021 8:23 AM CDT Temperature 36.4 C (97.5 F) 02/24/2021 8:49 AM CLARIFIER Respiratory Rate 15 12/02/2021 8:23 AM CDT Oxygen Saturation 98% 12/24/2020 8:15 AM CLARIFIER Inhaled Oxygen Concentration - - Weight 85.3 [...] Assessment 12/02/2022 12/02/2021, 11/26/2020, 04/13/2018 Influenza Vaccine (#1) 2024 2, 11/09/2019, 10/13/2019, Additional history exists Pneumococcal vaccine 65+ Completed 11/17/2015, 08/2014 Insurance MEDICARE PENDING SALE TO [facility] MEDICARE PENDING SALE TO [facility] Care Teams Die Machine Operator Relationship Specialty Start Date End Date Jesus Nicole MD PCP - General Internal Medicine 02/21/18 Blayne Capone MD Consulting Physician Plastic Surgery 11/26/20
--- OUTSIDE RECORDS SUMMARY | 2024-09-11 08:49 | XMS_ITS | Continuity of Care Document ---
Author Organization [facility] Address [address] [place] [address] [address] [place] [address] Phone Care Team Providers Care Emergency Medical Technician/Driver Name Role Phone Mitchell Hughes Unavailable Unavailable Procedures Procedure Date Eye Exam Established Pt Advance Directives Directive Yes / No Effective Date File Name No Information Encounters Encounter Description Practice Location Reason(s) For Visit Diagnoses Date Provider Providers Copied on Encounter [facility], [address] [place] [address] [address], [place], [place], [id number], [place] tel:[phone] [facility] No Information 6-200 [address] Doisy Edward. [address] [facility] , [address], [place], [address], [place]. tel:[phone] Family History Family Member Type Diagnosis Age At Onset No Information Payers Payer name Insurance type Covered constitution party ID Authoriza tion(s) No Information Social [...]
--- OUTSIDE RECORDS SUMMARY | 2024-09-11 08:49 | XMS_ITS | Patient Health Record ---
Author Organization [facility] Address [address] [place] [address] [place] [address] Care Team Providers Care Baby Formula Mixer Name Role Phone JEM SANDHU MD Primary [...] W/U Status Risk SNOMED Code Notes Problem Unilateral primary osteoarthritis, left hip (M16.12) Active confirmed Localized, primary osteoarthritis of the pelvic region and thigh (082639102) Problem Osteoarthritis of hip, unspecified (M16.9) Active confirmed Osteoarthritis of hip (408792209) Problem Pain in left hip (M25.552) Active confirmed Pain of left hi p joint (finding) (054961202404368) Problem Sacroiliitis, not elsewhere classified (M46.1) Active confirmed Solitary sacroiliitis (001884869) Problem Spondylosis without myelopathy or radiculopathy, lumbar region (M47.816) Active confirmed Lumbosacral spondylosis without myelopathy (75598029) Problem Spondylosis without myelopathy or radiculopathy, lumbosacral region (M47.817) Active confirmed Lumbosacral spondylosis without myelopathy (disorder) (19098341) Problem Other intervertebral disc degeneration, lumbar region (M51.36) Active confirmed Degeneration of lumbar intervertebral disc (68855218) Problem Radiculopathy, lumbar region (M54.16) Active confirmed Lumbar radiculopathy (314946487) Problem Osseous stenosis of neural canal of lumbar region (M99.33) Active confirmed Spinal stenosis of lumbar region (89355079) PLAN OF TREATMENT No Information Insurance Providers Payer Name Payer Address Payer Phone Subscriber Number Group Number Insured Name Patient Relationship to Insured Coverage Start Date Coverage End Date Medicare [place] [address] [address] [place] [address] [id number] BO MARTINEZ Self - patient is the insured [facility] [address] [place] [address] [id number] BO MARTINEZ Self - patient is the insured MEDICAL (GENERAL) HISTORY Medical History History ICD Code Hyperthyroidism Asthma BPH Umbilical hernia Skin cancer Hypothyroidism Surgical History Surgery Date(Month/Year) Bilateral carpal tunnel release 2020
--- OUTSIDE RECORDS SUMMARY | 2024-09-11 08:49 | XMS_ITS | Clinical Summary ---
Author Organization [facility] Address [address] [place] [address] Care Team Providers Care Hospital Food Service Worker Name Role Phone Jesus Nicole MD Primary Care Provider [phone] Social History Tobacco Use Types Packs/Day Years [...] age to complete this topic Insurance MEDICARE [facility] Care Teams Hospital Food Service Worker Relationship Specialty Start Date End Date Jesus Nicole MD [address] [address] PCP - General INTERNAL MEDICINE 12/08/22
--- OUTSIDE RECORDS SUMMARY | 2024-09-11 08:50 | XMS_ITS | Encounter Summary ---
Author Organization [facility] Address [address] [facility] [place] [address] Care Team Providers Care Engraver Machine Name Role Phone Unavailable Primary Care Provider Unavailabl e Encounter Details Date Type Department Care Team (Late st Contact Info) Description 04/09/2022 Lab Requisition [facility] DermPath Lab [address] [facility], [place] [address] Naveed Broges MD [address] [place] [address] Social History Tobacco Use Types Packs/Day Years [...] Diagnosis Comments DERMATOPATHOLOGY Routine 04/08/2022 3:33 AM CHROME PLATER HELPER documented in this encounter Results * DERMATOPATHOLOGY (04/08/2022 3:33 AM CHROME PLATER HELPER) Case Report Dermatopathology Report Case: [id number] Authorizing Provider: Naveed Borges MD Collected: 04/08/2022 03:33 AM Ordering Location: [facility] DermPath Lab Received: 04/09/2022 02:13 PM Pathologist: Linh Lipscomb MD Specimen: Skin, neck - behind right earlobe 3 4:41 PM CHROME PLATER HELPER DERMATOPATHOLOGY LABORATORY Final Diagnosis Specimen A. 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 Please Check Margins. 3 4:41 PM [facility] DERMATOPATHOLOGY LABORATORY Gross Description Specimen A: Received is one formalin filled container labeled with the patients name and designated neck - behind right earlobe. The specimen consists of a shave removal measuring 68d15v1ed and it is inked. Jar 0. 3 4:41 PM [facility] DERMATOPATHOLOGY LABORATORY Microscopic Description Specimen A. SKIN, neck - behind right earlobe: The epidermis shows parakeratosis, full thickness disorderly maturation of keratinocytes, mitoses at different levels, and dyskeratotic cells. This lesion is not present at the sampled margin of the specimen. 3 4:41 PM [facility] DERMATOPATHOLOGY LABORATORY Disclaimer An external and internal positive and negative controls are appropriate for the histochemical, immunohistochemical and immunofluorescence stain(s) in this case (if any), except where stated explicitly. The performance characteristics of the stain(s) cited in this report were developed and its performance characteristic determined by the Dermatopathology Laboratory at [facility], directed by Dr. Rosey Lipscomb. These tests need not be, and therefore are not, approved by the [place] Food and Drug Administration. The tests are used for clinical purposes. Billing Codes Specimen Charges Stain Charges 04446 1 3 4:41 PM [facility] DERMATOPATHOLOGY LABORATORY Embedded Images 3 4:41 PM [facility] DERMATOPATHOLOGY LABORATORY Pathology/Cytolo gy TISSUE SPECIMEN FROM SKIN / Unknown 04/08/2022 3:33 AM CHROME PLATER HELPER 04/09/2022 2:13 PM [facility] Naveed Borges MD LAB - PATHOLOGY/CYTOLOGY ORD ERABLES Final Result DERMATOPATHOLOGY LABORATORY [facility] - Department of Dermatology [address], [address] [phone] documented in this encounter Visit Diagnoses Not on filedocumented in this encounter
--- OUTSIDE RECORDS SUMMARY | 2024-09-11 08:50 | XMS_ITS | Encounter Summary ---
Author Organization [facility] Address [address] [place] [address] Care Team Providers Care Barber Instructor Name Role Phone Unavailable Primary Care Provider Unavailabl e Encounter Details Date Type Department Care Team (Late st Contact Info) Description 02/24/2023 Lab Requisition [facility] - DermPath Lab [address] [facility], [place] [address] Reena Barton DO [address] [facility] 3 [place] [address] Social History Tobacco Use Types Packs/Day Years [...] Diagnosis Comments DERMATOPATHOLOGY Routine 02/24/2023 8:43 AM RECREATION AIDE documented in this encounter Results * DERMATOPATHOLOGY (02/24/2023 8:43 AM RECREATION AIDE) Case Report Dermatopathology Report Case: [id number] Authorizing Provider: Reena Barton DO Collected: 02/24/2023 08:43 AM Ordering Location: [facility] DermPath Lab Received: 02/24/2023 01:31 PM Pathologist: Jennifer Galvez MD Specimen: Skin, left upper arm 4 4:06 PM RECREATION AIDE DERMATOPATHOLOGY LABORATORY Final Diagnosis Specimen A. SKIN, left upper arm: DERMAL SCAR RESIDUAL SQUAMOUS CELL CARCINOMA IN SITU NOT IDENTIFIED (L90.5) 4 4:06 PM RECREATION AIDE DERMATOPATHOLOGY LABORATORY at 1606 RECREATION AIDE Clinical History BX proven SCCIS 4 4:06 PM [facility] DERMATOPATHOLOGY LABORATORY Gross Description Specimen A: Received is one formalin filled container labeled with the patient's name and designated left upper arm. The specimen consists of a non-oriented ellipse of skin measuring 26q78l9 mm. The margin is inked green. The 12 o'clock and 6 o'clock tips are submitted in cassette 1. The remainder of the ellipse is serially sectioned and submitted in cassette 2 - 3. Jar 0. 4 4:06 PM [facility] DERMATOPATHOLOGY LABORATORY Microscopic Description Specimen A. SKIN, left upper arm: There are fibroblasts and collagen bundles oriented parallel to the skin surface. There are elongated blood vessels, some of which are oriented perpendicular to the skin surface. No residual squamous cell carcinoma is identified. 4 4:06 PM [facility] DERMATOPATHOLOGY LABORATORY Disclaimer An external and internal positive and negative controls are appropriate for the histochemical, immunohistochemical and immunofluorescence stain(s) in this case (if any), except where stated explicitly. The performance characteristics of the stain(s) cited in this report were developed and its performance characteristic determined by the Dermatopathology Laboratory at [facility], directed by Dr. Rosey Lipscomb. These tests need not be, and therefore are not, approved by the [place] Food and Drug Administration. The tests are used for clinical purposes. Billing Codes Specimen Charges Stain Charges 35804 1 4 4:06 PM [facility] DERMATOPATHOLOGY LABORATORY Embedded Images 4 4:06 PM [facility] DERMATOPATHOLOGY LABORATORY Pathology/Cytolo gy TISSUE SPECIMEN FROM SKIN / Unknown 02/24/2023 8:43 AM RECREATION AIDE 02/24/2023 1:31 PM [facility] us Reena Barton DO LAB - PATHOLOGY/CYTOLOGY ORDERABLES Final Result DERMATOPATHOLOGY LABORATORY [facility] - Department of Dermatology [address], [address] [phone] documented in this encounter Visit Diagnoses Not on filedocumented in this encounter
--- OUTSIDE RECORDS SUMMARY | 2024-09-11 08:50 | XMS_ITS | Encounter Summary ---
Author Organization [facility] Address [address] [place] [address] Care Team Providers Care Improvement Auditor Name Role Phone Unavailable Primary Care Provider Unavailabl e Encounter Details Date Type Department Care Team (Late st Contact Info) Description 12/29/2022 Lab Requisition [facility] - Derm[facility] Lab [address] [facility], [place] [address] Reena Barton DO [address] [facility] 3 [place] [address] Social History Tobacco Use Types Packs/Day Years [...] Comments DERMATOPATHOLOGY Routine 12/29/2022 10:0 8 AM MAIL ROOM CLERK documented in this encounter Results * DERMATOPATHOLOGY (12/29/2022 10:08 AM MAIL ROOM CLERK) Case Report Dermatopathology Report Case: [id number] Authorizing Provider: Reena Barton DO Collected: 12/29/2022 10:08 AM Ordering Location: [facility] DermPath Lab Received: 12/29/2022 03:54 PM Pathologist: Mily Morgan MD Specimen: Skin, left upper arm 3 3:46 PM MAIL ROOM CLERK DERMATOPATHOLOGY LABORATORY Final Diagnosis Specimen A. 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 Rosey Lipscomb. These tests need not be, and therefore are not, approved by the [place] Food and Drug Administration. The tests are used for clinical purposes. Billing Codes Specimen Charges Stain Charges 37634 1 3 3:46 PM [facility] DERMATOPATHOLOGY LABORATORY Embedded Images 3 3:46 PM [facility] DERMATOPATHOLOGY LABORATORY Pathology/Cytolo gy TISSUE SPECIMEN FROM SKIN / Unknown 12/29/2022 10:08 AM MAIL ROOM CLERK 12/29/2022 3:54 PM [facility] us Reena Barton DO LAB - PATHOLOGY/CYTOLOGY ORDERABLES Final Result DERMATOPATHOLOGY LABORATORY [facility] - Department of Dermatology [address] [place] [address], [facility] [phone] documented in this encounter Visit Diagnoses Not on filedocumented in this encounter
--- OUTSIDE RECORDS SUMMARY | 2024-09-11 08:50 | XMS_ITS | Encounter Summary ---
Author Organization [facility] Address [address] [facility] [place] [address] Care Team Providers Care Neon Pumper Name Role Phone Unavailable Primary Care Provider Unavailabl e Encounter Details Date Type Department Care Team (Late st Contact Info) Description 08/05/2022 Lab Requisition [facility] - DermPath Lab [address] [facility] [place] [address] Naveed Borges MD [address] [place] [address] Social History Tobacco Use Types Packs/Day Years [...] AM CDT) Case Report Dermatopathology Report Case: [id number] Authorizing Provider: Naveed Borges MD Collected: 08/04/2022 12:00 AM Ordering Location: [facility] DermPath Lab Received: 08/05/2022 02:24 PM Pathologist: [...] specimen consists of a shave biopsy measuring 68i79n8 mm. Jar 0. 3 4:50 PM CDT [...] determined by the Dermatopathology Laboratory at [facility], directed by Dr. Rosey Lipscomb. These tests need not be, and therefore are not, approved by the [place] Food and Drug Administration. The tests are used for clinical purposes. Billing Codes Specimen Charges Stain Charges 31805 1 3 4:50 PM CDT DERMATOPATHOLOGY LABORATORY Embedded Images 3 4:50 PM CDT DERMATOPATHOLOGY LABORATORY Pathology/Cytolog y TISSUE SPECIMEN FROM SKIN / Unknown 08/04/2022 08/05/2022 2:24 PM CDT Naveed Borges MD LAB - PATHOLOGY/CYTOLOGY ORD ERABLES Final Result DERMATOPATHOLOGY LABORATORY [facility] - Department of Dermatology [address] [phone] documented in this encounter Visit Diagnoses Not on filedocumented in this encounter
--- OUTSIDE RECORDS SUMMARY | 2024-09-11 08:50 | XMS_ITS | Encounter Summary ---
Author Organization [facility] Address [address] [facility] [place] [address] Care Team Providers Care Offset Lithographic Press Operator Name Role Phone Unavailable Primary Care Provider Unavailabl e Encounter Details Date Type Department Care Team (Late st Contact Info) Description 06/25/2020 Lab Requisition [facility] DermPath Lab [address] [facility] [place] [address] Naveed Borges MD [address] [place] [address] Social History Tobacco Use Types [...] AM CDT) Case Report Dermatopathology Report Case: [id number] Authorizing Provider: Naveed Borges MD Collected: 06/24/2020 12:00 AM Ordering Location: [facility] DermPath Lab Received: 06/25/2020 12:39 PM [...] of a nail (3 pieces) clipping measuring 2p6m3ly, 8a0n6ou, 1b6x0vl. Jar 0. 1 7:09 PM CDT DERMATOPATHOLOGY [...] characteristic determined by the Dermatopathology Laboratory at [facility], directed by Dr. Rosey Lipscomb. These tests need not be, and therefore are not, approved by the [place] Food and Drug Administration. The tests are used for clinical purposes. Billing Codes Specimen Charges Stain Charges 17850 1 44648 1 7:09 PM CDT DERMATOPATHOLOGY LABORATORY Embedded Images 7:09 PM CDT DERMATOPATHOLOGY LABORATORY Pathology/Cytolog y TISSUE SPECIMEN FROM SKIN / Unknown 06/24/2020 06/25/2020 12:39 PM CDT Naveed Borges MD LAB - PATHOLOGY/CYTOLOGY ORD ERABLES Final Result DERMATOPATHOLOGY LABORATORY [facility] - Department of Dermatology [address] [phone] documented in this encounter Visit Diagnoses Not on filedocumented in this encounter
--- OUTSIDE RECORDS SUMMARY | 2024-09-11 08:50 | XMS_ITS | Clinical Summary ---
Author Organization [facility] Address [address] [facility] [place] [address] Care Team Providers Care Senior Network Security Engineer Name Role Phone Unavailable Primary Care Provider Unavailabl e Source Comments [facility],non-owned Affiliates and Associated Physician Practices is amultiple site organization consisting of ambulatory clinics and hospital sitesin [place], [place], [place] and [place]. This disclosure is being madepursuant to the Care Everywhere program and may not contain all information available regarding this patient. Last updated 17.[facility] Social History Tobacco Use Types Packs/Day Years [...] age to complete this topic Insurance MEDICARE [facility] MEDICARE [facility]
== END 2024-09-11 08:46 | disposition home or self-care (01) ==
LOC: ANHAUDIO 08:46
PROVIDERS: PCP Internal Medicine; Visit Provider Internal Medicine
DX: H90.3 Sensorineural hearing loss, bilateral (principal); H93.13 Tinnitus, bilateral
CPT/HCPCS: 92557; 92567

== ENCOUNTER 2025-01-28 23:35 | Emergency (ER) | payer MEDICARE, SELFPAY ==
--- NOTE | ~2025-01-28 | XR_ITS ---
Examination: XR chest 2V Clinical History: cough Comparison: 03/15/2022 Technique: PA and Lateral Findings: Cardiomediastinal silhouette normal size and configuration. Lungs clear. No acute bony abnormality. IMPRESSION: 1. No acute cardiopulmonary findings. Reviewed, dictated and finalized at location R. ICAL INSTRUMENT MECHANIC
[2025-01-28 23:36] VITALS: BP 148/95; PULSE 98; RESP 20; TEMP 35.9; O2SAT 100
--- OUTSIDE RECORDS SUMMARY | 2025-01-28 23:37 | XMS_ITS | Patient Health Record ---
Author Organization [facility] Address [address] [facility] [place] [address] Phone [phone] Care Team Providers Care Chief Technician Name Role Phone JEM SANDHU MD Primary Care Provider Bernarda paige Allergies No Known Allergies Reason For Referral No Information Medications Medication SIG (Take, Route, Frequency, Duration) Notes Start Date End Date Diagnosis (ICD Code) Status Ezetimibe 10 MG Tablet 1 tablet Orally Once a day; Duration: 30 day(s) Active Levothyroxine Sodium 150 MCG Tablet 1 tablet in the morning on an empty stomach Orally Once a day; Duration: 30 day(s) Active Advil 200 MG Tablet 1 tablet with food or milk as needed Orally Three times a day Active Symbicort 160-4.5 MCG/ACT Aerosol 2 puffs Inhalation Twice a day Active Ventolin HFA 108 (90 Base) MCG/ACT Aerosol Solution 1 puff as needed Inhalation every 4 hrs Active Social History Sex Observation Social History Observation Description Sex Observation Male Social History Section Notes: The patient is retired from sales. He is with three children. He denies tobacco, alcohol, or illicit drug abuse. Problems Problem Type SNOMED Code ICD Code Dates Problem Status W/U Status Risk Notes Problem Localized, primary osteoarthritis of the pelvic region and thigh (698091234) Unilateral primary osteoarthritis, left hip (M16.12) Added On:06/18 Active confirmed Problem Osteoarthritis of hip (992107265) Osteoarthritis of hip, unspecified (M16.9) Added On:06/18 Active confirmed Problem Pain of left hip joint (finding) (784425985509847) Pain in left hip (M25.552) Added On:06/18 Active confirmed Problem Solitary sacroiliitis (475445507) Sacroiliitis, not elsewhere classified (M46.1) Added On:08/22 Active confirmed Problem Lumbosacral spondylosis without myelopathy (37746052) Spondylosis without myelopathy or radiculopathy, lumbar region (M47.816) Added On:06/05 Active confirmed Problem Lumbosacral spondylosis without myelopathy (disorder) (31165774) Spondylosis without myelopathy or radiculopathy, lumbosacral region (M47.817) Added On:06/05 Active confirmed Problem Degeneration of lumbar intervertebral disc (28815777) Other intervertebral disc degeneration, lumbar region (M51.36) Added On:06/05 Active confirmed Problem Lumbar radiculopathy (609385848) Radiculopathy, lumbar region (M54.16) Added On:06/05 Active confirmed Problem Spinal stenosis of lumbar region (49713408) Osseous stenosis of neural canal of lumbar region (M99.33) Added On:06/05 Active confirmed Plan Of Treatment No Information Insurance Providers Payer Name Payer Address Payer Phone Subscriber Number Group Number Insured Name Patient Relationship to Insured Coverage Start Date Coverage End Date Medicare [place] [address] [address] [place] [address] [id number] BO MARTINEZ Self - patient is the insured [facility] [address] [place] [address] [id number] BO MARTINEZ Self - patient is the insured Medical (General) History Medical History History ICD Code Hyperthyroidism Asthma BPH Umbilical hernia Skin cancer Hypothyroidism Surgical History Surgery Date(Month/Year) Bilateral carpal tunnel release 2020
--- OUTSIDE RECORDS SUMMARY | 2025-01-28 23:37 | XMS_ITS | Clinical Summary ---
Author Organization [facility] Address [address] [place] [address] Care Team Providers Care Knit Goods Mender Name Role Phone Jesus Nicole MD Primary Care Provider [phone] Social History Tobacco Use Types Packs/Day Years [...] 75+ series) 12/24/2022 COVID-19 Vaccine ( season) 2024 10/31/2022, 07/02/2022, 10/21/2021, Additional history exists Influenza Adult (#1) 2024 12/02/2021, 11/02/2018, 10/31/2017, Additional history exists Pneumococcal Vaccine: 50+ Years Completed 11/17/2015, 11/14/2014 Hepatitis A Vaccines Aged Out No long er eligible based on patient's age to complete this topic Meningococcal B Vaccine Aged Out No l onger eligible based on patient's age to complete this topic Meningococcal Vaccine Aged Out No justin jennifer eligible based on patient's age to complete this topic RSV Immunizations Under 20 Months Aged Out No longer eligible based on patient's age to complete this topic Insurance MEDICARE [facility] Care Teams Knit Goods Mender Relationship Specialty Start Date End Date Jesus Nicole MD [address] [address] PCP - General INTERNAL MEDICINE 12/08/22
--- OUTSIDE RECORDS SUMMARY | 2025-01-28 23:38 | XMS_ITS | Encounter Summary ---
Author Organization [facility] Address [address] [place] [address] Care Team Providers Care Shank Paperer Name Role Phone Unavailable Primary Care Provider Unavailabl e Encounter Details Date Type Department Care Team (Late st Contact Info) Description 02/24/2023 Lab Requisition [facility] - DermPath Lab [address] [facility] [address] [place] [address] Reena Barton DO [address] [facility] [address] [place] [address] Social History Tobacco Use Types Packs/Day Years [...] Diagnosis Comments DERMATOPATHOLOGY Routine 02/24/2023 8:43 AM RESIDENT IN DIAGNOSTIC RADIOLOGY documented in this encounter Results * DERMATOPATHOLOGY (02/24/2023 8:43 AM RESIDENT IN DIAGNOSTIC RADIOLOGY) Case Report Dermatopathology Report Case: [id number] Authorizing Provider: Reena Barton DO Collected: 02/24/2023 08:43 AM Ordering Location: [facility] DermPath Lab Received: 02/24/2023 01:31 PM Pathologist: Jennifer Galvez MD Specimen: Skin, left upper arm 4 4:06 PM RESIDENT IN DIAGNOSTIC RADIOLOGY DERMATOPATHOLOGY LABORATORY Final Diagnosis Specimen A. SKIN, left upper arm: DERMAL SCAR RESIDUAL SQUAMOUS CELL CARCINOMA IN SITU NOT IDENTIFIED (L90.5) 4 4:06 PM RESIDENT IN DIAGNOSTIC RADIOLOGY DERMATOPATHOLOGY LABORATORY at 1606 RESIDENT IN DIAGNOSTIC RADIOLOGY Clinical History BX proven SCCIS 4 4:06 PM [facility] DERMATOPATHOLOGY LABORATORY Gross Description Specimen A: Received is one formalin filled container labeled with the patient's name and designated left upper arm. The specimen consists of a non-oriented ellipse of skin measuring [id number] mm. The margin is inked green. The 12 o'clock and 6 o'clock tips are submitted in cassette 1. The remainder of the ellipse is serially sectioned and submitted in cassette 2 - 3. Jar 0. 4 4:06 PM [facility] DERMATOPATHOLOGY LABORATORY Microscopic Description Specimen A. SKIN, left upper arm: There are fibroblasts and collagen bundles oriented parallel to the skin surface. There are elongated blood vessels, some of which are oriented perpendicular to the skin surface. No residual squamous cell carcinoma is identified. 4 4:06 PM [facility] DERMATOPATHOLOGY LABORATORY Disclaimer An external and internal positive and negative controls are appropriate for the histochemical, immunohistochemical and immunofluorescence stain(s) in this case (if any), except where stated explicitly. The performance characteristics of the stain(s) cited in this report were developed and its performance characteristic determined by the Dermatopathology Laboratory at [facility], directed by Dr. Rosey Lipscomb. These tests need not be, and therefore are not, approved by the [place] Food and Drug Administration. The tests are used for clinical purposes. Billing Codes Specimen Charges Stain Charges 76798 1 4 4:06 PM [facility] DERMATOPATHOLOGY LABORATORY Embedded Images 4 4:06 PM [facility] DERMATOPATHOLOGY LABORATORY Pathology/Cytolo gy TISSUE SPECIMEN FROM SKIN / Unknown 02/24/2023 8:43 AM RESIDENT IN DIAGNOSTIC RADIOLOGY 02/24/2023 1:31 PM [facility] us Reena Barton DO LAB - PATHOLOGY/CYTOLOGY ORDERABLES Final Result DERMATOPATHOLOGY LABORATORY [facility] - Department of Dermatology [address], [address] [phone] documented in this encounter Visit Diagnoses Not on filedocumented in this encounter
--- OUTSIDE RECORDS SUMMARY | 2025-01-28 23:38 | XMS_ITS | Encounter Summary ---
Author Organization [facility] Address [address] [place] [address] Care Team Providers Care Knot Cutter Name Role Phone Unavailable Primary Care Provider Unavailabl e Encounter Details Date Type Department Care Team (Late st Contact Info) Description 12/29/2022 Lab Requisition [facility] - DermPath Lab [address] [facility] [place] [address] Reena Barton DO [address] [facility] [address] [place] [address] Social History Tobacco Use Types Packs/Day Years [...] Comments DERMATOPATHOLOGY Routine 12/29/2022 10:0 8 AM CANDY DECORATOR documented in this encounter Results * DERMATOPATHOLOGY (12/29/2022 10:08 AM CANDY DECORATOR) Case Report Dermatopathology Report Case: [id number] Authorizing Provider: Reena Barton DO Collected: 12/29/2022 10:08 AM Ordering Location: [facility] DermPath Lab Received: 12/29/2022 03:54 PM Pathologist: Mily Morgan MD Specimen: Skin, left upper arm 3 3:46 PM [facility] DECOR[facility] DERMATOPATHOLOGY LABORATORY Final Diagnosis Specimen A. 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 The specimen consists of a shave biopsy measuring 7x6x1 mm. Jar 0. 3 3:46 PM [facility] DERMATOPATHOLOGY LABORATORY Microscopic Description Specimen A. SKIN, left upper arm: The epidermis shows parakeratosis, full thickness disorderly maturation of keratinocytes, mitoses at different levels, and dyskeratotic cells. 3 3:46 PM [facility] DERMATOPATHOLOGY LABORATORY Disclaimer An external and internal positive and negative controls are appropriate for the histochemical, immunohistochemical and immunofluorescence stain(s) in this case (if any), except where stated explicitly. The performance characteristics of the stain(s) cited in this report were developed and its performance characteristic determined by the Dermatopathology Laboratory at [facility], directed by Dr. Rosey Lipscomb. These tests need not be, and therefore are not, approved by the [place] Food and Drug Administration. The tests are used for clinical purposes. Billing Codes Specimen Charges Stain Charges 12167 1 3 3:46 PM [facility] DERMATOPATHOLOGY LABORATORY Embedded Images 3 3:46 PM [facility] DERMATOPATHOLOGY LABORATORY Pathology/Cytolo gy TISSUE SPECIMEN FROM SKIN / Unknown 12/29/2022 10:08 AM CANDY DECORATOR 12/29/2022 3:54 PM [facility] us Reena Barton DO LAB - PATHOLOGY/CYTOLOGY ORDERABLES Final Result DERMATOPATHOLOGY LABORATORY [facility] - Department of Dermatology [address] [place] [address], [facility] [phone] documented in this encounter Visit Diagnoses Not on filedocumented in this encounter
--- OUTSIDE RECORDS SUMMARY | 2025-01-28 23:38 | XMS_ITS | Data Portability ---
Author Organization [place] [facility] [facility], Main Office Address [address] [place] [address] Care Team Providers Care Junior Architect Name Role Phone JEM NICOLE Primary Care [...] of the hip without discomfort. He has pbhq-hk-bmrdnea e edema in the left lower extremity [...] treatment patient more than half of this lioe-bq-elat conversation [email or web address] Not available 01/08/2023 10:29:04 Plan of Treatment Reminders Order Date Submit Date Provider Last Modified By Organization Details Last Modified Time Details Appointments None recorded. Lab PSA, serum or plasma 2024 025 [employer] [facility], [address], [address], [place], [address], 5 08:14:30 lipid panel, serum 2024 025 [email or web address] [facility], [address], [address], [place], [address], 5 08:18:55 lipid panel, serum 2024 025 [employer] [facility], [address], [address], [place], [address], 5 08:14:24 CMP, serum or plasma 2024 025 [employer] [facility], [address], [place], [address], 5 08:14:26 TSH, serum or plasma 2024 025 [employer] [facility], [address], [address], [place], [address], 5 08:14:29 CBC w/ auto diff 2024 025 [employer] [facility], [address], [place], [address], 5 08:14:27 T4, free, serum 2024 025 [employer] [facility], [address], [place], [address], 5 08:14:28 lipoprotein a, qn, serum 2024 025 [employer] [facility], [address], [place], [address], 5 08:14:31 TSH, serum or plasma 2023 024 [employer] [facility], [address], [place], [address], 4 04:15:03 T4, free, serum 2023 024 [employer] [facility], [address], [place], [address], 4 04:15:01 lipid panel, serum 2023 024 [employer] [facility], [address], [place], [address], 4 04:14:57 CMP, serum or plasma 2023 024 [employer] [facility], [address], [place], [address], 4 04:14:59 CBC w/ auto diff 2023 024 [employer] [facility], [address], [place], [address], 4 04:15:00 Referral None recorded. Procedures None recorded. Surgeries None recorded. Imaging XR, hip + pelvis, unilateral 2022 023 [email or web address] [facility], [address], [place], [address], 3 11:34:53 Medication Orders None recorded. Patient TargetsNo targets recorded. Patient Instructions Encounter Date Encounter Id Patient Instructions Last Modified By Organization Details Last Modified Time 06/24/2023 [id number] Follow-up hypertension, hypothyroidism, hyperlipidemia, asthma, cervical radiculopathy [...] with voice recognition software. Occasional wrong-word or s ound-a-like substitutions may have occurred due to the inherent limitations of voice recognition software. Read the chart carefully and recognize, using context, where substitutions have occurred. [email or web address] Not available 06/24/2023 10:39:03 12/23/2023 [id number] dementia rating scale-2* [email or web address] Not available 12/23/2023 11:11:25 alcohol misuse* [email or web address] Not available 12/23/2023 11:11:25 depression screening* [email or web address] Not available 12/23/2023 11:11:25 multi-dimensiona l health assessment questionnaire* [email or web address] Not available 12/23/2023 11:11:25 Personalized a lt Plan and Screening Recommendations Advance Directives [...] Depression Screening: Negative I have no recommendations [email or web address] Not available 12/23/2023 11:01:58 Medicare wellnes s [...] Follow Up: 6 Months Approximate Date: 06/20/2024 [email or web address] Not available 12/23/2023 11:11:04 06/22/2024 [id number] Follow-up essent ial hypertension, hyperlipidemia, hypothyroidism as well as asthma. Check blood work consisting of CBC, CMP, lipid, thyroid, Lipoprotein A and PSA. Continue on current medications follow-up in six months Portions of record are template driven. When necessary additional context will be provided. Additionally some portions have been created with voice recognition software. Occasional wrong-word or s ound-a-like substitutions may have occurred due to the inherent limitations of voice recognition software. Read the chart carefully and recognize, using context, where substitutions may have occurred. Created: Jem Nicole M.D. 06.22.2024 09:53 AM Not available 06/22/2024 10:53:07 12/28/2024 [id number] Medicare wellnes s evaluation risk assessment stable. Follow-up for hypertension, hyperlipidemia, acquired hypothyroidism, benign prostatic hypertrophy and asthma all clinically stable. Does not need any blood work. Will set up with a urologist because of some increasing urological symptomatology. To discuss about possibly following up with Cardiology since he does have a high lipoprotein a level. Although was clean as far as any major coronary artery disease several years ago. Will continue on current Rx follow-up in six months Advised on FDA Recommended Immunizations including but not limited to Influenza, COVID,Tetanus,TDAP, Pneumococcal,RSV and Shingles Additional Orders - Directives - Recommendations 1. Needs an appointment with one of the urologists up at [facility] has seen in the past for increasing degrees of obstructive uropathy 2. would consider possibly seeing Cardiology for follow-up to see if any additional testing is necessary at this time. Recommended Testing Immunizations and Vaccines 1. 2023-12 INFLUENZA 2. 2023-12 COVID BOOSTER MODERNA 3. PCV20 or PCV21 Recommended 4. RSV Recommended 5. Shingrix Recommended Recommended Vaccine and Immunizations Discussed With Patient! Follow Up: 5 Months Approximate Date: 05/27/2025 Portions of record are template driven. When necessary additional context will be provided. Additionally some portions have been created with voice recognition software. Occasional wrong-word or s ound-a-like substitutions may have occurred due to the inherent limitations of voice recognition software. Read the chart carefully and recognize, using context, where substitutions may have occurred. Created: Jem Nicole M.D. 12.28.2024 10:19 AM [email or web address] Not available 12/28/2024 11:19:57 Reason for Referral None Reported. Results Created Date Observation Date Name Description Value Unit Range Abnormal Flag Note LastModifiedBy Organization Detail LastModifiedTime 01/29/2002/02/2023 LIPID PANEL , STAND GOPAL cholesterol, total 209 mg/dL <200 high Not Available [address] [address] [place], [address], 02/02/2023 18:36:29 01/29/20 23 02/02/2023 LIPID PANEL , STAND GOPAL HDL cholesterol 65 mg/dL > or = 40 normal Not Available [address], [address], 02/02/2023 18:36:29 01/29/20 23 02/02/2023 LIPID PANEL , STAND GOPAL triglyceride s 90 mg/dL <150 normal Not Available [employer] [address], [address], 02/02/2023 18:36:29 01/29/20 23 02/02/2023 LIPID PANEL , STAND GOPAL LDL-choleste rol 125 mg/dL _(quintin c) high Refer ence range : <100 Paola able range <100 mg/dL for prima ry preve ntion ; <70 mg/dL for patie nts with CHD or diabe tic patie nts with > or = 2 CHD risk facto rs. LDL-C is now calcu lated using the [facility] n-Hop toney brewer n, which is a valid ated novel metho d provi ding sekou r accur acy than the Fried krissy equat ion in the estim ation of LDL-C . Unique holman SS et al. MARIANO. 2013; 310(1 9): 2061- 2068 (http ://ed ucati on.Qu estDi Scripteds. com/f aq/FA Q164) Not Available [facility] [address] [address] [place], [address], 02/02/2023 18:36:29 01/29/20 23 02/02/2023 LIPID PANEL , STAND GOPAL chol/HDLC ratio 3.2 (calc ) <5.0 normal Not Available [facility] [address] [address] [address], [place], [address], 02/02/2023 18:36:29 01/29/2002/02/2023 LIPID PANEL , STAND GOPAL non HDL cholesterol 144 mg/dL _(quintin c) <130 high For patie nts with diabe mahesh plus 1 major ASCVD risk facto r, treat ing to a non-H DL-C goal of <100 mg/dL (LDL- C of <70 mg/dL ) is consi dered a thera peuti c optio n. Not Available [facility] [address] [address] [address] , [place], [address], 02/02/2023 18:36:29 01/29/2002/02/2023 COMPR EHENS GENEVIEVE METAB OLIC PANEL glucose 105 mg/dL 65-99 high Fasti ng refer ence inter cruz For someo ne witho ut known diabe mahesh, a gluco se value betwe en 100 and 125 mg/dL is consi stent with predi abete s and shoul d be confi rmed with a follo w-up test. Not Available [facility] [address] [address] [address], [place], [address], 02/02/2023 18:36:30 01/29/20 23 02/02/2023 COMPR EHENS GENEVIEVE METAB OLIC PANEL urea nitrogen (BUN) 15 mg/dL 7-25 normal Not Available [address], [address], 02/02/2023 18:36:30 01/29/20 23 02/02/2023 COMPR EHENS GENEVIEVE METAB OLIC PANEL creatinine 0.90 mg/dL 0.70-1 .28 normal Not Available [address], [address], 02/02/2023 18:36:30 01/29/20 23 02/02/2023 COMPR EHENS GENEVIEVE METAB OLIC PANEL eGFR 89 mL/mi n/1.7 3m2 > or = 60 normal Not Available [address], [address], 02/02/2023 18:36:30 01/29/20 23 02/02/2023 COMPR EHENS GENEVIEVE METAB OLIC PANEL BUN/creatini ne ratio SEE NOTE: (calc ) 6-22 Not Repor ligia: BUN and Creat inine are withi n refer ence range . Not Available [address], [address], 02/02/2023 18:36:30 01/29/20 23 02/02/2023 COMPR EHENS GENEVIEVE METAB OLIC PANEL sodium 140 mmol/ L 135-14 6 normal Not Available [address], [address], 02/02/2023 18:36:30 01/29/20 23 02/02/2023 COMPR EHENS GENEVIEVE METAB OLIC PANEL potassium 4.3 mmol/ L 3.5-5. 3 normal Not Available [address], [address], 02/02/2023 18:36:30 01/29/20 23 02/02/2023 COMPR EHENS GENEVIEVE METAB OLIC PANEL chloride 104 mmol/ L 98-110 normal Not Available [address], [address], 02/02/2023 18:36:30 01/29/20 23 02/02/2023 COMPR EHENS GENEVIEVE METAB OLIC PANEL carbon dioxide 28 mmol/ L 20-32 normal Not Available [address], [address], 02/02/2023 18:36:30 01/29/20 23 02/02/2023 COMPR EHENS GENEVIEVE METAB OLIC PANEL calcium 9.2 mg/dL 8.6-10 .3 normal Not Available [address], [address], 02/02/2023 18:36:30 01/29/20 23 02/02/2023 COMPR EHENS GENEVIEVE METAB OLIC PANEL protein, total 7.0 g/dL 6.1-8. 1 normal Not Available [address], [address], 02/02/2023 18:36:30 01/29/20 23 02/02/2023 COMPR EHENS GENEVIEVE METAB OLIC PANEL albumin 4.3 g/dL 3.6-5. 1 normal Not Available [address], [address], 02/02/2023 18:36:30 01/29/20 23 02/02/2023 COMPR EHENS GENEVIEVE METAB OLIC PANEL globulin 2.7 g/dL_ (calc ) 1.9-3. 7 normal Not Available [address], [address], 02/02/2023 18:36:30 01/29/20 23 02/02/2023 COMPR EHENS GENEVIEVE METAB OLIC PANEL albumin/glob ulin ratio 1.6 (calc ) 1.0-2. 5 normal Not Available [address], [address], 02/02/2023 18:36:30 01/29/20 23 02/02/2023 COMPR EHENS GENEVIEVE METAB OLIC PANEL bilirubin, total 0.6 mg/dL 0.2-1. 2 normal Not Available [address] [address] [place], [address], 02/02/2023 18:36:30 01/29/20 23 02/02/2023 COMPR EHENS GENEVIEVE METAB OLIC PANEL alkaline phosphatase 63 U/L 35-144 normal Not Available [facility] [employer] [address] [address] [place], [address], 02/02/2023 18:36:30 01/29/20 23 02/02/2023 COMPR EHENS GENEVIEVE METAB OLIC PANEL AST 18 U/L 10-35 normal Not Available [address] [address] [place], [address], 02/02/2023 18:36:30 01/29/20 23 02/02/2023 COMPR EHENS GENEVIEVE METAB OLIC PANEL ALT 13 U/L 9-46 normal Not Available [address] [address] [place], [address], 02/02/2023 18:36:30 01/29/20 23 02/02/2023 PSA, POST- [...] This test was perfo rmed using the [facility] an Coult er DxI metho d. PSA, [...] javier silva of PSA level s at [facility], along with physi quintin exami natio ns and other tests , may help to detec t recur rent prost ate cance r. Not Available [facility] [address] [address] [place], [address], 02/02/2023 18:36:31 12/27/19 24 12/28/2023 LIPID PANEL , STAND GOPAL cholesterol, total 192 mg/dL <200 normal Not Available [facility] [address] [address] [place], [address], 12/28/2023 04:14:57 12/27/19 24 12/28/2023 LIPID PANEL , STAND GOPAL HDL cholesterol 60 mg/dL > or = 40 normal Not Available [facility] [address], [address], 12/28/2023 04:14:57 12/27/19 24 12/28/2023 LIPID PANEL , STAND GOPAL triglyceride s 80 mg/dL <150 normal Not Available [facility] [address], [address], 12/28/2023 04:14:57 12/27/19 24 12/28/2023 LIPID PANEL [...] lated using the Unique n-Hop kins calcu latbernadette n, which is a valid ated novel metho d provi ding sekou r accur acy than the Fried krissy equat ion in the estim ation of LDL-C . Unique n SS et al. MARIANO. 2013; 310(1 9): 2061- 2068 (http ://ed ucati on.Qu Carson gonzalez Tradorias. com/f aq/FA Q164) Not Available [facility] [address] [address] [place], [address], 12/28/2023 04:14:57 12/27/19 24 12/28/2023 LIPID PANEL , STAND GOPAL chol/HDLC ratio 3.2 (calc ) <5.0 normal Not Available [address] [address] , [place], [address], 12/28/2023 04:14:57 12/27/19 24 12/28/2023 LIPID PANEL , STAND GOPAL non HDL cholesterol 132 mg/dL _(quintin c) <130 high For patie nts with diabe mahesh plus 1 major ASCVD risk facto r, treat ing to a non-H DL-C goal of <100 mg/dL (LDL- C of <70 mg/dL ) is consi dered a thera peuti c optio n. Not Available [address] [address] , [place], [address], 12/28/2023 04:14:57 12/27/19 24 12/28/2023 COMPR EHENS GENEVIEVE METAB OLIC PANEL glucose 107 mg/dL 65-99 high Fasti ng refer ence inter cruz For someo ne witho ut known diabe mahesh, a gluco se value betwe en 100 and 125 mg/dL is consi stent with predi abete s and shoul d be confi rmed with a follo w-up test. Not Available [address] [address] [place], [address], 12/28/2023 04:14:59 12/27/19 24 12/28/2023 COMPR EHENS GENEVIEVE METAB OLIC PANEL urea nitrogen (BUN) 17 mg/dL 7-25 normal Not Available [address] [address] [place], [address], 12/28/2023 04:14:59 12/27/19 24 12/28/2023 COMPR EHENS GENEVIEVE METAB OLIC PANEL creatinine 0.88 mg/dL 0.70-1 .28 normal Not Available [address], [address], 12/28/2023 04:14:59 12/27/19 24 12/28/2023 COMPR EHENS GENEVIEVE METAB OLIC PANEL eGFR 89 mL/mi n/1.7 3m2 > or = 60 normal Not Available [address], [address], 12/28/2023 04:14:59 12/27/19 24 12/28/2023 COMPR EHENS GENEVIEVE METAB OLIC PANEL BUN/creatini ne ratio SEE NOTE: (calc ) 6-22 Not Repor ligia: BUN and Creat inine are withi n refer ence range . Not Available [address], [address], 12/28/2023 04:14:59 12/27/19 24 12/28/2023 COMPR EHENS GENEVIEVE METAB OLIC PANEL sodium 140 mmol/ L 135-14 6 normal Not Available [address], [address], 12/28/2023 04:14:59 12/27/19 24 12/28/2023 COMPR EHENS GENEVIEVE METAB OLIC PANEL potassium 4.6 mmol/ L 3.5-5. 3 normal Not Available [address], [address], 12/28/2023 04:14:59 12/27/19 24 12/28/2023 COMPR EHENS GENEVIEVE METAB OLIC PANEL chloride 105 mmol/ L 98-110 normal Not Available [facility] [address], [address], 12/28/2023 04:14:59 12/27/19 24 12/28/2023 COMPR EHENS GENEVIEVE METAB OLIC PANEL carbon dioxide 29 mmol/ L 20-32 normal Not Available [address], [address], 12/28/2023 04:14:59 12/27/19 24 12/28/2023 COMPR EHENS GENEVIEVE METAB OLIC PANEL calcium 9.1 mg/dL 8.6-10 .3 normal Not Available [address], [address], 12/28/2023 04:14:59 12/27/19 24 12/28/2023 COMPR EHENS GENEVIEVE METAB OLIC PANEL protein, total 6.5 g/dL 6.1-8. 1 normal Not Available [address], [address], 12/28/2023 04:14:59 12/27/19 24 12/28/2023 COMPR EHENS GENEVIEVE METAB OLIC PANEL albumin 4.0 g/dL 3.6-5. 1 normal Not Available [address], [address], 12/28/2023 04:14:59 12/27/19 24 12/28/2023 COMPR EHENS GENEVIEVE METAB OLIC PANEL globulin 2.5 g/dL_ (calc ) 1.9-3. 7 normal Not Available [address], [address], 12/28/2023 04:14:59 12/27/19 24 12/28/2023 COMPR EHENS GENEVIEVE METAB OLIC PANEL albumin/glob ulin ratio 1.6 (calc ) 1.0-2. 5 normal Not Available [address], [address], 12/28/2023 04:14:59 12/27/19 24 12/28/2023 COMPR EHENS GENEVIEVE METAB OLIC PANEL bilirubin, total 0.5 mg/dL 0.2-1. 2 normal Not Available [address], [address], 12/28/2023 04:14:59 12/27/19 24 12/28/2023 COMPR EHENS GENEVIEVE METAB OLIC PANEL alkaline phosphatase 58 U/L 35-144 normal Not Available [address] [address] [place], [address], 12/28/2023 04:14:59 12/27/19 24 12/28/2023 COMPR EHENS GENEVIEVE METAB OLIC PANEL AST 23 U/L 10-35 normal Not Available [address], [address], 12/28/2023 04:14:59 12/27/19 24 12/28/2023 COMPR EHENS GENEVIEVE METAB OLIC PANEL ALT 16 U/L 9-46 normal Not Available [address], [address], 12/28/2023 04:14:59 12/27/19 24 12/28/2023 CBC (INCL UDES DIFF/ PLT) white blood cell count 6.2 thous and/u L 3.8-10 .8 normal Not Available [address], [address], 12/28/2023 04:15:00 12/27/19 24 12/28/2023 CBC (INCL UDES DIFF/ PLT) red blood cell count 4.69 abigail on/uL 4.20-5 .80 normal Not Available [address], [address], 12/28/2023 04:15:00 12/27/19 24 12/28/2023 CBC (INCL UDES DIFF/ PLT) hemoglobin 13.9 g/dL 13.2-1 7.1 normal Not Available [address], [address], 12/28/2023 04:15:00 12/27/19 24 12/28/2023 CBC (INCL UDES DIFF/ PLT) hematocrit 42.8 % 38.5-5 0.0 normal Not Available [address], [address], 12/28/2023 04:15:00 12/27/1912/28/2023 CBC (INCL UDES DIFF/ PLT) MCV 91.3 fL 80.0-1 00.0 normal Not Available [address], [address], 12/28/2023 04:15:00 12/27/1912/28/2023 CBC (INCL UDES DIFF/ PLT) MCH 29.6 pg 27.0-3 3.0 normal Not Available [address], [address], 12/28/2023 04:15:00 12/27/1912/28/2023 CBC (INCL UDES DIFF/ PLT) MCHC 32.5 g/dL 32.0-3 6.0 normal For adult s, a sligh t decre ase in the calcu lated MCHC value (in the range of 30 to 32 g/dL) is most likel y not clini parisa signi kris t; stefani er, it shoul d be inter prete d with cauti on in corre latio n with other red cell zac eters and the patie nt's clini quintin condi tion. Not Available [address], [address], 12/28/2023 04:15:00 12/27/1912/28/2023 CBC (INCL UDES DIFF/ PLT) RDW 12.3 % 11.0-1 5.0 normal Not Available [address] [place], [address], 12/28/2023 04:15:00 12/27/19 24 12/28/2023 CBC (INCL UDES DIFF/ PLT) platelet count 261 thous and/u L 140-40 0 normal Not Available [address], [address], 12/28/2023 04:15:00 12/27/1912/28/2023 CBC (INCL UDES DIFF/ PLT) MPV 10.4 fL 7.5-12 .5 normal Not Available [address], [address], 12/28/2023 04:15:00 12/27/1912/28/2023 CBC (INCL UDES DIFF/ PLT) absolute neutrophils 3993 cells /uL 1500-7 800 normal Not Available [address], [address], 12/28/2023 04:15:00 12/27/19 24 12/28/2023 CBC (INCL UDES DIFF/ PLT) absolute lymphocytes 1277 cells /uL 850-39 00 normal Not Available [address], [address], 12/28/2023 04:15:00 12/27/1912/28/2023 CBC (INCL UDES DIFF/ PLT) absolute monocytes 471 cells /uL 200-95 0 normal Not Available [address], [address], 12/28/2023 04:15:00 12/27/1912/28/2023 CBC (INCL UDES DIFF/ PLT) absolute eosinophils 409 cells /uL 15-500 normal Not Available [address], [address], 12/28/2023 04:15:00 12/27/19 24 12/28/2023 CBC (INCL UDES DIFF/ PLT) absolute basophils 50 cells /uL 0-200 normal Not Available [address], [address], 12/28/2023 04:15:00 12/27/19 24 12/28/2023 CBC (INCL UDES DIFF/ PLT) neutrophils 64.4 % normal Not Available [address], [address], 12/28/2023 04:15:00 12/27/1912/28/2023 CBC (INCL UDES DIFF/ PLT) lymphocytes 20.6 % normal Not Available [address], [address], 12/28/2023 04:15:00 12/27/19 24 12/28/2023 CBC (INCL UDES DIFF/ PLT) monocytes 7.6 % normal Not Available [address], [address], 12/28/2023 04:15:00 12/27/19 24 12/28/2023 CBC (INCL UDES DIFF/ PLT) eosinophils 6.6 % normal Not Available [address], [address], 12/28/2023 04:15:00 12/27/1912/28/2023 CBC (INCL UDES DIFF/ PLT) basophils 0.8 % normal Not Available [address], [address], 12/28/2023 04:15:00 12/27/1912/28/2023 T4, FREE T4, free 1.3 NG/dL 0.8-1. 8 normal Not Available [address], [address], 12/28/2023 04:15:01 12/27/19 24 12/28/2023 TSH TSH 0.84 mIU/L 0.40-4 .50 normal Not Available [facility] [address] [address], [place], [address], 12/28/2023 04:15:03 12/31/19 24 12/31/2023 COLOG UARD [...] of ,00 0 ind[place]ual [place] risk for color ectal cance r who were scree bonny with both Colog uard and colon oscop y. (Bharathi Brown. et al, N Engl J Med 2014; 370(1 4):12 86-12 97) The mary l value (refe rence range ) for this assay is negat genevieve. COLOG UARD RE-SC REENI NG RECOM MENDA TION: Perio dic color ectal cance r scree caitie is an impor tant part of preve ntive healt hcare for asymp tomat ic indiv idual s at [place] risk for color ectal cance r. [...] s-rec ommen datio ns.ht ml.; Kyler QUEVEDO, Allen MCCABE, Rajat MUNOZ, Color ectal Cance r Scree caitie: Recom menda tions for Physi cians and Patie nts from the [place]. Multi -Soci ety Task Force on Color ectal Cance r Scree caitie , Grant graceog y 2017; 112:1 016-1 030. TEST DESCR IPTIO N: [place] site algor ithmi c alhaji sis of [...] years or older , who are at [facility] for color ectal cance r (CRC) . Colog uard has been appro jacob for use by the U.[place]. FDA. The perfo rmanc e of Colog uard was estab lishe d in a cross secti onal study of [facility] adult s aged 50-84 . Colog uard perfo rmanc e in patie nts ages 45 to 49 years was estim ated by sub-g roup alhaji sis of near- age group s. Colon oscop ies perfo rmed for a posit genevieve resul t may find as the most clini parisa signi kris t lesio n: color ectal cance r [...] of 10,00 0 indiv idual s at [facility] for color ectal cance r who were [...] wing locat ion: www.e xactl abs.c om/re sulaftab . Addit ional descr iptio n of the Colog uard test proce ss, warni ngs and preca ution s can be found at www.c lisbet bradfordd.c om. Not Available [facility] [address], [place], [address], 01/09/2024 03:21:14 06/28/19 25 06/29/2024 LIPID PANEL , STAND GOPAL cholesterol, total 195 mg/dL <200 normal Not Available [facility] [address] [place], [address], 06/29/2024 08:14:24 06/28/19 25 06/29/2024 LIPID PANEL , STAND GOPAL HDL cholesterol 61 mg/dL > or = 40 normal Not Available [facility] [address] [place], [address], 06/29/2024 08:14:24 06/28/19 25 06/29/2024 LIPID PANEL , STAND GOPAL triglyceride s 75 mg/dL <150 normal Not Available [facility] [address] [address] [place], [address], 06/29/2024 08:14:24 06/28/19 25 06/29/2024 LIPID PANEL [...] lated using the Unique n-Hop kins calcu latbernadette n, which is a valid ated novel sergey pichardo accur acpako than the Fried krissy equat ion in the estim ation of LDL-C . Unique holman SS et al. MARIANO. 2013; 310(1 9): 2061- 2068 (http ://ed ucati on.NCR [employer] juanElectrikus. com/f aq/FA Q164) Not Available [facility] [place] [address] [place], [address], 06/29/2024 08:14:24 06/28/19 25 06/29/2024 LIPID PANEL , STAND GOPAL chol/HDLC ratio 3.2 (calc ) <5.0 normal Not Available [facility] [address] [place], [address], 06/29/2024 08:14:24 06/28/19 25 06/29/2024 LIPID PANEL , STAND GOPAL non HDL cholesterol 134 mg/dL _(quintin c) <130 high For patie nts with diabe mahesh plus 1 major ASCVD risk facto r, treat ing to a non-H DL-C goal of <100 mg/dL (LDL- C of <70 mg/dL ) is rosi nino optio n. Not Available [facility] [address] [place], [address], 06/29/2024 08:14:24 06/28/19 06/29/2024 COMPR EHENS GENEVIEVE METAB OLIC PANEL glucose 107 mg/dL 65-99 high Fasti ng refer ence inter cruz For someo ne witho ut known diabe mahesh, a gluco se value betwe en 100 and 125 mg/dL is consi stent with predi abete s and shoul d be confi rmed with a follo w-up test. Not Available [address], [address], 06/29/2024 08:14:26 06/28/1906/29/2024 COMPR EHENS GENEVIEVE METAB OLIC PANEL urea nitrogen (BUN) 15 mg/dL 7-25 normal Not Available [address], [address], 06/29/2024 08:14:26 06/28/19 25 06/29/2024 COMPR EHENS GENEVIEVE METAB OLIC PANEL creatinine 0.88 mg/dL 0.70-1 .28 normal Not Available [address], [address], 06/29/2024 08:14:26 06/28/19 25 06/29/2024 COMPR EHENS GENEVIEVE METAB OLIC PANEL eGFR 89 mL/mi n/1.7 3m2 > or = 60 normal Not Available [address], [address], 06/29/2024 08:14:26 06/28/19 25 06/29/2024 COMPR EHENS GENEVIEVE METAB OLIC PANEL BUN/creatini ne ratio SEE NOTE: (calc ) 6-22 Not Repor ligia: BUN and Creat inine are withi n refer ence range . Not Available [address], [address], 06/29/2024 08:14:26 06/28/19 25 06/29/2024 COMPR EHENS GENEVIEVE METAB OLIC PANEL sodium 142 mmol/ L 135-14 6 normal Not Available [address], [address], 06/29/2024 08:14:26 06/28/19 25 06/29/2024 COMPR EHENS GENEVIEVE METAB OLIC PANEL potassium 4.2 mmol/ L 3.5-5. 3 normal Not Available [address], [address], 06/29/2024 08:14:26 06/28/19 25 06/29/2024 COMPR EHENS GENEVIEVE METAB OLIC PANEL chloride 107 mmol/ L 98-110 normal Not Available [address], [address], 06/29/2024 08:14:26 06/28/19 25 06/29/2024 COMPR EHENS GENEVIEVE METAB OLIC PANEL carbon dioxide 27 mmol/ L 20-32 normal Not Available [address], [address], 06/29/2024 08:14:26 06/28/19 25 06/29/2024 COMPR EHENS GENEVIEVE METAB OLIC PANEL calcium 9.0 mg/dL 8.6-10 .3 normal Not Available [address], [address], 06/29/2024 08:14:26 06/28/19 25 06/29/2024 COMPR EHENS GENEVIEVE METAB OLIC PANEL protein, total 6.6 g/dL 6.1-8. 1 normal Not Available [address], [address], 06/29/2024 08:14:26 06/28/19 25 06/29/2024 COMPR EHENS GENEVIEVE METAB OLIC PANEL albumin 4.1 g/dL 3.6-5. 1 normal Not Available [address], [address], 06/29/2024 08:14:26 06/28/19 25 06/29/2024 COMPR EHENS GENEVIEVE METAB OLIC PANEL globulin 2.5 g/dL_ (calc ) 1.9-3. 7 normal Not Available [address], [address], 06/29/2024 08:14:26 06/28/19 25 06/29/2024 COMPR EHENS GENEVIEVE METAB OLIC PANEL albumin/glob ulin ratio 1.6 (calc ) 1.0-2. 5 normal Not Available [address], [address], 06/29/2024 08:14:26 06/28/19 25 06/29/2024 COMPR EHENS GENEVIEVE METAB OLIC PANEL bilirubin, total 0.5 mg/dL 0.2-1. 2 normal Not Available [address], [address], 06/29/2024 08:14:26 06/28/19 25 06/29/2024 COMPR EHENS GENEVIEVE METAB OLIC PANEL alkaline phosphatase 62 U/L 35-144 normal Not Available [address], [address], 06/29/2024 08:14:26 06/28/19 25 06/29/2024 COMPR EHENS GENEVIEVE METAB OLIC PANEL AST 21 U/L 10-35 normal Not Available [address], [address], 06/29/2024 08:14:26 06/28/19 25 06/29/2024 COMPR EHENS GENEVIEVE METAB OLIC PANEL ALT 16 U/L 9-46 normal Not Available [address], [address], 06/29/2024 08:14:26 06/28/19 25 06/29/2024 CBC (INCL UDES DIFF/ PLT) white blood cell count 6.9 thous and/u L 3.8-10 .8 normal Not Available [address], [place], [address], 06/29/2024 08:14:27 06/28/1906/29/2024 CBC (INCL UDES DIFF/ PLT) red blood cell count 4.60 abigail on/uL 4.20-5 .80 normal Not Available [facility] [address], [address], 06/29/2024 08:14:27 06/28/1906/29/2024 CBC (INCL UDES DIFF/ PLT) hemoglobin 13.5 g/dL 13.2-1 7.1 normal Not Available [address], [address], 06/29/2024 08:14:27 06/28/1906/29/2024 CBC (INCL UDES DIFF/ PLT) hematocrit 43.1 % 38.5-5 0.0 normal Not Available [address], [address], 06/29/2024 08:14:27 06/28/1906/29/2024 CBC (INCL UDES DIFF/ PLT) MCV 93.7 fL 80.0-1 00.0 normal Not Available [facility] [address], [address], 06/29/2024 08:14:27 06/28/1906/29/2024 CBC (INCL UDES DIFF/ PLT) MCH 29.3 pg 27.0-3 3.0 normal Not Available [facility] [address], [address], 06/29/2024 08:14:27 06/28/1906/29/2024 CBC (INCL UDES DIFF/ PLT) MCHC 31.3 g/dL 32.0-3 6.0 low For adult s, a sligh t decre ase in the calcu lated MCHC value (in the range of 30 to 32 g/dL) is most likel y not clini parisa signi kris t; stefani er, it shoul d be inter prete d with cauti on in corre latio n with other red cell zac eters and the patie nt's clini quintin condi tion. Not Available [facility] [address], [address], 06/29/2024 08:14:27 06/28/1906/29/2024 CBC (INCL UDES DIFF/ PLT) RDW 12.7 % 11.0-1 5.0 normal Not Available [facility] [address], [address], 06/29/2024 08:14:27 06/28/19 25 06/29/2024 CBC (INCL UDES DIFF/ PLT) platelet count 249 thous and/u L 140-40 0 normal Not Available [facility] [address], [address], 06/29/2024 08:14:27 06/28/19 25 06/29/2024 CBC (INCL UDES DIFF/ PLT) MPV 10.7 fL 7.5-12 .5 normal Not Available [address], [address], 06/29/2024 08:14:27 06/28/19 25 06/29/2024 CBC (INCL UDES DIFF/ PLT) absolute neutrophils 4533 cells /uL 1500-7 800 normal Not Available [facility] [address], [address], 06/29/2024 08:14:27 06/28/19 25 06/29/2024 CBC (INCL UDES DIFF/ PLT) absolute lymphocytes 1449 cells /uL 850-39 00 normal Not Available [address], [address], 06/29/2024 08:14:27 06/28/19 25 06/29/2024 CBC (INCL UDES DIFF/ PLT) absolute monocytes 518 cells /uL 200-95 0 normal Not Available [facility] [address], [address], 06/29/2024 08:14:27 06/28/19 25 06/29/2024 CBC (INCL UDES DIFF/ PLT) absolute eosinophils 373 cells /uL 15-500 normal Not Available [facility] [address], [address], 06/29/2024 08:14:27 06/28/19 25 06/29/2024 CBC (INCL UDES DIFF/ PLT) absolute basophils 28 cells /uL 0-200 normal Not Available [facility] [address], [address], 06/29/2024 08:14:27 06/28/19 25 06/29/2024 CBC (INCL UDES DIFF/ PLT) neutrophils 65.7 % normal Not Available [facility] [address], [address], 06/29/2024 08:14:27 06/28/19 25 06/29/2024 CBC (INCL UDES DIFF/ PLT) lymphocytes 21.0 % normal Not Available [facility] [address], [address], 06/29/2024 08:14:27 06/28/19 25 06/29/2024 CBC (INCL UDES DIFF/ PLT) monocytes 7.5 % normal Not Available [facility] [address], [address], 06/29/2024 08:14:27 06/28/19 25 06/29/2024 CBC (INCL UDES DIFF/ PLT) eosinophils 5.4 % normal Not Available [facility] [address], [address], 06/29/2024 08:14:27 06/28/19 25 06/29/2024 CBC (INCL UDES DIFF/ PLT) basophils 0.4 % normal Not Available [facility] [address] [address] [place], [address], 06/29/2024 08:14:27 06/28/1906/29/2024 T4, FREE T4, free 1.4 NG/dL 0.8-1. 8 normal Not Available [facility] [address] [address] [place], [address], 06/29/2024 08:14:28 06/28/1906/29/2024 TSH TSH 0.32 mIU/L 0.40-4 .50 low Not Available [facility] [address] [address] [place], [address], 06/29/2024 08:14:29 06/28/1906/29/2024 PSA, TOTAL PSA, total [...] This test was perfo rmed using the Schooe ns chemi lumin escen t metho d. Value s obtai bonny from diffe rent assay metho ds canno t be used inter roth eably . PSA level s, regar dless of value , shoul d not be inter prete d as absol [place] evide nce of the prese nce or absen ce of disea se. Not Available [facility] [address] [place], [address], 06/29/2024 08:14:30 06/28/1906/29/2024 CARDI O IQ(R) LIPOP ROTEI N (A) lipoprotein (A) 147 nmol/ L <75 high Risk: Optim al <75 nmol/ L; Moder ate 75-12 5 nmol/ L; High >125 nmol/ L. Cardi ovasc ular event risk categ ory cut point s (opti mal, moder ate, high) are based on Jacob Kelly. [facility] 2017; 69:69 2-711 . Not Available [facility] [address], [place], [address], 06/29/2024 08:14:31 01/07/20 23 01/06/2023 US, doppl er, venou s No observ ation record ed. [email or web address] [facility] [address], [place], [address], 03/24/2023 12:56:54 01/09/20 23 XR, hip + pelvi s, unila teral No observ ation record ed. [email or web address] [facility] [place] [address], [place], [address], 01/08/2023 10:27:07 11/02/19 24 XR, shoul alessandro, 2 or more view [facility] [address] [place] [address] Patien t Name: BO SOLORZANO Access ion #: [id number] Sex: M : 1945 8 Dictat [...] at 2023 10:34: 05 AM Page 1 [facility] (Imaging) [address] [place], [address], 11/02/2023 12:39:54 Result Notes Documentation Provider Name and Address Organization Details Recorded Time Xr, Shoulder, 2 Or More View : [facility] [address] [id number] Patient Name: BO DOWNEY Sex: M : [...] body. Page 1 Jem Nicole MD [address] [facility] [address], [address], [facility] 11/02/2023 12:39:54 Problems Name Problem SNOMED Code Status Onset Date Resolution Date Notes Provider Name and Address Organization Details Recorded Time Acquired hypothyroi dism 777092345 Active Not Available [facility] 3 12:43:10 Hyperchole sterolemia 60256943 Active Not Available [facility] 3 12:43:10 Asthma 621597288 Active Not Available [facility] 3 12:43:10 Hyperthyro idism 52927328 Active Not Available [facility] 3 12:43:10 Umbilical hernia 101202704 Active Not Available [facility] 3 12:43:10 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 Not Available [facility] 3 12:43:10 Cervical radiculopa thy 30676096 Active Not Available [facility] 3 12:43:10 Right bundle branch block 54529902 Active Not Available [facility] 3 12:43:10 Benign prostatic hyperplasi a 418107123 Active 2017 Not Available [facility] 3 12:43:10 Disorder of muscle 360587176 Active 2020 Not Available [facility] 3 12:43:10 Sciatica 28891140 Active 2021 Not Available [facility] 3 12:43:10 Pain in lumbar spine 047442511 Active 2021 Not Available [facility] 3 12:43:10 Pain of left hip joint 2238007217787 00 Active 2021 Not Available [facility] 3 12:43:10 Acute ischemic heart disease 620417578 Active 2021 Not Available [facility] 3 12:43:10 Right bundle branch block 87829965 Active 2021 Not Available [facility] 3 12:43:11 Essential hypertensi on 53771237 Active 2021 Not Available [facility] 3 12:43:11 Osteoarthr itis 773398184 Active 2021 Not Available [facility] 3 12:43:10 Cough 22607975 Active 2022 Not Available [facility] 3 12:43:10 Acute bronchitis 29122419 Active 2022 Not Available [facility] 3 12:43:10 Pneumonia 849252404 Active 2022 Not Available [facility] 3 12:43:10 Spinal stenosis in cervical region 66590069 Active 2022 Not Available [facility] 3 12:43:11 Disorder of prostate 54611940 Active 2022 Jem Nicole MD [address] [facility], [address] [address], [place], [address] , [place] [facility] 3 11:54:43 Acquired bilateral pes planus 4317531069732 9109 Active 2022 Kiesha Marx CMA null, [facility] 3 10:12:00 COVID-19 376861202 Active 2023 Jem Nicole MD [address], [place], [address] , [facility] 4 12:42:22 Obese class I 3379141392483 07 Active 2023 Jem Nicole MD [address], [place], [address] , [facility] 4 10:35:57 Pain of right shoulder joint 7567015380514 9100 Active 2023 MALATHI Ling, [facility] 4 11:48:52 Asymmetric al hearing loss 481175874 Active 2024 MALATHI Ling, [facility] 5 15:06:54 Notes:Some problems listed i n Document: #[id number] could not be added to this patient's chart. Please review this document and add these problems to the patient's chart manually as needed. Problem Notes None recorded. Procedures Surgical History Date Name Laterality Status Provider Name and Address Organization Details Recorded Time 4 Medicare Wellness CPT Code, subsequent completed Sara Downey RN [facility] 12/23/2023 10:55:41 3 Medicare Wellness CPT Code, subsequent completed Sara Downey RN [facility] 06/23/2022 10:38:05 hernia repair completed CRISTAL Rodriguez [facility] 01/08/2023 09:45:53 Imaging Results None recorded. [...] t Available levothyroxi ne 150 mcg tablet TAKE 1 TABLET BY MOUTH ONCE DAILY active Not Available Not Available No t Available Advair Diskus 250 mcg-50 mcg/dose powder for [...] 2 PUFFS BY MOUTH 4 TIMES DAILY 2024 active Not Available Not Available Not Avai lable celecoxib 100 mg capsule TAKE 1 CAPSULE BY MOUTH EVERY DAY 01/19 completed Not Available Not Available Not Available ketoconazol e 2 % topical cream APPLY TO AFFECTED AREA(S) OF FEET TWICE DAILY NEEDED active Not Available Not Available No t Available itraconazol e 100 mg capsule Take 2 capsules every day by oral route. 09/17 completed Not Available Not Available Not Available Hibiclens 4 % topical liquid Perform daily total body-wash for 5 days starting 01-01-2201/19 completed Not Available Not Available Not Available amoxicillin 875 mg-duran m clavulanate 125 mg tablet TAKE 1 TABLET BY MOUTH TWICE DAILY FOR 10 DAYS 01/21 completed Not Available Not Available Not Available oxycodone 5 mg tablet TAKE 1 TABLET BY MOUTH EVERY 4 HOURS 01/19 completed Not Available Not Available Not Available ezetimibe 10 mg tablet TAKE 1 TABLET BY MOUTH ONCE DAILY active Not Available Not Available No t Available Nasacort 12/01 completed Not Available Not Available Not Available Symbicort 160 mcg-4.5 mcg/actuati on HFA aerosol inhaler INHALE 2 PUFFS BY MOUTH TWICE DAILY active Not Available Not Available No t Available Eliquis 2.5 mg tablet Take by oral [...] weight Heart rate Body temperature Oxygen saturation Systolic And Diastolic Provider Name and Address Organization Details Last Updated DateTime 5 170.18 cm 32 kg/m2 57780.8 4 g 82 /min 97 [degF] 94 % 120/78 mm[Hg] Virgen Maxwell [facility] 5 10:32:38 Date Recorded Body height Body mass index (BMI) Body weight Heart rate Body temperature Oxygen saturation Systolic And Diastolic Provider Name and Address Organization Details Last Updated DateTime 4 170.18 cm 32.1 kg/m2 68196.4 4 g 75 /min 97.3 [degF] 97 % 126/74 mm[Hg] Roxanna Agustin [facility] 4 10:17:15 Date Recorded Body height Body mass index (BMI) Body weight Heart rate Body temperature Oxygen saturation Systolic And Diastolic Provider Name and Address Organization Details Last Updated DateTime 4 170.18 cm 32 kg/m2 39357.8 4 g 69 /min 97 [degF] 95 % 136/80 mm[Hg] Roxanna Agustin Ursula [facility] 4 10:48:08 Date Recorded Body height Body mass index (BMI) Body weight Heart rate Oxygen saturation Systolic And Diastolic Provider Name and Address Organization Details Last Updated DateTime 5 170.18 cm 30.7 kg/m2 60595.1 g 79 /min 97 % 120/80 mm[Hg] Yumiko Jung [facility] 5 10:49:54 Date Recorded Body height Body mass index (BMI) Body weight Provider Name and Address Organization Details Last Updated DateTime 01/08/2023 170.18 cm 32 kg/m2 [address]245.[address] [facility] 01/08/2023 09:49:24 Social History Question Answer Notes LastModified by Organizat ion Details LastModified Time Tobacco Smoking Status Never Smoker Not Available [facility] 04/08/2022 14:45:24 Do You Have An Advance Directive? Yes [email or web address] Information not available 04/08/2022 Are You Blind Or Do You Have Difficulty Seeing? No MIGRATION. Information not available 04/08/2022 In The 14 Days Before Symptom Onset, Have You Had Close Contact With A Laboratory-confir med COVID-19 While That Case Was Ill? No MIGRATION. Information not available 04/08/2022 In The 14 Days Before Symptom Onset, Have You Had Close Contact With A Person Who Is Under Investigation For COVID-19 While That Person Was Ill? No MIGRATION.[id number] Information not available 04/08/2022 Are You Deaf Or Do You Have Serious Difficulty Hearing? Yes [email or web address] Information not available 12/23/2023 What Type Of Diet Are You Following? REGULAR MIGRATION.27284 81336 Information not available 04/08/2022 Have There Been Any Changes To Your Family Or Social Situation? No MIGRATION.45076 09614 Information not available 04/08/2022 What Is The Fluoride Status Of Your Home? Unknown Information not available 06/23/2022 Are There Any Guns Present In Your Home? No MIGRATION.06922 36562 Information not available 04/08/2022 Do You Use Insect Repellent Routinely? No MIGRATION.22731 [id number] Information not available 04/08/2022 Where Do You Live? [place] MIGRATION.64693 47931 Information not available 04/08/2022 Guns Present In The Home? No [email or web address] Information not available 12/23/2023 Are You Able To Care For Yourself? Yes [email or web address] Information not available 06/23/2022 Are You Blind Or Do Yo Have Difficulty Seeing? No [email or web address] Information not available 06/23/2022 Are You Deaf Or Do You Have Serious Difficulty Hearing? No [email or web address] Information not available 06/23/2022 Live Alone Of With Others? With Others [email or web address] Information not available 06/23/2022 Do You Have A Medical Power Of Dietitian Therapeutic? Yes MIGRATION.84263 62922 Information not available 04/08/2022 What Was The Date Of Your Most Recent Tobacco Screening? 12/23/2023 [email or web address] Information not available 12/23/2023 Do You Have Any Pets? No MIGRATION.63839 09578 Information not available 04/08/2022 What Is Your Relationship Status? MIGRATION.70338 02142 Information not available 04/08/2022 Do You Use Your Seat Belt Or Car Seat Routinely? Yes MIGRATION.05004 55752 Information not available 04/08/2022 Do You Have Smoke And Carbon Monoxide Detectors In Your Home? Yes MIGRATION.65356 78700 Information not available 04/08/2022 Are You Passively Exposed To Smoke? No MIGRATION.29716 27708 Information not available 04/08/2022 Are There Any Smokers In Your House? No MIGRATION.20050 06325 Information not available 04/08/2022 Do You Use Sunscreen Routinely? No MIGRATION.63473 21290 Information not available 04/08/2022 Have You Recently Traveled Abroad? No MIGRATION.51114 20108 Information not available 04/08/2022 Do You Have Difficulty Walking Or Climbing Stairs? No MIGRATION.57458 42543 Information not available 04/08/2022 Do You Have Any Dietary Restrictions? No MIGRATION.21731 87827 Information not available 04/08/2022 Sex: Male Functional Status Question Answer Note LastModified by Organizat ion Details LastModified Time What is your level of alcohol consumption? Moderate maybe 1 daily [email or web address] Information not available 12/23/2023 Do you have transportation difficulties? No MIGRATION.875559 8764 Information not available 04/08/2022 Are you able to walk independently without assistance or assistive devices? YESWOREST MIGRATION.773520 2744 Information not available 04/08/2022 Do you have difficulty doing errands alone? No MIGRATION.085776 7112 Information not available 04/08/2022 Are you able to care for yourself independently? Yes MIGRATION.947318 8093 Information not available 04/08/2022 Do you have difficulty dressing, bathing, grooming, or toileting? No MIGRATION.171140 5524 Information not available 04/08/2022 What is your exercise level? Occasional [email or web address] Information not available 06/23/2022 Mental Status Question Answer Note LastModified by Organizat ion Details LastModified Time Do you have difficulty concentrating, remembering or making decisions? No MIGRATION.[id number] Information not available 04/08/2022 Family History [...] DISEASE/DISORDER N HISTORY OF DRUG ABUSE N RADIATION / CHEMOTHERAPY N COPD N Other # 2 N BLOOD DISEASES [...] HAVE YOU BEEN HOSPITALIZED OR SEEN IN [facility] IN THE PAST YEAR ? N ATHEROSCLEROSIS [...] SARS-COV-2 (COVID-19) vaccine, UNSPECIFIED 3 completed Virgen [facility] 07/03/2022 16:12:40 influenza, unspecified formulation 3 completed Virgen [facility] 12/17/2022 16:22:07 SARS-COV-2 (COVID-19) vaccine, UNSPECIFIED 3 completed Virgen [facility] 12/22/2022 11:23:10 influenza, unspecified formulation 3 completed [facility] 12/22/2022 11:23:44 Influenza, high-dose, trivalent, PF 5 completed Not Available [facility] 12/28/2024 10:48:50 Pneumococcal conjugate PCV 13 5 completed Not Available [facility] 12/28/2024 10:48:50 pneumococcal polysaccharide PPV23 6 completed Not Available [facility] 12/28/2024 10:48:50 Influenza, high-dose, trivalent, PF 8 completed Not Available [facility] 12/28/2024 10:48:50 Influenza, high-dose, trivalent, PF 9 completed Not Available [facility] 12/28/2024 10:48:50 Influenza, high-dose, quadrivalent, PF 0 completed Not Available [facility] 12/28/2024 10:48:50 Influenza, high-dose, quadrivalent, PF 1 completed Not Available [facility] 12/28/2024 10:48:50 COVID-19, mRNA, LNP-S, PF, 100 mcg/0.5mL dose or 50 mcg/0.25mL dose 2 completed Not Available [facility] 12/28/2024 10:48:50 COVID-19, mRNA, LNP-S, PF, 50 mcg/0.5 mL 4 completed Not Available [facility] 12/28/2024 10:48:50 Influenza, high-dose, trivalent, PF 4 completed Not Available [facility] 12/28/2024 10:48:50 Tdap 5 completed Not Available [facility] 12/28/2024 10:48:50 COVID-19, mRNA, LNP-S, PF, 10 mcg/0.2 mL 5 completed Not Available [facility] 12/28/2024 10:48:50 Influenza, adjuvanted, trivalent, PF 5 completed Not Available [facility] 12/28/2024 10:48:50 Influenza, split virus, trivalent, preservative 3 completed Not Available [facility] 04/08/2022 14:51:31 zoster live 3 completed Not Available [facility] 04/08/2022 14:51:31 Influenza, high-dose, trivalent, PF 6 completed Not Available [facility] 04/08/2022 14:51:31 DTaP 3 completed Not Available [facility] 04/08/2022 14:51:31 COVID-19, mRNA, LNP-S, PF, 100 mcg/0.5mL dose or 50 mcg/0.25mL dose 2 completed Not Available [facility] 04/08/2022 14:51:31 Influenza, high-dose, trivalent, PF 7 completed Not Available [facility] 04/08/2022 14:51:31 Influenza, high-dose, trivalent, PF 2 completed Not Available [facility] 04/08/2022 14:51:31 Influenza, split virus, quadrivalent, preservative 2 completed Not Available [facility] 04/08/2022 14:51:31 COVID-19, mRNA, LNP-S, PF, 100 mcg/0.5mL dose or 50 mcg/0.25mL dose 1 completed Not Available [facility] 04/08/2022 14:51:31 SARS-COV-2 (COVID-19) vaccine, UNSPECIFIED 1 completed Not Available [facility] 04/08/2022 14:51:32 SARS-COV-2 (COVID-19) vaccine, UNSPECIFIED 1 completed Not Available [facility] 04/08/2022 14:51:32 Influenza, split virus, quadrivalent, preservative 0 completed Not Available [facility] 04/08/2022 14:51:32 Influenza, high-dose, trivalent, PF 4 completed Not Available [facility] 04/08/2022 14:51:32 Past Encounters Encounter ID Performer Location Encounter Start Date Encounter Closed Date Diagnosis/Indication Diagnosis SNOMED-CT Code Diagnosis ICD10 Code Diagnosis IMO Codes Diagnosis Note [id number] Jem Nicole MD [facility] [place] [facility] [place] [address] [facility] [place] [address] 06/07/2020 00:00:00 06/07/2020 11:42:[id number] [facility] [facility] [place] [address] [place] [address] [place] [address] 12/20/2020 00:00:00 12/20/2020 12:10:32 [id number] Jem Nicole MD [facility] [place] [address] [place] [address] [place] [address] 01/21/2021 00:00:00 01/21/2021 11:16:[id number] [facility] [place] [address] [place] [address] 11/05/2021 00:00:00 11/13/2021 07:54:[id number] [facility] [place] [address] [place] [address] [place] [address] 12/23/2021 00:00:00 12/23/2021 10:54:[id number] [facility] [place] [address] [place] [address] 12/24/2021 00:00:00 2021 09:10:[id number] [facility] [place] [address] [place] [address] 01/19/2022 00:00:00 01/19/2022 14:42:[id number] [facility] [place] [address] [place] [address] 02/04/2022 00:00:00 02/04/2022 11:15:[id number] [facility] [place] [address] [place] [address] 03/06/2022 00:00:00 03/06/2022 09:29:06 [id number] Jem Nicole MD [facility] [place] [facility] [address] [address] 03/18/2022 00:00:00 03/18/2022 11:11:37 [id number] Jem Nicole MD [facility] [place] [facility] [address] [address] 05/13/2022 14:20:04 05/13/2022 14:41:21 Acute bronchitis 93867302 J20.9 [id number] Jem Nicole MD [facility] [place] [facility] [place] [address] [place] [address] [place] [address] 06/23/2022 10:32:13 06/23/2022 11:14:28 Adult health examination 761584357 Z00.00 Screening for disorder 804274232 Z13.9 Asthma 310456721 J45.90 9 Essential hypertension 98249443 I10 Hypercholesterolemia 136 34729 E78.00 Cervical radiculopathy 88233821 M54.12 [id number] Jem Nicole MD [facility] [address] [place] [address] , [place] [address] 12/22/2022 10:44:18 12/22/2022 12:00:37 Essential hypertension 19261542 I10 Hypercholesterolemia 136 90972 E78.00 Asthma 319531443 J45.90 9 Spinal nir nosis in cervical region 81661558 M48.02 Disorder of prostate 302 14775 N42.9 [id number] Pollo Martinez MD [facility] [place] [place] [address] [place] [address] 01/08/2023 09:26:30 01/08/2023 10:31:52 History of total replacement of left hip joint [id number] 741654 Z96.858 [id number] Jem Nicole MD [facility] [place] [facility] [address] [address] 06/24/2023 10:06:59 06/24/2023 10:42:01 Acquired hypothyroidism 261527607 E03.9 Cervical radiculopathy 24612715 M54.12 Essential hypertension 77688985 I10 Asthma 973765682 J45.90 9 Hypercholesterolemia 136 96961 E78.00 Obese class I [id number] 73830 E66.9 [id number] Jem Nicole MD [facility] [address] [facility] [place] [address] 12/23/2023 10:23:04 12/23/2023 11:19:17 Adult health examination 405985809 Z00.00 Screening for disorder 342418405 Z13.9 Asthma 152153208 J45.90 9 Essential hypertension 76392021 I10 Hypercholesterolemia 136 18325 E78.00 Acquired hypothyroidism 819863316 E03.[id number] [facility] Internal Med [facility] [address] [address] 06/22/2024 10:30:13 06/22/2024 11:01:47 Acquired hypothyroidism 953446261 E03.9 Essential hypertension 37246851 I10 Hypercholesterolemia 136 97367 E78.00 Asthma 524483166 J45.90 9 Disorder of prostate 302 71646 N42.9 [id number] [facility] Internal Med [facility] [address] [address] 12/28/2024 10:48:04 12/28/2024 11:27:24 General examination of patient 905109593 Z00.00 [id number] Essential hypertension 21988321 I10 Hypercholesterolemia 136 84787 E78.00 Acquired hypothyroidism 619960088 E03.9 Benign pro static hyperplasia 372741450 N40.0 Asthma 706019807 J45.90 9 Health Concerns Section Related Observation LastModified by Organization Detai ls LastModified Time None Recorded Concern Status LastModified by Organization Details LastModified Time None Recorded Advance Directives Directive Y: Payers Insurance Date Sequence Insurance Name Policy Number Policy Flores Covered Member ID Flores Member ID Guarantor Name 12/28/2024 1 [place] Bo Downey [id number] Bo Loyat 12/28/2024 2 [facility] (PP[place]) [id number] Bo Heathsert [id number] Bo Loyat 12/28/2024 [employer] ASS[employer] (MEDICARE DME REGION B) Bo Heathsert [id number] Bo Loyat Notes Date Note Type Note Provider Name and Address Organization Details Recorded Time 06/24/19 24 text/htm l Patient Name: Bo [...] Systemic Symptoms:none Medication Reconciliation: from medication list. Myojjkvfjwd99/10/2022 echocardiogram and PFTs: PFTs demonstrate some very [...] disease with moderate spinal stenosis at C3-C4 -dzrl-kw-hiiwnkrp spinal stenosis at C5-C6 and C6-C7 -mild [...] 50 MG TABLET One Daily Vaccination and Hgfjnkkfqrsh3621-65 Pbacbiega8614-91 Covid Booster Pybwcth0647-05 Covid Atwikgh2916-36 Bejhwggvb7676-75 Prevnar 13 Ks7897-53 Dtap Surgical Lddrazi4034-61 Left AOB6127-79 Bilateral KIX5386-28 Ventral Hernia Hjusda5002-48 Squamous Cell Left Exu8514-00 Tonsillectomy Preventative Vcecljp0301/28/2023 ALBUMIN 4.3 G/DL N103/31/2022 PSA 2.92 NG/ML01/09/2014 [...] Pulmonary EmbolismFather Hx: ROSETTA Nicole MD [address] [facility], [facility] [address], [place], [address], [facility] [employer] 06/24/2023 10:39:22 12/23/19 24 text/htm l Patient Name: Bo Costate Of Service: December ( 12.23.2023 ): 1945 [...] Systemic Symptoms:none Medication Reconciliation: from medication list. Wsafdpekuxz02/23/2023: MRI of the cervical spine without contrast demonstrated advanced degenerative joint disease with moderate spinal stenosis at C3-C4 -ylkb-hg-qzrkcweb spinal stenosis at C5-C6 and C6-C7 -mild [...] offered to be evaluated and instructed by rn ent on weight loss diet. Active Medication ListSynthroid [...] MODERNA( ) 2023-12 COVID BOOSTER MODERNA Surgical Higsdjd6327-59 Left PNM8956-30 Bilateral NPL7440-85 Ventral Hernia Vtrqfo7131-90 Squamous Cell Left Vql1536-89 Tonsillectomy Preventative Testing( ) 01/28/2023 Albumin 4.3 [...] 0.70-1.28 MG/DLEGFR 89 > OR = 60 ML/MIN/1.48L1JIFGC PANEL, STANDARD Date: 3CHOLESTEROL, TOTAL 209 <200 MG/DLHDL CHOLESTEROL 65 > OR = 40 MG/DLTRIGLYCERIDES 90 <150 MG/DLLDL-CHOLESTEROL 125 MG/DL (CALC)PSA, POST-PROSTATECTOMY Date: 3PSA, ICMA 2.92 NG/ML Jem Nicole MD [address] [facility], [facility] [address], [place], [address], [place] [facility] [employer] [facility] 12/23/2023 11:11:31 06/23/19 25 text/htm l Patient [...] Systemic Symptoms:none Medication Reconciliation: from medication list. Qitthvsfjou25/23/2023: MRI of the cervical spine without contrast demonstrated advanced degenerative joint disease with moderate spinal stenosis at C3-C4 -uvuj-kh-rtelnjcg spinal stenosis at C5-C6 and C6-C7 -mild [...] MODERNA( ) 2023-12 COVID BOOSTER MODERNA Surgical Jqvlgaz7202-80 Left QIT1976-47 Bilateral OCW7613-51 Ventral Hernia Wwziyk2138-04 Squamous Cell Left Gdg1552-37 Tonsillectomy Preventative TestingPreventative Testing Discussed and Scheduled [...] 0.70-1.28 MG/DLEGFR 89 > OR = 60 ML/MIN/1.58U0KSRPCOZNK, TOTAL 0.5 0.2-1.2 MG/DLALKALINE PHOSPHATASE 58 35-144 U/LAST 23 10-35 U/LALT 16 9-46 U/LLIPID PANEL, STANDARD Date: 4CHOLESTEROL, TOTAL 192 <200 MG/DLHDL CHOLESTEROL 60 > OR = 40 MG/DLTRIGLYCERIDES 80 <150 MG/DLLDL-CHOLESTEROL 115 MG/DL (CALC)T4, FREE Date: 12/27/2023T4, FREE 1.3 0.8-1.8 NG/DLTSH Date: 12/27/2023TSH 0.84 0.40-4.50 MIU/L Jem Nicole MD [address] [facility], [facility] [address], [place], [address], [facility] [employer] [facility] 06/22/2024 10:53:25 12/29/19 25 text/htm l Patient Name: Bo DowneyDate Of Service: December ( 12.28.2024 ): 1945 Age: 79 There has been approximately a 8 lb weight loss since 06/22/2024. This represents approximately a 3.9% change in weight. Weight change attributable to lifestyle changes. Vital Signs:Blood Pressure: Sitting Rt. Arm 120/80Pulse: Sitting 79 /min and 97Respiratory Rate: 16Height 67 in or 1.7 mWeight 196 lb or 88.9 kgBMI 30.7Temperature: 97.2 F or 36.2 C Chief Complaint: Addressed in HPI Problems or conditions discussed in the HPI were the only ones reviewed during the encounter.Only social and family history addressed in the HPI were reviewed during this encounter. A significant, separate E/M service was performed to evaluate the current and new problems. Attendants(s) + NoneConstitutional and Systemic Symptoms:none Medication Reconciliation: from medication list. History of Present Illness Reviewed the findings of the preventative health visit. Addressed all areas with the patient, patient's family or caregivers. Preventative examinations and testing immunizations - vaccinations, colonic neoplasm screening and PSA all reviewed and ordered where patient was amenable to the recommendations. Cognitive function see HPI but demonstrated no overall change in cognitive status . Depression addressed and where necessary medications were [...] normal Currently taking synthroid. #4. Hx of BPH currently stable. No change in strength or initiation of urinary stream. No post voiding problems. No hx of any fever or chills. Currently taking no medications.#5. Asthma clinically stable currently taking Symbicort as well as Proventil inhaler. Overall has been doing well. No change in exercise tolerance. No increased shortness of breath or wheezing etc.. Wellness Evaluation PHQ-2 Score Last Two Weeks Last Two Weeks: 0: Not at all 1: Several Days 2: More than half 3: Almost Every day #1. Little interest or pleasure in doing things: Not At All :Score 0#2. Feeling down, depressed, or hopeless: Not At All :Score 0Minimal or no Depression 0Function Status Staging: No demonstrable functional decline Basic ADLS Ambulation: NormalGrooming: General Personal Hygiene NormalToiletry: Self SufficientDressing: Dresses Without AssistanceEating: Self Sufficient Instrumental ADLS Managing Finances YesManaging Health YesShopping YesPreparing Meals YesUsing Technology YesHouse Work YesTaking Care of Pets YesTaking Care Children YesTransportation Yes Additional Topics Advanced Directives: DeclinedLiving Will: DeclinedDiscussed: Weight LossCode Status: Full Code Additional Comments Topics listed or those only pertinent to the patient or care givers. Mini Mental Status Exam Orientation: Year + Season + Month + Date + Day + Score: 5Location: Country + County + City + Facility + Room + Score: 5Registration: House + Car + Airplane + Score: 3Attention: D + L + R + O + W + Score: 5Recall: House + Car + Airplane + Score: 3Language: Watch + Pencil + Score: 2Repetition: No ifs, ands, or buts + Score: 1Sentence: Write a Sentence + Sentence: High like Dr. Nicole.Score: 1Reading: Close Eyes + Score: 1Pentagons: Copy Design + Score: 1 Command: Hand + Fold In Half + Put Down + Score: 3 Total Test Score: 30 /30 Normal Possible Functional ImpairmentActivities of Daily Living: Probably NormalCommunication: Probably NormalMemory: Probably Normal Social and Physical Activities Drinking History: NoneExercise 20 Minutes per Week: Yes, most of the timeDifficulty Driving Car: NoOther Problems:NoneSmoking History: Does not smokeCannabis History: Does Not UseVaping History: Does Not Vape Wellness Evaluation Complete Active Medication ListSynthroid 0.15 MG (TABLET - ORAL) One Daily For ThyroidZetia 10 MG (TABLET - ORAL) Once DailyProventil-hfa 0.09 MG /INH Two Puffs Qid Prn For WheezingLosartan Potassium 50 MG TABLET One DailySymbicort 160; 4.5 UG; UG AEROSOL Inhale 2 Puff Twice A Day Adverse Drug Reactions ReviewedNo Known Adverse Drug Reactions! (X) Vaccinations and/or Immunizations Due(X) 2023-12 INFLUENZA(X) 2023-12 COVID BOOSTER MODERNA(X) PCV20 or PCV21 Recommended(X) RSV Recommended(X) Shingrix RecommendedImmunizations and Vaccinations Discussed and Implemented if feasible In the Office. Else referred to pharmacies. Surgical Skgxeak2001-34 Left INO9558-04 Bilateral QJU6073-25 Ventral Hernia Ckufks0605-59 Squamous Cell Left Wpe7214-57 Tonsillectomy Preventative Testing: (X) Due (?) Optional( ) 06/27/2024 Albumin 4.1 G/DL N( ) 06/27/2024 PSA 3.93 NG/ML N 06/27/2025( ) 12/31/2023 Cologuard 12/30/2026Preventative Testing Discussed with Patient and Any Attendants Social HistorySmoking Hx: Does not smoke cigarettes. Also smokes PipeDrinking Hx: < 6 beers per week, 3 Cups of coffee per day, <6 cans of soft drinks per day.Exercise: WeeklySexual Hx: Sexually ActiveOccupation: Health care Family HistoryMother 59 years oldFather 51 years old1 Brothers from CAD1 Sisters 1 LivingMother Hx: Pulmonary EmbolismFather Hx: ASHD (X) Vaccinations and/or Immunizations Due(X) 2023-12 INFLUENZA(X) 2023-12 COVID BOOSTER MODERNA(X) PCV20 or PCV21 Recommended(X) RSV Recommended(X) Shingrix RecommendedImmunizations and Vaccinations Discussed and Implemented if feasible In the Office. Else referred to pharmacies. Surgical Wnvgxwo4771-59 Left MNS7519-52 Bilateral PZH3728-64 Ventral Hernia Vllsyf8128-53 Squamous Cell Left Ioi5110-18 Tonsillectomy Preventative Testing: (X) Due (?) Optional( ) 06/27/2024 Albumin 4.1 G/DL N( ) 06/27/2024 PSA 3.93 NG/ML N 06/27/2025( ) 12/31/2023 Cologuard 12/30/2026Preventative Testing Discussed with Patient and Any Attendants TEST RESULT RANGE UNITSCARDIO IQ(R) LIPOPROTEIN (A) Date: 06/27/2024LIPOPROTEIN (A) 147 <75 NMOL/LCBC (INCLUDES DIFF/PLT) Date: 06/27/2024WHITE BLOOD CELL COUNT 6.9 3.8-10.8 THOUSAND/ULHEMOGLOBIN 13.5 13.2-17.1 G/DLHEMATOCRIT 43.1 38.5-50.0 %PLATELET COUNT 249 140-400 THOUSAND/ULCOMPREHENSIVE METABOLIC PANEL Date: 06/27/2024SODIUM 142 135-146 MMOL/LPOTASSIUM 4.2 3.5-5.3 MMOL/LGLUCOSE 107 65-99 MG/DLUREA NITROGEN (BUN) 15 7-25 MG/DLCREATININE 0.88 0.70-1.28 MG/DLEGFR 89 > OR = 60 ML/MIN/1.33A8EJDCTEHXL, TOTAL 0.5 0.2-1.2 MG/DLALKALINE PHOSPHATASE 62 35-144 U/LAST 21 10-35 U/LALT 16 9-46 U/LLIPID PANEL, STANDARD Date: 06/27/2024HOLESTEROL, TOTAL 195 <200 MG/DLHDL CHOLESTEROL 61 > OR = 40 MG/DLTRIGLYCERIDES 75 <150 MG/DLLDL-CHOLESTEROL 117 MG/DL (CALC)PSA, TOTAL Date: 06/27/2024PSA, TOTAL 3.93 < OR = 4.00 NG/MLT4, FREE Date: 06/27/2024T4, FREE 1.4 0.8-1.8 NG/DLTSH Date: 06/27/2024TSH 0.32 0.40-4.50 MIU/L Jem Nicole MD [address] [facility], [place], [address], [place] [facility] 12/28/2024 11:20:18
--- OUTSIDE RECORDS SUMMARY | 2025-01-28 23:38 | XMS_ITS | Continuity of Care Document ---
Author Organization [place] [facility], S_GMG Internal Med [facility] 24 [address] [place] [address] Care Team Providers Care Thermal Cutter Helper Name Role Phone JEM NICOLE Primary Care Provider [phone] JEM NICOLE Referring Provider Assessment No assessment recorded. Plan of Treatment Reminders Order Date Submit Date Provider Last Modified By Organization Details Last Modified Time Details Appointments None record ed. Lab None record ed. Referral None record ed. Procedures None record ed. Surgeries None record ed. Imaging None record ed. Medication Orders None record ed. Patient TargetsNo targets recorded. Patient Instructions Encounter Date Encounter Id Patient Instructions Last Modified By Organization Details Last Modified Time 12/28/2024 [id number] Medicare [facility] s evaluation risk assessment stable. Follow-up for [...] with one of the urologists up at [facility] has seen in the past [...] Created: Jem Nicole M.D. 12.28.2024 10:19 AM [email or web address] Not available 12/28/2024 11:19:57 Reason for Referral None Reported. Problems Name Problem SNOMED Code Status Onset Date Resolution Date Notes Provider Name and Address Organization Details Recorded Time Acquired hypothyroi dism 476947883 Active Not Available [facility] 3 12:43:10 Hyperchole sterolemia 83844850 Active Not Available [facility] 3 12:43:10 Asthma 411672095 Active Not Available [facility] 3 12:43:10 Hyperthyro idism 03746133 Active Not Available [facility] 3 12:43:10 Umbilical hernia 075867317 Active Not Available [facility] 3 12:43:10 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 Not Available [facility] 3 12:43:10 Cervical radiculopa thy 33075955 Active Not Available [facility] 3 12:43:10 Right bundle branch block 84732161 Active Not Available [facility] 3 12:43:10 Benign prostatic hyperplasi a 304303352 Active 2017 Not Available [facility] 3 12:43:10 Disorder of muscle 189772562 Active 2020 Not Available [facility] 3 12:43:10 Sciatica 63749875 Active 2021 Not Available [facility] 3 12:43:10 Pain in lumbar spine 208102802 Active 2021 Not Available [facility] 3 12:43:10 Pain of left hip joint 7737995619437 00 Active 2021 Not Available [facility] 3 12:43:10 Acute ischemic heart disease 045610718 Active 2021 Not Available [facility] 3 12:43:10 Right bundle branch block 81324647 Active 2021 Not Available [facility] 3 12:43:11 Essential hypertensi on 36542635 Active 2021 Not Available [facility] 3 12:43:11 Osteoarthr itis 706432507 Active 2021 Not Available [facility] 3 12:43:10 Cough 79185040 Active 2022 Not Available [facility] 3 12:43:10 Acute bronchitis 98474175 Active 2022 Not Available [facility] 3 12:43:10 Pneumonia 850322163 Active 2022 Not Available [facility] 3 12:43:10 Spinal stenosis in cervical region 34129914 Active 2022 Not Available [facility] 3 12:43:11 Disorder of prostate 00004798 Active 2022 Jem Nicole MD [address], [place], [address] , [facility] 3 11:54:43 Acquired bilateral pes planus 2006616606628 9109 Active 2022 Kiesha Marx CMA null, [place] [facility] 3 10:12:00 COVID-19 064691755 Active 2023 Jem Nicole MD [address], [place], [address] , [place] [facility] 4 12:42:22 Obese class I 0865762156078 07 Active 2023 Jem Nicole MD [address], [address], [place], [address] , [facility] 4 10:35:57 Pain of right shoulder joint 1545533961682 9100 Active 2023 Yumiko Jung CMA null, [place] [facility] 4 11:48:52 Asymmetric al hearing loss 424343785 Active 2024 Yumiko Jung CMA null, [facility] 5 15:06:54 Notes:Some problems listed i n Document: #[id number] could not be added to this patient's chart. Please review this document and add these problems to the patient's chart manually as needed. Problem Notes None recorded. Procedures Surgical History Date Name Laterality Status Provider Name and Address Organization Details Recorded Time 4 Medicare Wellness CPT Code, subsequent completed Sara Downey RN [facility] 12/23/2023 10:55:41 3 Medicare Wellness CPT Code, subsequent completed Sara Downey RN [facility] 06/23/2022 10:38:05 hernia repair completed CRISTAL Rodriguez [facility] 01/08/2023 09:45:53 Imaging Results None recorded. [...] Updated DateTime 5 170.18 cm 30.7 kg/m2 33736.1 g 79 /min 97 % 120/80 mm[Hg] Yumiko Jung CMA [place] [facility] 5 10:49:54 Social History Question Answer Notes LastModified by Organizat ion Details LastModified Time Tobacco Smoking Status Never Smoker Not Available [employer] 04/08/2022 14:45:24 Do You Have An Advance Directive? Yes MIGRATION. Information not available 04/08/2022 Are You Blind Or Do You Have Difficulty Seeing? No MIGRATION. 58581 Information not available 04/08/2022 In The 14 Days Before Symptom Onset, Have You Had Close Contact With A Laboratory-confir med COVID-19 While That Case Was Ill? No MIGRATION. Information not available 04/08/2022 In The 14 Days Before Symptom Onset, Have You Had Close Contact With A Person Who Is Under Investigation For COVID-19 While That Person Was Ill? No MIGRATION. 08488 Information not available 04/08/2022 Are You Deaf Or Do You Have Serious Difficulty Hearing? Yes [email or web address] Information not available 12/23/2023 What Type Of Diet Are You Following? REGULAR MIGRATION.67731 57798 Information not available 04/08/2022 Have There Been Any Changes To Your Family Or Social Situation? No MIGRATION.26488 70820 Information not available 04/08/2022 What Is The Fluoride Status Of Your Home? Unknown [email or web address] Information not available 06/23/2022 Are There Any Guns Present In Your Home? No MIGRATION.32724 75245 Information not available 04/08/2022 Do You Use Insect Repellent Routinely? No MIGRATION.46861 23308 Information not available 04/08/2022 Where Do You Live? [place] MIGRATION.24920 36494 Information not available 04/08/2022 Guns Present In The Home? No [email or web address] Information not available 12/23/2023 Are You Able To Care For Yourself? Yes [email or web address] Information not available 06/23/2022 Are You Blind Or Do Yo Have Difficulty Seeing? No [email or web address] Information not available 06/23/2022 Are You Deaf Or Do You Have Serious Difficulty Hearing? No [email or web address] Information not available 06/23/2022 Live Alone Of With Others? With Others [email or web address] Information not available 06/23/2022 Do You Have A Medical Power Of Car Unloader Helper? Yes MIGRATION.77757 30470 Information not available 04/08/2022 What Was The Date Of Your Most Recent Tobacco Screening? 12/23/2023 [email or web address] Information not available 12/23/2023 Do You Have Any Pets? No MIGRATION.89485 16433 Information not available 04/08/2022 What Is Your Relationship Status? MIGRATION.33197 58006 Information not available 04/08/2022 Do You Use Your Seat Belt Or Car Seat Routinely? Yes MIGRATION.50694 53265 Information not available 04/08/2022 Do You Have Smoke And Carbon Monoxide Detectors In Your Home? Yes MIGRATION.49615 99134 Information not available 04/08/2022 Are You Passively Exposed To Smoke? No MIGRATION.20412 45431 Information not available 04/08/2022 Are There Any Smokers In Your House? No MIGRATION.01485 34999 Information not available 04/08/2022 Do You Use Sunscreen Routinely? No MIGRATION.77610 35649 Information not available 04/08/2022 Have You Recently Traveled Abroad? No MIGRATION.28403 75022 Information not available 04/08/2022 Do You Have Difficulty Walking Or Climbing Stairs? No MIGRATION.77638 57409 Information not available 04/08/2022 Do You Have Any Dietary Restrictions? No MIGRATION.15220 50288 Information not available 04/08/2022 Sex: Male Functional Status Question Answer Note LastModified by Organizat ion Details LastModified Time What is your level of alcohol consumption? Moderate maybe 1 daily [email or web address] Information not available 12/23/2023 Do you have transportation difficulties? No MIGRATION.012549 0397 Information not available 04/08/2022 Are you able to walk independently without assistance or assistive devices? YESWOREST MIGRATION.860182 7263 Information not available 04/08/2022 Do you have difficulty doing errands alone? No MIGRATION.842255 4252 Information not available 04/08/2022 Are you able to care for yourself independently? Yes MIGRATION.868355 2114 Information not available 04/08/2022 Do you have difficulty dressing, bathing, grooming, or toileting? No MIGRATION.254760 8687 Information not available 04/08/2022 What is your exercise level? Occasional [email or web address] Information not available 06/23/2022 Mental Status Question Answer Note LastModified by Organizat ion Details LastModified Time Do you have difficulty concentrating, remembering or making decisions? No MIGRATION.455262743 6 Information not available 04/08/2022 Family History [...] HAVE YOU BEEN HOSPITALIZED OR SEEN IN [facility] IN THE PAST YEAR ? N ATHEROSCLEROSIS [...] SARS-COV-2 (COVID-19) vaccine, UNSPECIFIED 3 completed Virgen Lindsay S[facility] SITE [facility] [employer] [facility] 07/03/2022 16:12:40 influenza, unspecified formulation 3 completed Virgen Musea SMR SITE [employer] [facility] 12/17/2022 16:22:07 SARS-COV-2 (COVID-19) vaccine, UNSPECIFIED 3 completed Virgen Musea null [facility] [employer] [facility] [email or web address] [facility] 12/22/2022 11:23:10 influenza, unspecified formulation 3 completed Virgen Lindsay SMR SITE [facility] [employer] [facility] [email or web address] [facility] [employer] 12/22/2022 11:23:44 Influenza, high-dose, trivalent, PF 5 completed Not Available [facility] 12/28/2024 10:48:50 Pneumococcal conjugate PCV 13 5 completed Not Available [facility] 12/28/2024 10:48:50 pneumococcal polysaccharide PPV23 6 completed Not Available [facility] 12/28/2024 10:48:50 Influenza, high-dose, trivalent, PF 8 completed Not Available [facility] 12/28/2024 10:48:50 Influenza, high-dose, trivalent, PF 9 completed Not Available [facility] 12/28/2024 10:48:50 Influenza, high-dose, quadrivalent, PF 0 completed Not Available [facility] 12/28/2024 10:48:50 Influenza, high-dose, quadrivalent, PF 1 completed Not Available [facility] 12/28/2024 10:48:50 COVID-19, mRNA, LNP-S, PF, 100 mcg/0.5mL dose or 50 mcg/0.25mL dose 2 completed Not Available [facility] 12/28/2024 10:48:50 COVID-19, mRNA, LNP-S, PF, 50 mcg/0.5 mL 4 completed Not Available [facility] 12/28/2024 10:48:50 Influenza, high-dose, trivalent, PF 4 completed Not Available [facility] 12/28/2024 10:48:50 Tdap 5 completed Not Available [facility] 12/28/2024 10:48:50 COVID-19, mRNA, LNP-S, PF, 10 mcg/0.2 mL 5 completed Not Available [facility] 12/28/2024 10:48:50 Influenza, adjuvanted, trivalent, PF 5 completed Not Available [facility] 12/28/2024 10:48:50 Influenza, split virus, trivalent, preservative 3 completed Not Available [facility] 04/08/2022 14:51:31 zoster live 3 completed Not Available [facility] 04/08/2022 14:51:31 Influenza, high-dose, trivalent, PF 6 completed Not Available [facility] 04/08/2022 14:51:31 DTaP 3 completed Not Available [facility] 04/08/2022 14:51:31 COVID-19, mRNA, LNP-S, PF, 100 mcg/0.5mL dose or 50 mcg/0.25mL dose 2 completed Not Available [facility] 04/08/2022 14:51:31 Influenza, high-dose, trivalent, PF 7 completed Not Available [facility] 04/08/2022 14:51:31 Influenza, high-dose, trivalent, PF 2 completed Not Available [facility] 04/08/2022 14:51:31 Influenza, split virus, quadrivalent, preservative 2 completed Not Available [facility] 04/08/2022 14:51:31 COVID-19, mRNA, LNP-S, PF, 100 mcg/0.5mL dose or 50 mcg/0.25mL dose 1 completed Not Available [facility] 04/08/2022 14:51:31 SARS-COV-2 (COVID-19) vaccine, UNSPECIFIED 1 completed Not Available [facility] 04/08/2022 14:51:32 SARS-COV-2 (COVID-19) vaccine, UNSPECIFIED 1 completed Not Available [facility] 04/08/2022 14:51:32 Influenza, split virus, quadrivalent, preservative 0 completed Not Available [facility] 04/08/2022 14:51:32 Influenza, high-dose, trivalent, PF 4 completed Not Available [facility] 04/08/2022 14:51:32 Past Encounters Encounter ID Performer Location Encounter Start Date Encounter Closed Date Diagnosis/Indication Diagnosis SNOMED-CT Code Diagnosis ICD10 Code Diagnosis IMO Codes Diagnosis Note [id number] Jem Nicole MD S_G Internal Med [facility] [address] [place] [address] 12/28/2024 10:48:04 12/28/2024 11:27:24 General examination of patient 260595546 Z00.00 3604573 Essential hypertension 18775485 I10 Hypercholesterolemia 136 35387 E78.00 Acquired hypothyroidism 742997760 E03.9 Benign pro static hyperplasia 916678584 N40.0 Asthma 542365453 J45.90 9 Health Concerns Section Related Observation LastModified by Organization Detai ls LastModified Time None Recorded Concern Status LastModified by Organization Details LastModified Time None Recorded Payers Encounter Date Sequence Insurance Name Policy Number Policy Flores Covered Member ID Flores Member ID Guarantor Name 12/28/2024 1 [place] Aly Heathsert [id number] Aly Falk Gensert 12/28/2024 2 [place] [id number] Aly Heathsert [id number] Aly Downey Notes Date Note Type Note Provider Name and Address Organization Details Recorded Time 5 text/html Patient Name: Aly DowneyDate Of Service: December ( 12.28.2024 ): [...] the Office. Else referred to pharmacies. Surgical Obhvyko6997-22 Left IHV9617-64 Bilateral [id number] Ventral Hernia Vlgqjd1680-02 Squamous Cell Left Byv2008-17 Tonsillectomy Preventative Testing: (X) Due (?) Optional( [...] the Office. Else referred to pharmacies. Surgical Quibfom0611-45 Left PAK4362-62 Bilateral XES7215-19 Ventral Hernia Jxluoi8231-12 Squamous Cell Left Oxh7622-24 Tonsillectomy Preventative Testing: (X) Due (?) Optional( [...] 0.70-1.28 MG/DLEGFR 89 > OR = 60 ML/MIN/1.28L7HPTJKTZKG, TOTAL 0.5 0.2-1.2 MG/DLALKALINE PHOSPHATASE 62 35-144 U/LAST 21 10-35 U/LALT 16 9-46 U/LLIPID PANEL, STANDARD Date: 06/27/2024HOLESTEROL, TOTAL 195 <200 MG/DLHDL CHOLESTEROL 61 > OR = 40 MG/DLTRIGLYCERIDES 75 <150 MG/DLLDL-CHOLESTEROL 117 MG/DL (CALC)PSA, TOTAL Date: 06/27/2024PSA, TOTAL 3.93 < OR = 4.00 NG/MLT4, FREE Date: 06/27/2024T4, FREE 1.4 0.8-1.8 NG/DLTSH Date: 06/27/2024TSH 0.32 0.40-4.50 MIU/L Jem Nicole MD [address] [facility], [facility] [address], [place], [address], [place] [facility] [employer] 12/28/2024 11:20:18
--- OUTSIDE RECORDS SUMMARY | 2025-01-28 23:38 | XMS_ITS | Encounter Summary ---
Author Organization [facility] Address [address] [place] [address] Care Team Providers Care Loan Funder Name Role Phone Unavailable Primary Care Provider Unavailabl e Encounter Details Date Type Department Care Team (Late st Contact Info) Description 04/09/2022 Lab Requisition [facility] Derm[facility] Lab [address] [place] [address] Naveed Borges MD [address] [place] [address] Social History Tobacco Use Types Packs/Day Years [...] Diagnosis Comments DERMATOPATHOLOGY Routine 04/08/2022 3:33 AM LINE LEAD documented in this encounter Results * DERMATOPATHOLOGY (04/08/2022 3:33 AM LINE LEAD) Case Report Dermatopathology Report Case: [id number] Authorizing Provider: Naveed Borges MD Collected: 04/08/2022 03:33 AM Ordering Location: [facility] Received: 04/09/2022 02:13 PM Pathologist: Linh Lipscomb MD Specimen: Skin, neck - behind right earlobe 3 4:41 PM LINE LEAD DERMATOPATHOLOGY LABORATORY Final Diagnosis Specimen A. 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 Please Check Margins. 3 4:41 PM [facility] DERMATOPATHOLOGY LABORATORY Gross Description Specimen A: Received is one formalin filled container labeled with the patients name and designated neck - behind right earlobe. The specimen consists of a shave removal measuring 04t76t0td and it is inked. Jar 0. 3 4:41 PM [facility] DERMATOPATHOLOGY LABORATORY Microscopic Description Specimen A. SKIN, neck - behind right earlobe: The epidermis shows parakeratosis, full thickness disorderly maturation of keratinocytes, mitoses at different levels, and dyskeratotic cells. This lesion is not present at the sampled margin of the specimen. 3 4:41 PM [facility] DERMATOPATHOLOGY LABORATORY Disclaimer An external and internal positive and negative controls are appropriate for the histochemical, immunohistochemical and immunofluorescence stain(s) in this case (if any), except where stated explicitly. The performance characteristics of the stain(s) cited in this report were developed and its performance characteristic determined by the Dermatopathology Laboratory at [facility], directed by Dr. Rosey Lipscomb. These tests need not be, and therefore are not, approved by the [place] Food and Drug Administration. The tests are used for clinical purposes. Billing Codes Specimen Charges Stain Charges 52469 1 3 4:41 PM [facility] DERMATOPATHOLOGY LABORATORY Embedded Images 3 4:41 PM [facility] DERMATOPATHOLOGY LABORATORY Pathology/Cytolo gy TISSUE SPECIMEN FROM SKIN / Unknown 04/08/2022 3:33 AM LINE LEAD 04/09/2022 2:13 PM [facility] Naveed Borges MD LAB - PATHOLOGY/CYTOLOGY ORD ERABLES Final Result DERMATOPATHOLOGY LABORATORY [facility] - Department of Dermatology [address], [address] [phone] documented in this encounter Visit Diagnoses Not on filedocumented in this encounter
--- OUTSIDE RECORDS SUMMARY | 2025-01-28 23:38 | XMS_ITS | Encounter Summary ---
Author Organization [facility] Address [address] [place] [address] Care Team Providers Care Dry Heat Room Attendant Name Role Phone Unavailable Primary Care Provider Unavailabl e Encounter Details Date Type Department Care Team (Late st Contact Info) Description 06/25/2020 Lab Requisition [facility] DermPath Lab [address] [facility] [facility] [place] [place] [address] Naveed Borges MD [address] [place] [address] Social History Tobacco Use Types Packs/Day Years [...] AM CDT) Case Report Dermatopathology Report Case: [id number] Authorizing Provider: Naveed Borges MD Collected: 06/24/2020 12:00 AM Ordering Location: [facility] DermPath Lab Received: 06/25/2020 12:39 PM [...] of a nail (3 pieces) clipping measuring 9l3r1tv, 9d0g9jc, 4g3t6vu. Jar 0. 1 7:09 PM CDT DERMATOPATHOLOGY [...] characteristic determined by the Dermatopathology Laboratory at [facility], directed by Dr. Rosey Lipscomb. These tests need not be, and therefore are not, approved by the [place] Food and Drug Administration. The tests are used for clinical purposes. Billing Codes Specimen Charges Stain Charges 13288 1 46841 1 7:09 PM CDT DERMATOPATHOLOGY LABORATORY Embedded Images 7:09 PM CDT DERMATOPATHOLOGY LABORATORY Pathology/Cytolog y TISSUE SPECIMEN FROM SKIN / Unknown 06/24/2020 06/25/2020 12:39 PM CDT Naveed Borges MD LAB - PATHOLOGY/CYTOLOGY ORD ERABLES Final Result DERMATOPATHOLOGY LABORATORY [facility] - Department of Dermatology [address], [address] [phone] documented in this encounter Visit Diagnoses Not on filedocumented in this encounter
--- OUTSIDE RECORDS SUMMARY | 2025-01-28 23:38 | XMS_ITS | Encounter Summary ---
Author Organization [facility] Address [address] [place] [address] Care Team Providers Care Drain Tiler Name Role Phone Unavailable Primary Care Provider Unavailabl e Encounter Details Date Type Department Care Team (Late st Contact Info) Description 08/05/2022 Lab Requisition [facility] - DermPath Lab [address] [place] [phone] Naveed Borges MD [address] [place] [address] Social History Tobacco Use Types Packs/Day Years [...] AM CDT) Case Report Dermatopathology Report Case: [id number] Authorizing Provider: Naveed Borges MD Collected: 08/04/2022 12:00 AM Ordering Location: [facility] Derm[facility] Lab Received: 08/05/2022 02:24 PM [...] specimen consists of a shave biopsy measuring 32b53c5 mm. Jar 0. 3 4:50 PM CDT [...] characteristic determined by the Dermatopathology Laboratory at [facility], directed by Dr. Rosey Lipscomb. These tests need not be, and therefore are not, approved by the [place] Food and Drug Administration. The tests are used for clinical purposes. Billing Codes Specimen Charges Stain Charges 13964 1 3 4:50 PM CDT DERMATOPATHOLOGY LABORATORY Embedded Images 3 4:50 PM CDT DERMATOPATHOLOGY LABORATORY Pathology/Cytolog y TISSUE SPECIMEN FROM SKIN / Unknown 08/04/2022 08/05/2022 2:24 PM CDT Naveed Borges MD LAB - PATHOLOGY/CYTOLOGY ORD ERABLES Final Result DERMATOPATHOLOGY LABORATORY [facility] - Department of Dermatology [address] [phone] documented in this encounter Visit Diagnoses Not on filedocumented in this encounter
--- OUTSIDE RECORDS SUMMARY | 2025-01-28 23:38 | XMS_ITS | Clinical Summary ---
Author Organization [facility] Address [address] [place] [address] Care Team Providers Care Motorcycle Sales Associate Name Role Phone Unavailable Primary Care Provider Unavailabl e Source Comments [facility],non-owned Affiliates and Associated Physician Practices is amultiple site organization consisting of ambulatory clinics and hospital sitesin [place], [place], [place] and [place]. This disclosure is being madepursuant to the Care Everywhere program and may not contain all information available regarding this patient. Last updated 17.[facility] Social History Tobacco Use Types Packs/Day Years [...] yrs (1 - 1-dose 75+ series) 12/24/2022 DEPRESSION SCREENING 02/09/2024 COVID-19 VACCINE (1 - 2024-2 6 season) 2024 INFLUENZA VACCINE (#1) 2024 HEPATITIS B VACCINE [...] age to complete this topic Insurance MEDICARE [facility] MEDICARE [facility]
--- NOTE | 2025-01-29 00:01 | ECG_ITS ---
Test Date: 2025-01-29 00:43:57 Measurements Intervals Amigo Rate: 87 P: 55 [place]: 179 QRS: -71 QRSD: 171 T: 75 QT: 405 QTc: 488 Interpretive Statements SINUS RHYTHM WITH OCCASIONAL SUPRAVENTRICULAR PREMATURE COMPLEXES LEFT AXIS DEVIATION RIGHT BUNDLE BRANCH BLOCK LEFT VENTRICULAR HYPERTROPHY WITH ST-T CHANGE ANTEROSEPTAL INFARCT, AGE INDETERMINATE BASELINE ARTIFACT- I, II, III, AVR, AVL, AVF ABNORMAL ECG No previous ECG available for comparison Electronically Signed On 01-29-2025 06:55:24 GLOBAL PROJECT MANAGER by Herve Roland D.O.
--- NOTE | 2025-01-29 00:54 | ED.SOB ---
HPI - SOB/Dyspnea General Chief Complaint: Shortness of Breath/Dyspnea <Jennifer Higginbotham PA-C - Last Filed: 01/30/25 10:41> Stated Complaint: cough <Jennifer Higginbotham PA-C - Last Filed: 01/30/25 10:41> Time Seen by Provider: 01/29/25 00:54 <Jennifer Higginbotham PA-C - Last Filed: 01/30/25 10:41> Focused HPI: This is a 79 year old male that presents to the ER for cold symptoms. Ongoing over the last couple of days. Reports congestion, cough. His has been ill with similar symptoms GENERAL: Well-appearing, well-nourished, and in no acute distress. HEAD: Normocephalic, atraumatic. CHEST: No respiratory distress. Lung sounds are coarse HEART: Regular rate and rhythm.? NEURO: ?Alert and oriented x3. Patient screened in triage and initial orders placed.? ?Additional care and disposition to be based upon?diagnostic testing and treatment. <Jennifer Higginbotham PA-C - Last Filed: 01/30/25 10:41> History of Present Illness HPI Narrative: Patient 79-year-old gentleman presents emergency department with chief complaint of cough and congestion patient does report that he has had history of asthma past reports that his has been sick recently and was diagnosed with bronchitis patient states that he had similar symptoms the symptoms started 4 days ago reports this evening his symptoms were worse when he was laying down <Esteban Farley MD - Last Filed: 01/29/25 03:16> Related Data Home Medications: Home Medications ?Medication ?Instructions ?Recorded ?Confirmed ?Last Taken ?Type albuterol sulfate 90 mcg/actuation inhalation 11/09/23 11/23/23 Unknown History aerosol inhaler ezetimibe 10 mg tablet mg PO DAILY 11/09/23 11/23/23 Unknown History fluticasone 113 mcg-salmeterol 14 inh inhalation 11/09/23 11/23/23 Unknown History mcg/actuation breath activated powdr levothyroxine 150 mcg tablet mcg PO DAILY 11/09/23 11/23/23 Unknown History losartan 50 mg tablet mg PO DAILY 11/09/23 11/23/23 Unknown History <DENISE Eagle Last Filed: 01/30/25 10:41> Allergies/Adverse Reactions: Allergies Allergy/AdvReac Type Severity Reaction Status Date / Time No Known Allergies Allergy Unknown NONE Verified 01/28/25 23:47 <Jennifer Hgiginbotham PA-C - Last Filed: 01/30/25 10:41> Review of Systems Review of Systems: A 10 system review of systems was completed on the patient and is negative except for what is stated in the HPI. Nursing and ancillary documentation was reviewed. <Esteban Farley MD - Last Filed: 01/29/25 03:16> PMFSH Past Medical History Medical History: Medical History Hypertension Allergies Thyroid disorder <Jennifer Higginbotham PA-C - Last Filed: 01/30/25 10:41> Surgical History Surgical History: Surgical History S/P total left hip arthroplasty <Jennifer Higginbotham PA-C - Last Filed: 01/30/25 10:41> Family History Family History: Family History Other Family history of cardiovascular disease <Jennifer Higginbotham PA-C - Last Filed: 01/30/25 10:41> Social History Social History: Social History Smoking status: Never smoker Alcohol intake: current Alcohol use details: occasionally Substance use: never Substance use type: does not use Current Housing: Decline to Answer Concerned About Future Housing: Decline to Answer Difficulty Paying Gas/Electric Bills: Decline to Answer Difficulty Paying for Meds: Decline to Answer Currently Unemployed: Decline to Answer Education: Decline to Answer Difficulty w/ Childcare or Family Care: Decline to Answer <Jennifer Higginbotham PA-C - Last Filed: 01/30/25 10:41> Exam Narrative: GENERAL: Well-appearing, well-nourished, and in no acute distress. HEAD: Normocephalic, atraumatic. EYES: PERRLA and EOMI. ENT: Nares clear, no rhinorrhea or epistaxis. Mucous membranes moist. NECK: Supple. CHEST: Scattered wheezes and rhonchi to auscultation. No respiratory distress. HEART: Regular rate and rhythm. No murmur heard. Normal peripheral pulses. ABDOMEN: Soft, nontender, nondistended, normal active bowel sounds. EXTREMITIES: Normal range of motion. No edema. SKIN: Warm, dry, no rash. NEURO: No focal deficits. Alert and oriented x3. PSYCH: Normal mood and affect. <Esteban Farley MD - Last Filed: 01/29/25 03:16> Course Vital Signs Vital signs: Vital Signs Temperature 96.7 F L 01/28/25 23:36 Pulse Rate 98 01/28/25 23:36 Respiratory Rate 20 01/28/25 23:36 Blood Pressure 148/95 H 01/28/25 23:36 Pulse Oximetry 100 01/28/25 23:36 Oxygen Delivery Room Air 01/28/25 23:36 Temperature 98.0 F 01/29/25 03:32 Pulse Rate 92 01/29/25 03:32 Respiratory Rate 20 01/29/25 03:32 Blood Pressure 161/85 H 01/29/25 03:32 Pulse Oximetry 100 01/29/25 03:32 Oxygen Delivery Room Air 01/29/25 02:11 Fraction of Inspired Oxygen 01/29/25 02:11 <Jennifer Higginbotham PA-C - Last Filed: 01/30/25 10:41> Vital Signs Temperature 96.7 F L 01/28/25 23:36 Pulse Rate 98 01/28/25 23:36 Respiratory Rate 20 01/28/25 23:36 Blood Pressure 148/95 H 01/28/25 23:36 Pulse Oximetry 100 01/28/25 23:36 Oxygen Delivery Room Air 01/28/25 23:36 Temperature 98.0 F 01/29/25 03:32 Pulse Rate 92 01/29/25 03:32 Respiratory Rate 20 01/29/25 03:32 Blood Pressure 161/85 H 01/29/25 03:32 Pulse Oximetry 100 01/29/25 03:32 Oxygen Delivery Room Air 01/29/25 02:11 Fraction of Inspired Oxygen 01/29/25 02:11 <Esteban Farley MD - Last Filed: 01/29/25 03:16> MDM Differential Diagnosis Differential Diagnosis: Pneumonia, viral bronchitis, COVID flu, RSV Chest x-ray showed no focal infiltrate Patient is positive for influenza A Patient was given a dose of Decadron in the emergency department will be signed discharged home on prednisone and Tessalon Perles <Esteban Farley MD - Last Filed: 01/29/25 03:16> Lab Data Labs: Lab Results 01/29/25 Range/Units 00:56 Influenza A (RT-PCR) Positive A (Negative) Influenza B (RT-PCR) Negative (Negative) RSV (RT-PCR) Negative (Negative) SARS-CoV-2 RNA (RT-PCR) Negative (Negative) <Jennifer Higginbotham PA-C - Last Filed: 01/30/25 10:41> Lab Results 01/29/25 Range/Units 00:56 Influenza A (RT-PCR) Positive A (Negative) Influenza B (RT-PCR) Negative (Negative) RSV (RT-PCR) Negative (Negative) SARS-CoV-2 RNA (RT-PCR) Negative (Negative) <Esteban Farley MD - Last Filed: 01/29/25 03:16> Imaging Data Radiologist's impression: ITS Impressions Chest X-Ray 01/29/25 10:41 IMPRESSION: 1. No acute cardiopulmonary findings. <Jennifer Higginbotham PA-C - Last Filed: 01/30/25 10:41> ITS Impressions Chest X-Ray 01/29/25 10:41 IMPRESSION: 1. No acute cardiopulmonary findings. <Esteban Farley MD - Last Filed: 01/29/25 03:16> Critical Care Time Critical Care Time Critical Care Time: No <Jennifer Higginbotham PA-C - Last Filed: 01/30/25 10:41> Discharge Plan Discharge Clinical Impression: Acute viral bronchitis, Influenza A <Jennifer Higginbotham PA-C - Last Filed: 01/30/25 10:41> Patient Disposition: Home <Jennifer Higginbotham PA-C - Last Filed: 01/30/25 10:41> Condition: Stable <Jennifer Higginbotham PA-C - Last Filed: 01/30/25 10:41> Instructions: Antibiotic Form, Influenza (ED), Acute Bronchitis (ED) <Jennifer Higginbotham PA-C - Last Filed: 01/30/25 10:41> Patient Language: Guamanian <Jennifer Higginbotham PA-C - Last Filed: 01/30/25 10:41> Prescriptions: New prednisone 20 mg tablet 40 mg PO DAILY 5 Days Qty: 10 0RF benzonatate 200 mg capsule 200 mg PO TID PRN (Reason: cough) Qty: 21 0RF No Action fluticasone propion-salmeterol 113-14 mcg/actuation aerosol powdr breath activated inhalation levothyroxine 150 mcg tablet PO DAILY ezetimibe 10 mg tablet PO DAILY losartan 50 mg tablet PO DAILY albuterol sulfate 90 mcg/actuation HFA aerosol inhaler inhalation <Jennifer Higginbotham PA-C - Last Filed: 01/30/25 10:41> Follow-up/Referrals: Nicole,Jesus Pritchard MD [Primary Care Provider] <Jennifer Higginbotham PA-C - Last Filed: 01/30/25 10:41> Time of Disposition: 03:16 <Jennifer Higginbotham PA-C - Last Filed: 01/30/25 10:41> 03:16 <Esteban Farley MD - Last Filed: 01/29/25 03:16>
[2025-01-29 01:37] LABS: Influenza A QL RT-PCR Positive (Negative); Influenza B QL RT-PCR Negative (Negative); RSV RNA, RT-PCR Negative (Negative); SARS-CoV-2 RNA PCR Negative (Negative)
[2025-01-29] MEDS: IPRATROPIUM 0.5 MG/ALBUTEROL SULFATE 2.5 MG (BASE) AMPUL.NEB 3 ML INHALATION (02:10)
[2025-01-29 02:11] VITALS: PULSE 85; RESP 20; O2SAT 97
--- OUTSIDE RECORDS SUMMARY | 2025-01-29 02:45 | XMS_ITS | Clinical Summary ---
Author Organization [facility] Address [address] [place] [address] Care Team Providers Care Brass [employer] Instruments Tube Bender Name Role Phone Jesus Nicole MD Primary Care Provider [phone] Social History Tobacco Use Types Packs/Day Years [...] age to complete this topic Insurance MEDICARE [facility] Care Teams [employer] Tube Bender Relationship Specialty Start Date End Date Jesus Nicole MD [address] [address] PCP - General INTERNAL MEDICINE 12/08/22
--- OUTSIDE RECORDS SUMMARY | 2025-01-29 02:45 | XMS_ITS | Clinical Summary ---
Author Organization [facility] [employer] Address [address] [place] [address] Care Team Providers Care Tool Maintenance Worker Name Role Phone Unavailable Primary Care Provider Unavailabl e Source Comments [facility] [employer],non-owned Affiliates and Associated Physician Practices is amultiple site organization consisting of ambulatory clinics and hospital sitesin [place], [place], [place] and [place]. This disclosure is being madepursuant to the Care Everywhere program and may not contain all information available regarding this patient. Last updated 17.[facility] [employer] Social History Tobacco Use Types Packs/Day Years [...] age to complete this topic Insurance MEDICARE [facility] MEDICARE [facility]
--- OUTSIDE RECORDS SUMMARY | 2025-01-29 02:45 | XMS_ITS | Patient Health Record ---
Author Organization [facility] Address [address] [facility] [place] [address] Phone [phone] Care Team Providers Care Bilingual Manager Name Role Phone JEM SANDHU MD Primary [...] osteoarthritis of the pelvic region and thigh (694697126) Unilateral primary osteoarthritis, left hip (M16.12) Added On:06/18 Active confirmed Problem Osteoarthritis of hip (280573388) Osteoarthritis of hip, unspecified (M16.9) Added On:06/18 Active confirmed Problem Pain of left hip joint (finding) (177981084851048) Pain in left hip (M25.552) Added On:06/18 Active confirmed Problem Solitary sacroiliitis (481304910) Sacroiliitis, not elsewhere classified (M46.1) Added On:08/22 Active confirmed Problem Lumbosacral spondylosis without myelopathy (35611577) Spondylosis without myelopathy or radiculopathy, lumbar region (M47.816) Added On:06/05 Active confirmed Problem Lumbosacral spondylosis without myelopathy (disorder) (16456730) Spondylosis without myelopathy or radiculopathy, lumbosacral region (M47.817) Added On:06/05 Active confirmed Problem Degeneration of lumbar intervertebral disc (53912983) Other intervertebral disc degeneration, lumbar region (M51.36) Added On:06/05 Active confirmed Problem Lumbar radiculopathy (458409344) Radiculopathy, lumbar region (M54.16) Added On:06/05 Active confirmed Problem Spinal stenosis of lumbar region (81970421) Osseous stenosis of neural canal of lumbar region (M99.33) Added On:06/05 Active confirmed Plan Of Treatment No Information Insurance Providers Payer Name Payer Address Payer Phone Subscriber Number Group Number Insured Name Patient Relationship to Insured Coverage Start Date Coverage End Date Medicare [place] [address] [address] [place] [phone] [id number] BO MARTINEZ Self - patient is the insured [facility] [address] [place] [address] [phone] [id number] BO MARTINEZ Self - patient is the insured Medical (General) History Medical History History ICD Code Hyperthyroidism Asthma BPH Umbilical hernia Skin cancer Hypothyroidism Surgical History Surgery Date(Month/Year) Bilateral carpal tunnel release 2020
--- OUTSIDE RECORDS SUMMARY | 2025-01-29 02:45 | XMS_ITS | Encounter Summary ---
Author Organization [facility] Address [address] [place] [address] Care Team Providers Care Sampler Tester Name Role Phone Unavailable Primary Care Provider Unavailabl e Encounter Details Date Type Department Care Team (Late st Contact Info) Description 06/25/2020 Lab Requisition [facility] DermPath Lab [address] [facility] [facility] [place] [id number] Naveed Borges MD [address] [place] [address] Social History Tobacco Use Types [...] AM CDT) Case Report Dermatopathology Report Case: [id number] Authorizing Provider: Naveed Borges MD Collected: 06/24/2020 12:00 AM Ordering Location: [facility] DermPath Lab Received: 06/25/2020 12:39 [...] of a nail (3 pieces) clipping measuring 8h3b2hz, 7b7m7xl, 7p4z2dr. Jar 0. 1 7:09 PM CDT DERMATOPATHOLOGY [...] characteristic determined by the Dermatopathology Laboratory at [facility], directed by Dr. Rosey Lipscomb. These tests need not be, and therefore are not, approved by the [place] Food and Drug Administration. The tests are used for clinical purposes. Billing Codes Specimen Charges Stain Charges 44510 1 75119 1 7:09 PM CDT DERMATOPATHOLOGY LABORATORY Embedded Images 7:09 PM CDT DERMATOPATHOLOGY LABORATORY Pathology/Cytolog y TISSUE SPECIMEN FROM SKIN / Unknown 06/24/2020 06/25/2020 12:39 PM CDT Naveed Borges MD LAB - PATHOLOGY/CYTOLOGY ORD ERABLES Final Result DERMATOPATHOLOGY LABORATORY [facility] - Department of Dermatology [address], [address] [phone] documented in this encounter Visit Diagnoses Not on filedocumented in this encounter
--- OUTSIDE RECORDS SUMMARY | 2025-01-29 02:45 | XMS_ITS | Encounter Summary ---
Author Organization [facility] Address [address] [facility] [place] [address] Care Team Providers Care Stockroom Helper Name Role Phone Unavailable Primary Care Provider Unavailabl e Encounter Details Date Type Department Care Team (Late st Contact Info) Description 08/05/2022 Lab Requisition [facility] - DermPath Lab [address] [facility] [place] [id number] Naveed Borges MD [address] [place] [address] Social History Tobacco Use Types Packs/Day Years [...] AM CDT) Case Report Dermatopathology Report Case: [id number] Authorizing Provider: Naveed Borges MD Collected: 08/04/2022 12:00 AM Ordering Location: [facility] DermPath Lab Received: 08/05/2022 02:24 [...] specimen consists of a shave biopsy measuring 56r93b1 mm. Jar 0. 3 4:50 PM CDT [...] characteristic determined by the Dermatopathology Laboratory at [facility], directed by Dr. Rosey Lipscomb. These tests need not be, and therefore are not, approved by the [place] Food and Drug Administration. The tests are used for clinical purposes. Billing Codes Specimen Charges Stain Charges 83193 1 3 4:50 PM CDT DERMATOPATHOLOGY LABORATORY Embedded Images 3 4:50 PM CDT DERMATOPATHOLOGY LABORATORY Pathology/Cytolog y TISSUE SPECIMEN FROM SKIN / Unknown 08/04/2022 08/05/2022 2:24 PM CDT Naveed Borges MD LAB - PATHOLOGY/CYTOLOGY ORD ERABLES Final Result DERMATOPATHOLOGY LABORATORY [facility] - Department of Dermatology [address] [phone] documented in this encounter Visit Diagnoses Not on filedocumented in this encounter
--- OUTSIDE RECORDS SUMMARY | 2025-01-29 02:45 | XMS_ITS | Encounter Summary ---
Author Organization [facility] Address [address] [place] [address] Care Team Providers Care Corrections Nurse Name Role Phone Unavailable Primary Care Provider Unavailabl e Encounter Details Date Type Department Care Team (Late st Contact Info) Description 02/24/2023 Lab Requisition [facility] - DermPath Lab [address] [facility] [place] [address] Reena Barton DO [address] [facility] [address] [place] [address] Social History Tobacco Use Types Packs/Day Years [...] Diagnosis Comments DERMATOPATHOLOGY Routine 02/24/2023 8:43 AM AUDIT LEAD documented in this encounter Results * DERMATOPATHOLOGY (02/24/2023 8:43 AM AUDIT LEAD) Case Report Dermatopathology Report Case: [id number] Authorizing Provider: Reena Barton DO Collected: 02/24/2023 08:43 AM Ordering Location: [facility] DermPath Lab Received: 02/24/2023 01:31 PM Pathologist: Jennifer Galvez MD Specimen: Skin, left upper arm 4 4:06 PM AUDIT LEAD DERMATOPATHOLOGY LABORATORY Final Diagnosis Specimen A. 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 The specimen consists of a non-oriented ellipse of skin measuring 50h99s2 mm. The margin is inked green. The 12 o'clock and 6 o'clock tips are submitted in cassette 1. The remainder of the ellipse is serially sectioned and submitted in cassette 2 - 3. Jar 0. 4 4:06 PM [facility] DERMATOPATHOLOGY LABORATORY Microscopic Description Specimen A. SKIN, left upper arm: There are fibroblasts and collagen bundles oriented parallel to the skin surface. There are elongated blood vessels, some of which are oriented perpendicular to the skin surface. No residual squamous cell carcinoma is identified. 4 4:06 PM [facility] DERMATOPATHOLOGY LABORATORY Disclaimer An external and internal positive and negative controls are appropriate for the histochemical, immunohistochemical and immunofluorescence stain(s) in this case (if any), except where stated explicitly. The performance characteristics of the stain(s) cited in this report were developed and its performance characteristic determined by the Dermatopathology Laboratory at [facility], directed by Dr. Rosey Lipscomb. These tests need not be, and therefore are not, approved by the [place] Food and Drug Administration. The tests are used for clinical purposes. Billing Codes Specimen Charges Stain Charges 50965 1 4 4:06 PM [facility] DERMATOPATHOLOGY LABORATORY Embedded Images 4 4:06 PM [facility] DERMATOPATHOLOGY LABORATORY Pathology/Cytolo gy TISSUE SPECIMEN FROM SKIN / Unknown 02/24/2023 8:43 AM AUDIT LEAD 02/24/2023 1:31 PM [facility] us Reena Barton DO LAB - PATHOLOGY/CYTOLOGY ORDERABLES Final Result DERMATOPATHOLOGY LABORATORY [facility] - Department of Dermatology [address] [phone] documented in this encounter Visit Diagnoses Not on filedocumented in this encounter
--- OUTSIDE RECORDS SUMMARY | 2025-01-29 02:45 | XMS_ITS | Encounter Summary ---
Author Organization [facility] Address [address] [place] [address] Care Team Providers Care Casket Assembler Metal Name Role Phone Unavailable Primary Care Provider Unavailabl e Encounter Details Date Type Department Care Team (Late st Contact Info) Description 04/09/2022 Lab Requisition [facility] DermPath Lab [address] [facility] [place] [phone] Naveed Borges MD [address] [place] [address] Social History Tobacco Use Types Packs/Day Years [...] Diagnosis Comments DERMATOPATHOLOGY Routine 04/08/2022 3:33 AM ALLERGIST/IMMUNOLOGIST documented in this encounter Results * DERMATOPATHOLOGY (04/08/2022 3:33 AM ALLERGIST/IMMUNOLOGIST) Case Report Dermatopathology Report Case: [id number] Authorizing Provider: Naveed Borges MD Collected: 04/08/2022 03:33 AM Ordering Location: [facility] DermPath Lab Received: 04/09/2022 02:13 PM Pathologist: Linh Lipscomb MD Specimen: Skin, neck - behind right earlobe 3 4:41 PM ALLERGIST/IMMUNOLOGIST DERMATOPATHOLOGY LABORATORY Final Diagnosis Specimen A. 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 Please Check Margins. 3 4:41 PM [facility] DERMATOPATHOLOGY LABORATORY Gross Description Specimen A: Received is one formalin filled container labeled with the patients name and designated neck - behind right earlobe. The specimen consists of a shave removal measuring [id number] and it is inked. Jar 0. 3 4:41 PM [facility] DERMATOPATHOLOGY LABORATORY Microscopic Description Specimen A. SKIN, neck - behind right earlobe: The epidermis shows parakeratosis, full thickness disorderly maturation of keratinocytes, mitoses at different levels, and dyskeratotic cells. This lesion is not present at the sampled margin of the specimen. 3 4:41 PM [facility] DERMATOPATHOLOGY LABORATORY Disclaimer An external and internal positive and negative controls are appropriate for the histochemical, immunohistochemical and immunofluorescence stain(s) in this case (if any), except where stated explicitly. The performance characteristics of the stain(s) cited in this report were developed and its performance characteristic determined by the Dermatopathology Laboratory at [facility], directed by Dr. Rosey Lipscomb. These tests need not be, and therefore are not, approved by the [place] Food and Drug Administration. The tests are used for clinical purposes. Billing Codes Specimen Charges Stain Charges 88251 1 3 4:41 PM [facility] DERMATOPATHOLOGY LABORATORY Embedded Images 3 4:41 PM [facility] DERMATOPATHOLOGY LABORATORY Pathology/Cytolo gy TISSUE SPECIMEN FROM SKIN / Unknown 04/08/2022 3:33 AM ALLERGIST/IMMUNOLOGIST 04/09/2022 2:13 PM [facility] Naveed Borges MD LAB - PATHOLOGY/CYTOLOGY ORD ERABLES Final Result DERMATOPATHOLOGY LABORATORY [facility] - Department of Dermatology [address] [phone] documented in this encounter Visit Diagnoses Not on filedocumented in this encounter
--- OUTSIDE RECORDS SUMMARY | 2025-01-29 02:45 | XMS_ITS | Encounter Summary ---
Author Organization [facility] Address [address] [place] [address] Care Team Providers Care Oxidation Engineer Name Role Phone Unavailable Primary Care Provider Unavailabl e Encounter Details Date Type Department Care Team (Late st Contact Info) Description 12/29/2022 Lab Requisition [facility] - DermPath Lab [address] [place] [address] Reena Barotn DO [address] [facility] [address] [place] [address] Social History Tobacco Use Types Packs/Day Years [...] Comments DERMATOPATHOLOGY Routine 12/29/2022 10:0 8 AM [facility] documented in this encounter Results * DERMATOPATHOLOGY (12/29/2022 10:08 AM [facility]) Case Report Dermatopathology Report Case: [id number] Authorizing Provider: Reena Barton DO Collected: 12/29/2022 10:08 AM Ordering Location: [facility] DermPath Lab Received: 12/29/2022 03:54 PM Pathologist: Mily Morgan MD Specimen: Skin, left upper arm 3 3:46 PM [facility]MAT[facility] Final Diagnosis Specimen A. 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 The specimen consists of a shave biopsy measuring 7x6x1 mm. Jar 0. 3 3:46 PM [facility] DERMATOPATHOLOGY [facility]ORATORY Microscopic Description Specimen A. SKIN, left upper arm: The epidermis shows parakeratosis, full thickness disorderly maturation of keratinocytes, mitoses at different levels, and dyskeratotic cells. 3 3:46 PM [facility] DERMATOPATHOLOGY [facility]ORATORY Disclaimer An external and internal positive and negative controls are appropriate for the histochemical, immunohistochemical and immunofluorescence stain(s) in this case (if any), except where stated explicitly. The performance characteristics of the stain(s) cited in this report were developed and its performance characteristic determined by the Dermatopathology Laboratory at [facility], directed by Dr. Rosey Lipscomb. These tests need not be, and therefore are not, approved by the [place] Food and Drug Administration. The tests are used for clinical purposes. Billing Codes Specimen Charges Stain Charges 69479 1 3 3:46 PM [facility] DERMATOPATHOLOGY [facility]ORATORY Embedded Images 3 3:46 PM [facility] DERMATOPATHOLOGY LABORATORY Pathology/Cytolo gy TISSUE SPECIMEN FROM SKIN / Unknown 12/29/2022 10:08 AM [facility] [employer] 12/29/2022 3:54 PM [facility] us Reena Barton DO LAB - PATHOLOGY/CYTOLOGY ORDERABLES Final Result DERMATOPATHOLOGY LABORATORY [facility] - Department of Dermatology [address] [place] [address], [facility] [phone] documented in this encounter Visit Diagnoses Not on filedocumented in this encounter
[2025-01-29] MEDS: dexAMETHasone SOD PHOS INJ 10 MG/ML 1 ML VIAL IM (03:08)
[2025-01-29 03:32] VITALS: BP 161/85; PULSE 92; RESP 20; TEMP 36.7; O2SAT 100
== END 2025-01-29 03:34 | disposition home or self-care (01) ==
PROVIDERS: Physician Assistant; Emergency Provider Emergency Medicine; PCP Internal Medicine
DX: J10.1 Influenza due to other identified influenza virus with other respiratory manifestations (principal); J20.8 Acute bronchitis due to other specified organisms; I10 Essential (primary) hypertension; Z20.822 Contact with and (suspected) exposure to COVID-19
CPT/HCPCS: 71046; 87637; 93005; 94640; 96372; 99283; J1100